=== PATIENT | female | born 1935 | race Caucasian/White ===

== ENCOUNTER → 2018-01-13 10:54 | Outpatient (CLI) | payer MEDICARE, OTHER, SELFPAY ==
--- NOTE | 2018-01-13 11:04 | XR_ITS ---
XR hip LT 2-3V w/pelvis HISTORY: ITS.REASON: LEFT HIP PAIN ORDERING PHYSICIAN: Isauro Garrett MD PATIENT AGE: 82 years COMPARISON: None FINDINGS: No fracture or dislocation is evident. There is mild asymmetrical joint space narrowing of both hips left slightly greater than right. No lytic or blastic change. Unremarkable soft tissues IMPRESSION: Mild osteoarthritic change of both hips
== END ==
PROVIDERS: PCP Family Medicine; Visit Provider Family Medicine
DX: M25.552 Pain in left hip (principal)
CPT/HCPCS: 73502

== ENCOUNTER → 2018-01-30 13:09 | Outpatient (CLI) | payer MEDICARE, OTHER, SELFPAY ==
--- NOTE | 2018-01-30 13:15 | CT_ITS ---
CT hip LT wo con INDICATION: ITS.REASON: LT HIP PAIN ORDERING PHYSICIAN: Isauro Garrett MD PATIENT AGE: 82 years COMPARISON: None TECHNIQUE: Axial images are obtained without contrast. Sagittal and coronal reformatted images are reviewed as well. All CT scans at the facility use one or more dose reduction, viz: automated exposure control, ma/kV adjustment per patient size (including targeted exams where dose is matched to indication, i.e. head), or iterative reconstruction technique. FINDINGS: The left hip has an unremarkable appearance. No femur or acetabular fracture or dislocation is evident. There is only minimal narrowing of the hip joint space superiorly. No obvious soft tissue mass. There is ill-defined decreased density involving the mid aspect of the sacrum on the left. The superior sacrum is not imaged. Similar but less apparent lucency noted in the right mid sacrum. There is diffuse osteopenia of the sacrum. These findings are consistent with nondisplaced insufficiency fractures of the sacrum. On the sagittal reformatted images there is some minimal buckling of the mid aspect of the sacrum. This is age indeterminate. IMPRESSION: 1. Bilateral insufficiency fractures of the sacrum. 2. Buckling of the mid aspect of the sacrum suggesting nondisplaced fracture. 3. Negative CT of the left hip IMPRESSION:
== END ==
PROVIDERS: Family Provider Family Medicine; PCP Family Medicine; Visit Provider Family Medicine
DX: M25.552 Pain in left hip (principal)
CPT/HCPCS: 73700

== ENCOUNTER → 2018-03-27 12:26 | Outpatient (CLI) | payer MEDICARE, OTHER, SELFPAY ==
--- NOTE | 2018-03-27 12:30 | XR_ITS ---
XR hip RT 2-3V w/pelvis HISTORY: ITS.REASON: right hip pain ORDERING PHYSICIAN: Chuy Arguello MD PATIENT AGE: 83 years COMPARISON: None FINDINGS: No acute fracture or dislocation evident of the right hip. Increase in sclerosis is noted over the sacrum along the lower aspect of both SI joints and may be due to healing insufficiency fractures that were seen on a recent CT of 01/30/2018.. Calcification noted along the medial aspect of the left obturator foramen and may be due to a healing inferior pubic ramus fracture IMPRESSION: 1. No acute finding of the right hip. 2. Suspect healing fractures of the sacrum in the left inferior pubic ramus
--- NOTE | 2018-03-27 12:30 | XR_ITS ---
XR hip LT 2-3V w/pelvis HISTORY: Left hip pain ITS.REASON: left hip trochanteric bursitis ORDERING PHYSICIAN: Chuy Arguello MD PATIENT AGE: 83 years COMPARISON: 01/13/2018 FINDINGS: There are mild osteoarthritic changes of the left hip. No acute fracture or dislocation is evident. Faint calcification has developed projecting over the medial aspect of the left obturator foramen and could be due to a healing inferior pubic ramus fracture with callus formation. CT may confirm. The greater trochanter has an unremarkable appearance. IMPRESSION: 1 mild osteoarthritic change left hip. 2. Faint calcification along the medial aspect of the left obturator foramen possibly related to healing rami fractures
--- NOTE | 2018-03-27 12:30 | XR_ITS ---
XR sacrum coccyx min 2V CLINICAL INDICATION: ITS.REASON: bilateral sacral insufficiency fx ORDERING PHYSICIAN: Chuy Arguello MD PATIENT AGE: 83 years Comparison: 01/13/2018 FINDINGS: There is slight increased sclerosis involving the mid aspect of the sacrum on both sides and may be related to healing insufficiency fractures. No displaced fracture is apparent. There are degenerative changes of the lower lumbar spine. IMPRESSION: Slight increased sclerosis of the right and left aspect of the sacrum which may be due to healing insufficiency fractures
== END ==
PROVIDERS: PCP Family Medicine; Visit Provider Orthopaedic Surgery
DX: M70.62 Trochanteric bursitis, left hip (principal); M25.551 Pain in right hip; M84.48XA Pathological fracture, other site, initial encounter for fracture
CPT/HCPCS: 72220; 73502

== ENCOUNTER → 2018-04-06 09:55 | Outpatient (CLI) | payer MEDICARE, OTHER, SELFPAY ==
--- NOTE | 2018-04-06 | CA_ITS ---
PROCEDURE: 2-D M-mode and color Doppler study INDICATIONS FOR THE TEST: Chest pain COPD Heart Murmur Tobacco SmokingEX Palpitations Fatigue+ Syncope Edema+ Hypertension+Diabetes Mellitus Rheumatic Fever SOB MAY Obesity Hyperlipidemia+ Family History HD+ Additional History CHF, hx MO 2 years ago PATIENT INFORMATION HEIGHT: 66 WEIGHT: 137 GENDER: Female B/P: 168/97 2-D/M-MODE INTERPRETATION: 2-D MEASUREMENTS OBSERVED VALUES IN CMS Right Ventricular Dimension (RVDd) 2.3 Interventricular Septum (Thickness)(IVsd) 0.7 Left Ventricular Internal Dimensions(LVIDd) 4.2 Left Ventricular Posterior Wall (Thickness)(LVPWd) 0.7 Aortic Root 2.9 Aortic Cusp Separation 2.1 Left Atrial Dimensions (LAD) 3.5 2D 1. Left atrium is mildly enlarged, left ventricle is normal size, mild concentric left ventricular hypertrophy, visually estimated ejection fraction 55% with no regional wall motion abnormality. 2. The right atrium and right ventricle are normal size and contractility. 3. The aortic valve is minimally thickened and fibrosed. 4. The mitral and tricuspid valvular grossly normal. 5. The pulmonic valve is poorly visualized. 6. No significant pericardial effusion noted. DOPPLER INTERROGATION: Doppler interrogation of the aortic, mitral and tricuspid valvular presence of mild mitral and tricuspid regurgitation, tricuspid regurgitation jet velocity is inadequate for calculation of the right ventricular systolic pressure, grade 1 diastolic dysfunction seen with tissue Doppler evidence of raised left atrial pressure CONCLUSION: 1. Mildly enlarged left atrium, normal left ventricular size, mild concentric left ventricular hypertrophy, visually estimated ejection fraction 55% with no regional wall motion abnormality, grade 1 diastolic dysfunction seen with tissue Doppler evidence of raised left atrial pressure. 2. Mild mitral and tricuspid regurgitation 3. No significant pericardial effusion noted.
--- NOTE | 2018-04-06 10:58 | XR_ITS ---
XR DEXA axial skeleton HISTORY: ITS.REASON: OSTEOPAROSIS ORDERING PHYSICIAN: Ayleen Munoz PATIENT AGE: 83 years COMPARISON: None FINDINGS: The BMD measured at the Right Total femoral neck is 0.471 g/cm squared with a T score of -4.3. This is considered Osteoporotic according to the World Health Organization criteria. Fracture risk is High. Treatment is advised. IMPRESSION: Osteoporosis with high fracture risk. Treatment is advised. Recommend follow-up exam March 2019
== END ==
PROVIDERS: Family Provider Family Medicine; PCP Family Medicine; Visit Provider Nurse Practitioner Family
DX: M81.0 Age-related osteoporosis without current pathological fracture (principal); I50.9 Heart failure, unspecified; I48.0 Paroxysmal atrial fibrillation
CPT/HCPCS: 77080; 93306

== ENCOUNTER → 2018-10-31 09:39 | Outpatient (CLI) | payer MEDICARE, OTHER, SELFPAY ==
--- NOTE | 2018-10-31 09:47 | XR_ITS ---
XR hip LT 2-3V w/pelvis HISTORY: Follow-up hip replacement ITS.REASON: sp LT bipoblar hemiarthroplasty DOS 10/19/18 ORDERING PHYSICIAN: Chuy Arguello MD PATIENT AGE: 83 years COMPARISON: 10/18/2018 FINDINGS: Status post bipolar prosthesis placed on the left with good alignment. There is no fracture of the pubis on the left medially. IMPRESSION: Good alignment status post left hip bipolar hemiarthroplasty placement
--- NOTE | 2018-10-31 09:47 | XR_ITS ---
XR humerus LT CLINICAL INDICATION: Follow-up ORIF ITS.REASON: sp ORIF LT humerus, DOS 10/19/18 ORDERING PHYSICIAN: Chuy Arguello MD PATIENT AGE: 83 years Comparison: 10/18/2018 FINDINGS: Status post ORIF proximal left humeral fracture. Bone plate remains in good position along with bone cement at the fracture site. There is good alignment. IMPRESSION: No change status post ORIF left humeral neck fracture with good alignment
== END ==
PROVIDERS: PCP Family Medicine; Visit Provider Orthopaedic Surgery
DX: Z48.89 Encounter for other specified surgical aftercare (principal)
CPT/HCPCS: 73060; 73502

== ENCOUNTER → 2018-12-05 13:08 | Outpatient (CLI) | payer MEDICARE, OTHER, SELFPAY ==
--- NOTE | 2018-12-05 13:17 | XR_ITS ---
XR shoulder LT min 2V HISTORY: ITS.REASON: sp ORIF LT proximal humerus dos 10/19/18 ORDERING PHYSICIAN: Chuy Arguello MD PATIENT AGE: 83 years Comparison: 10/16/2018 FINDINGS: Status post ORIF humeral neck fracture. Bone plate with multiple screws is present from a lateral approach. Bone cement also present at the fracture site. There is good alignment. There are multiple old left-sided rib fractures IMPRESSION: Good alignment status post ORIF left humeral neck fracture.
== END ==
PROVIDERS: PCP Family Medicine; Visit Provider Orthopaedic Surgery
DX: Z48.89 Encounter for other specified surgical aftercare (principal)
CPT/HCPCS: 73030

== ENCOUNTER → 2019-01-16 13:06 | Outpatient (CLI) | payer MEDICARE, OTHER, SELFPAY ==
--- NOTE | 2019-01-16 13:13 | XR_ITS ---
XR shoulder LT min 2V HISTORY: Follow-up ORIF/fracture ITS.REASON: sp ORIF LT proximal humerus dos 10/19/18 ORDERING PHYSICIAN: Chuy Arguello MD PATIENT AGE: 83 years Comparison: 12/05/2018 FINDINGS: Status post ORIF left humerus neck fracture with lateral bone plate along the humeral head neck and proximal shaft. Bone cement noted at the fracture site. There is good alignment. No evidence of dislocation. There are multiple old left-sided rib fractures. IMPRESSION: Good alignment status post ORIF left humeral neck fracture
--- NOTE | 2019-01-16 13:13 | XR_ITS ---
XR hip LT 2-3V w/pelvis HISTORY: Follow-up hip replacement ITS.REASON: sp LT bipolar hemiarthroplasty ORDERING PHYSICIAN: Chuy Arguello MD PATIENT AGE: 83 years COMPARISON: 10/31/2018 FINDINGS: Bipolar prosthesis remains in place within the left hip with good alignment. No evidence of orthopedic complications. There is sclerosis of the left superior and inferior pubic ramus junction consistent with an old fracture as before. IMPRESSION: No change status post left hip bipolar prosthesis placement with good alignment
== END ==
PROVIDERS: PCP Family Medicine; Visit Provider Orthopaedic Surgery
DX: Z48.89 Encounter for other specified surgical aftercare (principal); M25.512 Pain in left shoulder; M25.552 Pain in left hip
CPT/HCPCS: 73030; 73502

== ENCOUNTER → 2020-01-14 09:08 | Outpatient (CLI) | payer MEDICARE, OTHER, SELFPAY ==
--- NOTE | 2020-01-14 09:26 | XR_ITS ---
PROCEDURE: XR LUMBAR SPINE MIN 4V CLINICAL INDICATION: The LOW BACK PAIN COMPARISON: ABDPELW CT abdomen pelvis w con from 05/07/2018 FINDINGS: There is normal alignment. There is diffuse osteopenia. There is acax-ig-ecrwtahs wedging the L2 vertebral body with loss of height centrally and anteriorly of approximately 30 percent. This was not present on a previous CT scan of 05/07/2018. There is minimal wedging of the L1 vertebral body 10-15 percent in very slight loss of height anteriorly L3. There is degenerative disc disease at L4-5 and L5-S1 and L1-L2 and T12-L1. No obvious retropulsion. The lumbar spine is partially obscured from the moderate amount of gas and stool within the bowel. There is a left hip prosthesis present. IMPRESSION: Mild wedging of L1-L2 and L3 greatest at the L2 level which has developed since previous CT scan. Consider MRI to determine if the fractures are acute . Dictated by: Iker Haile MD 01/16/2020 07:18 Electronically signed by Iker Haile MD in [facility] 01/16/2020 07:18
== END ==
PROVIDERS: PCP Family Medicine; Visit Provider Nurse Practitioner Family
DX: M54.5 Low back pain (principal)
CPT/HCPCS: 72110

== ENCOUNTER → 2020-02-05 10:52 | Outpatient (CLI) | payer MEDICARE, OTHER, SELFPAY ==
--- NOTE | 2020-02-05 10:56 | MR_ITS ---
PROCEDURE: MR LUMBAR SPINE WO CON CLINICAL INDICATION: COMPRESSION FX IN BACK. BACK PAIN WORSE ON RT SIDE WITH PAIN RADIATING DOWN RT LEG. NO INJURY. PAIN WORSE WHEN STANDING. PRIOR X-RAY 01-14-20 COMPARISON: CT ABDPELW CT abdomen pelvis w con from 05/07/2018 CR XR LUMBAR SPINE MIN 4V from 01/14/2020 TECHNIQUE: Standard multiplanar multiecho sequences are performed without contrast. 3-D MIP and myelographic images are also rendered and reviewed FINDINGS: The spinal cord ends at the L2 level. T11-T12 is unremarkable. T12-L1 unremarkable. L1-L2: Compression fractures present involving L2 with loss of height centrally and anteriorly of approximately 50 percent. There is mild retropulsion of the posterior superior aspect of L2 by approximately 5 mm. There is superior endplate is irregular with some increased T2 signal within the disc space. Edematous changes involve the remaining L2 vertebral body consistent with an acute compression fracture with bone marrow edema. There is bulging disc at L1-L2. There is facet ligamentum hypertrophy with moderate bilateral lateral recess and foraminal narrowing. There is kyphosis at the L1-L2 level. L2-L3: Facet ligamentum hypertrophy with moderate to severe bilateral lateral recess and foraminal narrowing L3-L4: Mild bulging disc with facet ligamentum hypertrophy with with resultant moderate to severe bilateral lateral recess and foraminal narrowing. There is transverse narrowing of the canal of 9 mm. L4-5: 3 mm anterolisthesis of L4 with bulging disc along with facet and ligamentum hypertrophy with moderate right and moderate to severe left foraminal narrowing. L5-S1: Facet ligamentum hypertrophy with right lateral recess and foraminal narrowing. 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 IMPRESSION: 1. L1-L2: Compression fractures present involving L2 with loss of height centrally and anteriorly of approximately 50 percent. There is mild retropulsion of the posterior superior aspect of L2 by approximately 5 mm. There is superior endplate is irregular with some increased T2 signal within the disc space. Edematous changes involve the remaining L2 vertebral body consistent with an acute compression fracture with bone marrow edema. There is bulging disc at L1-L2. There is facet ligamentum hypertrophy with moderate bilateral lateral recess and foraminal narrowing. There is kyphosis at the L1-L2 level. 2. L2-L3: Facet ligamentum hypertrophy with moderate to severe bilateral lateral recess and foraminal narrowing 3. L3-L4: Mild bulging disc with facet ligamentum hypertrophy with with resultant moderate to severe bilateral lateral recess and foraminal narrowing. There is transverse narrowing of the canal of 9 mm. 4. L4-5: 3 mm anterolisthesis of L4 with bulging disc along with facet and ligamentum hypertrophy with moderate right and moderate to severe left foraminal narrowing. 5. L5-S1: Facet ligamentum hypertrophy with right lateral recess and foraminal narrowing. 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 Dictated by: Iker Haile MD 02/06/2020 10:38 Iker Haile MD in [facility] 02/06/2020 10:38
== END ==
PROVIDERS: PCP Family Medicine; Visit Provider Nurse Practitioner Family
DX: M48.56XA Collapsed vertebra, not elsewhere classified, lumbar region, initial encounter for fracture (principal)
CPT/HCPCS: 72148; 76376

== ENCOUNTER → 2020-04-30 10:07 | Outpatient (CLI) | payer MEDICARE, OTHER, SELFPAY ==
--- NOTE | 2020-04-30 | MR_ITS ---
PROCEDURE: MR LUMBAR SPINE WO CON CLINICAL INDICATION: FX OF SPINE PRE OP FOR SURGERY Hx of spine fxs and this is pre op for kyphoplasty. Prior mr l-spine 02/05/20 COMPARISON: MR MR LUMBAR SPINE WO CON from 02/05/2020 TECHNIQUE: Standard multiplanar multiecho sequences are performed without contrast. 3-D MIP and myelographic images are also rendered and reviewed FINDINGS: Spinal cord ends at the L1-L2 level. L1-L2: There is severe wedge compression changes of L2 with loss of height centrally greater than 50 percent and loss of height anteriorly of approximately 50 percent. There is mild buckling of the posterior cortex of L1 protruding posteriorly by 5 mm. There is facet and ligamentum hypertrophy with narrowing of the canal at this level. The wedge compression changes of L2 have slightly increased compared to the previous exam. There is facet and ligamentum hypertrophy with severe bilateral lateral recess and foraminal narrowing. L2-L3: There has been interval development of wedge compression changes also at L3 with buckling of the cortex posteriorly and superiorly by 4 mm. Facet and ligamentum hypertrophy is present with severe bilateral lateral recess and foraminal narrowing. L3-L4: Degenerative disc disease with facet and ligamentum hypertrophy with severe bilateral foraminal narrowing and moderate bilateral lateral recess narrowing. L4-5: 4 mm anterolisthesis of L4 with bulging disc along with facet and ligamentum hypertrophy with severe bilateral foraminal narrowing. Bilateral lateral recess narrowing also noted. L5-S1: Mild concentric bulging disc with facet and ligamentum hypertrophy. IMPRESSION: Abnormal MRI of the lumbar spine. Wedge compression changes have increased at L1 and have developed at L2 with canal stenosis and retropulsion of the posterior superior aspect of these vertebral bodies. There is facet and ligamentum hypertrophy with bulging disc with multilevel severe lateral recess and foraminal narrowing. Please see above for detailed description at each level Dictated by: Iker Haile MD 05/02/2020 12:13 Iker Haile MD in [facility] 05/02/2020 12:13
== END ==
PROVIDERS: PCP Family Medicine; Visit Provider Orthopaedic Surgery
DX: M54.5 Low back pain (principal)
CPT/HCPCS: 72148; 76376

== ENCOUNTER 2022-05-08 16:07 | Inpatient (IN) | payer MEDICARE, OTHER, SELFPAY ==
--- NOTE | 2022-05-08 16:17 | CT_ITS ---
PROCEDURE INFORMATION: Exam: CT Cervical Spine Without Contrast Exam date and time: 05/08/2022 5:10 PM Age: 87 years old Clinical indication: Injury or trauma; Fall; Additional info: Fall on blood thinner TECHNIQUE: Imaging protocol: Computed tomography of the cervical spine without contrast. Radiation optimization: All CT scans at this facility use at least one of these dose optimization techniques: automated exposure control; mA and/or kV adjustment per patient size (includes targeted exams where dose is matched to clinical indication); or iterative reconstruction. COMPARISON: CT HEAD/BRAIN WO CON 05/08/2022 5:07 PM FINDINGS: Bones/joints: No acute fracture. Normal alignment. C2-C3: No significant disc protrusion. No severe spinal canal stenosis. No significant neural foraminal narrowing. C3-C4: No significant disc protrusion. No severe spinal canal stenosis. No significant neural foraminal narrowing. C4-C5: Disc space narrowing. No significant disc protrusion. No severe spinal canal stenosis. No significant neural foraminal narrowing. C5-C6: Vacuum disc. No significant disc protrusion. No severe spinal canal stenosis. No significant neural foraminal narrowing. C6-C7: Vacuum disc. No significant disc protrusion. No severe spinal canal stenosis. No significant neural foraminal narrowing. C7-T1: No significant disc protrusion. No severe spinal canal stenosis. No significant neural foraminal narrowing. Lungs: Lung apices are normal. Soft tissues: Unremarkable. IMPRESSION: No acute traumatic findings.
--- NOTE | 2022-05-08 16:17 | CT_ITS ---
PROCEDURE INFORMATION: Exam: CT Head Without Contrast Exam date and time: 05/08/2022 5:07 PM Age: 87 years old Clinical indication: Injury or trauma; Fall; Additional info: Fall- on blood thinner TECHNIQUE: Imaging protocol: Computed tomography of the head without contrast. Radiation optimization: All CT scans at this facility use at least one of these dose optimization techniques: automated exposure control; mA and/or kV adjustment per patient size (includes targeted exams where dose is matched to clinical indication); or iterative reconstruction. COMPARISON: HEADWO CT head/brain wo con 10/16/2018 6:51 PM FINDINGS: Brain: Periventricular and subcortical small vessel ischemic changes. Severe atrophy associated. No acute hemorrhage, mass effect, midline shift, or extra-axial fluid collection. Cerebral ventricles: No ventriculomegaly. Paranasal sinuses: Visualized sinuses are unremarkable. No fluid levels. Mastoid air cells: Visualized mastoid air cells are well aerated. Bones/joints: Unremarkable. No acute fracture. Soft tissues: Unremarkable. IMPRESSION: No acute traumatic intracranial abnormality.
--- NOTE | 2022-05-08 16:17 | CT_ITS ---
PROCEDURE INFORMATION: Exam: CTA Abdomen and Pelvis With Contrast Exam date and time: 05/08/2022 5:28 PM Age: 87 years old Clinical indication: Injury or trauma; Fall; Additional info: Fall on warfarin TECHNIQUE: Imaging protocol: Computed tomographic angiography of the abdomen and pelvis with contrast. 3D rendering (Not supervised by radiologist): MIP and/or 3D reconstructed images were created by the technologist. Radiation optimization: All CT scans at this facility use at least one of these dose optimization techniques: automated exposure control; mA and/or kV adjustment per patient size (includes targeted exams where dose is matched to clinical indication); or iterative reconstruction. Contrast material: ISOVUE; Contrast volume: 100 ml; Contrast route: INTRAVENOUS (IV); COMPARISON: CT BONY PELVIS 05/08/2022 5:19 PM FINDINGS: Aorta: There are scattered atherosclerotic changes of the abdominal aorta. There is no aortic aneurysm. Celiac trunk and mesenteric arteries: Celiac trunk, SMA and RAHCEL are patent. Renal arteries: Right left renal arteries are patent. Right iliac arteries: Right iliac arteries are patent. Left iliac arteries: Left iliac arteries are patent. Liver: No mass. Gallbladder and bile ducts: Gallbladder has been removed. There is mild associated dilatation the common bile duct Pancreas: Unremarkable. No mass. No ductal dilation. Spleen: Unremarkable. No splenomegaly. Adrenal glands: Unremarkable. No mass. Kidneys and ureters: Unremarkable. No solid mass. No hydronephrosis. Stomach and bowel: There is a large amount of stool throughout the colon that may reflect some degree of constipation. Appendix: No evidence of appendicitis. Intraperitoneal space: Unremarkable. No free air. No significant fluid collection. Lymph nodes: Unremarkable. No enlarged lymph nodes. Urinary bladder: Unremarkable. No mass. Reproductive: Unremarkable as visualized. Bones/joints: There is an acute subcapital right hip fracture. There is mottled appearance of both right left sacral wings similar to previous exam likely secondary to chronic unresolved stress reactions. Deformity left pubic bone unchanged secondary to old fracture. Soft tissues: Unremarkable. IMPRESSION: 1. No evidence of abdominal. 2. Acute subcapital right hip fracture. 3. Chronic unresolved stress fractures both sacral wings.
--- NOTE | 2022-05-08 16:17 | CT_ITS ---
PROCEDURE INFORMATION: Exam: CT Lumbar Spine Without Contrast Exam date and time: 05/08/2022 5:16 PM Age: 87 years old Clinical indication: Injury or trauma; Fall; Additional info: Fall- PT on blood thinner trauma TECHNIQUE: Imaging protocol: Computed tomography of the lumbar spine without contrast. Radiation optimization: All CT scans at this facility use at least one of these dose optimization techniques: automated exposure control; mA and/or kV adjustment per patient size (includes targeted exams where dose is matched to clinical indication); or iterative reconstruction. COMPARISON: MR LUMBAR SPINE WO CON 04/30/2020 10:19 AM FINDINGS: Bones/joints: There are severe wedge-shaped compression fracture of L2 and biconcave compression fracture of L3 unchanged. There are no new fractures detected. There is mild retro retropulsion of the superior endplate of L2 and L3 resulting in some degree of spinal stenosis unchanged. There are degenerative facet joint changes lower lumbar spine contributing to some degree of foraminal narrowing. There is no paraspinal or prevertebral soft tissue swelling. Soft tissues: Unremarkable. IMPRESSION: Stable severe compression fractures L2 and L3 vertebral bodies. No acute abnormalities.
--- NOTE | 2022-05-08 16:17 | XR_ITS ---
PROCEDURE INFORMATION: Exam: XR Right Shoulder Exam date and time: 05/08/2022 4:54 PM Age: 87 years old Clinical indication: Injury or trauma; Fall; Blunt trauma (contusions or hematomas); Shoulder; Right; Additional info: Fall- hit right shoulder and right hip TECHNIQUE: Imaging protocol: Radiologic exam of the Right shoulder. Views: 2 or more views. COMPARISON: CR (SHOULDER INTERNAL, SHOULDER, SHOULDER INTERNAL) 01/16/2019 1:17 PM FINDINGS: Bones/joints: Acute displaced transverse fracture of the right humeral neck with overriding and foreshortening of the humeral neck. There is relative lateral displacement of the humeral head. There is no dislocation. Soft tissues: Normal. IMPRESSION: Acute displaced transverse fracture right humeral neck.
--- NOTE | 2022-05-08 16:17 | CT_ITS ---
PROCEDURE INFORMATION: Exam: CT Thoracic Spine Without Contrast Exam date and time: 05/08/2022 5:13 PM Age: 87 years old Clinical indication: Injury or trauma; Fall; Additional info: Fall-- PT on blood thinner TECHNIQUE: Imaging protocol: Computed tomography of the thoracic spine without contrast. Radiation optimization: All CT scans at this facility use at least one of these dose optimization techniques: automated exposure control; mA and/or kV adjustment per patient size (includes targeted exams where dose is matched to clinical indication); or iterative reconstruction. COMPARISON: CT CERVICAL SPINE WO CON 05/08/2022 5:10 PM FINDINGS: Bones/joints: No acute fracture. Normal alignment. No significant disc protrusion. No severe spinal canal stenosis. Soft tissues: Unremarkable. IMPRESSION: No acute abnormalities.
--- NOTE | 2022-05-08 16:17 | CT_ITS ---
PROCEDURE INFORMATION: Exam: CTA Chest With Contrast Exam date and time: 05/08/2022 5:28 PM Age: 87 years old Clinical indication: Injury or trauma; Fall; Additional info: Fall on blood thinner TECHNIQUE: Imaging protocol: Computed tomographic angiography of the chest with contrast. 3D rendering (Not supervised by radiologist): MIP and/or 3D reconstructed images were created by the technologist. Radiation optimization: All CT scans at this facility use at least one of these dose optimization techniques: automated exposure control; mA and/or kV adjustment per patient size (includes targeted exams where dose is matched to clinical indication); or iterative reconstruction. Contrast material: ISOVUE; Contrast volume: 100 ml; Contrast route: INTRAVENOUS (IV); COMPARISON: CHESTW CT chest w con 05/07/2018 9:25 AM FINDINGS: Pulmonary arteries: Normal. No pulmonary emboli. Aorta: Unremarkable. No aortic aneurysm. No aortic dissection. Lungs: There are scattered minor atelectatic changes at the lung bases otherwise lung gayle are aerated and clear. Pleural spaces: Unremarkable. No pneumothorax. No pleural effusion. Heart: Heart is borderline enlarged. Mild calcification of coronary arteries. No significant pericardial effusion. Lymph nodes: Unremarkable. No enlarged lymph nodes. Diaphragm: Small hiatal hernia. Bones/joints: Acute comminuted fracture right humeral head and neck. Multiple old healed fractures left ribcage. Soft tissues: Unremarkable. IMPRESSION: 1. No evidence of intrathoracic injury. 2. Acute comminuted fracture right humeral head and neck.
--- NOTE | 2022-05-08 16:22 | CT_ITS ---
PROCEDURE INFORMATION: Exam: CT Pelvis Without Contrast; Skeletal Exam date and time: 05/08/2022 5:19 PM Age: 87 years old Clinical indication: Injury or trauma; Fall; Additional info: Fall on blood thinners TECHNIQUE: Imaging protocol: Computed tomography of the pelvis without contrast. Exam focused on the skeleton. Radiation optimization: All CT scans at this facility use at least one of these dose optimization techniques: automated exposure control; mA and/or kV adjustment per patient size (includes targeted exams where dose is matched to clinical indication); or iterative reconstruction. COMPARISON: ABDPELW CT abdomen pelvis w con 05/07/2018 9:25 AM FINDINGS: Bones/joints: There is an acute subcapital right hip fracture with overriding and foreshortening of the femoral neck and there is angulation at the fracture site. There is no dislocation of the right femoral head. There is a bipolar left hip prosthesis in place. There is deformity of the left pubic bone secondary to old healed fracture. There is mottled sclerotic bone changes involving the right and left sacral ala somewhat less pronounced than previous exam likely representing chronic unresolved stress fractures. Soft tissues: Unremarkable. IMPRESSION: 1. Acute subcapital right hip fracture. 2. Chronic unresolved stress reactions involving the right and left sacral wings. 3. Bipolar left hip prosthesis in place. 4. Deformity left pubic bone secondary to old healed fracture.
--- NOTE | 2022-05-08 16:27 | XR_ITS ---
PROCEDURE INFORMATION: Exam: XR Right Elbow Exam date and time: 05/08/2022 4:54 PM Age: 87 years old Clinical indication: Injury or trauma; Fall; Blunt trauma (contusions or hematomas); Shoulder; Right; Additional info: Fall- hit right shoulder and right hip TECHNIQUE: Imaging protocol: Radiologic exam of the Right elbow. Views: 3 or more views. COMPARISON: CR (SHOULDER INTERNAL, SHOULDER, SHOULDER INTERNAL) 01/16/2019 1:17 PM FINDINGS: Bones/joints: Normal alignment. No fracture. Joint surfaces preserved. Soft tissues: Normal. IMPRESSION: Negative right elbow
--- NOTE | 2022-05-08 16:27 | XR_ITS ---
PROCEDURE INFORMATION: Exam: XR Right Femur Exam date and time: 05/08/2022 4:54 PM Age: 87 years old Clinical indication: Injury or trauma; Fall; Blunt trauma; Hip; Right; Additional info: Fall- hit right hip and right shoulder TECHNIQUE: Imaging protocol: Radiologic exam of the Right femur. Views: 2 views. COMPARISON: CR (PELVIS AP, HIP, PELVIS AP) 01/16/2019 1:17 PM FINDINGS: Bones/joints: Acute displaced subcapital right hip fracture resulting in foreshortening of the femoral neck and varus angulation at the fracture site. Soft tissues: Unremarkable. IMPRESSION: Acute displaced subcapital right hip fracture.
--- NOTE | 2022-05-08 16:27 | XR_ITS ---
PROCEDURE INFORMATION: Exam: XR Right Knee Exam date and time: 05/08/2022 4:54 PM Age: 87 years old Clinical indication: Injury or trauma; Fall; Blunt trauma; Hip; Right; Additional info: Fall- hit right shoulder and right hip TECHNIQUE: Imaging protocol: Radiologic exam of the Right knee. Views: 1 or 2 views. COMPARISON: No relevant prior studies available. FINDINGS: Bones/joints: There are mild degenerative changes involving the medial knee compartment with mild joint space narrowing and subchondral sclerosis. Remaining joint surfaces are preserved. There is no fracture or malalignment.. Soft tissues: Normal. There is no joint effusion. IMPRESSION: Mild degenerative changes medial knee compartment. No acute bony abnormalities.
--- NOTE | 2022-05-08 16:27 | XR_ITS ---
PROCEDURE INFORMATION: Exam: XR Right Humerus Exam date and time: 05/08/2022 4:54 PM Age: 87 years old Clinical indication: Injury or trauma; Fall; Blunt trauma (contusions or hematomas); Shoulder; Right; Additional info: Fall- hit right shoulder and right hip. See right elbow images that are included. TECHNIQUE: Imaging protocol: Radiologic exam of the Right humerus. Views: 2 or more views. COMPARISON: CR (HUMERUS AP, HUMERUS, HUMERUS AP) 10/31/2018 9:51 AM FINDINGS: Bones/joints: Acute displaced transverse fracture of the right humeral neck with overriding and relative lateral displacement of the distal fracture component. There is no dislocation of the humeral head. Remaining osseous structures are intact. Soft tissues: Normal. IMPRESSION: Acute displaced fracture right humeral neck.
--- NOTE | 2022-05-08 16:29 | HMH.EDGENADL ---
Discharge Plan Disposition Patient Disposition: Admitted As Inpatient Chief Complaint: Fall Prescriptions Prescriptions: No Action aspirin 81 mg tablet,chewable 81 mg PO DAILY amiloride-hydrochlorothiazide 5-50 mg tablet 1 tab PO DAILY Rx Instructions: 5/50MG metoprolol succinate 50 MG tablet 50 mg PO DAILY warfarin 3 MG tablet 3.5 mg PO DAILY ibandronate 150 MG tablet 150 mg PO WEEKLY hydrocodone-acetaminophen 1 TAB tablet 1 tab PO Q4HP PRN (Reason: Moderate To Severe Pain) Qty: 120 0RF Referrals Follow up/Referrals: Provider,Referral, MD [Referring] - See instructions Clinical Impressions Clinical Impression: Fall, Closed right hip fracture, Closed fracture of proximal end of right humerus Discharge ED Provider: Tigre Rivero General Adult HPI General Chief complaint: Fall Stated complaint: fall Time Seen by Provider: 05/08/22 16:29 History of Present Illness HPI narrative: Patient is an 87-year-old female with past medical history of atrial fibrillation on warfarin who presents emergency department for evaluation of traumatic injury sustained a mechanical fall. Patient fell just prior to arrival on her right side without loss of consciousness. She is complaining of right shoulder pain, right hip pain. Pain is moderate to severe in intensity. No other acute complaints at this time. Related Data Home Medications Medication Instructions Recorded Confirmed amiloride 5 mg-hydrochlorothiazide 1 tab PO DAILY Hypertension 02/13/18 01/16/19 50 mg tablet aspirin 81 mg chewable tablet 81 mg PO DAILY HEART HEALTH 02/13/18 01/16/19 metoprolol succinate 50 mg 50 mg PO DAILY Hypertension 05/07/18 01/16/19 tablet,extended release 24 hr warfarin 3 mg tablet 3.5 mg PO DAILY daily 10/16/18 01/16/19 ibandronate 150 mg tablet 150 mg PO WEEKLY Arthritis 10/17/18 01/16/19 Previous Rx's Medication Instructions Recorded hydrocodone 5 mg-acetaminophen 325 1 tab PO Q4HP PRN Moderate To 10/20/18 mg tablet Severe Pain #120 tabs Allergies Allergy/AdvReac Type Severity Reaction Status Date / Time No Known Allergies Allergy Verified 01/16/19 14:30 [facility] Social History Smoking Status: Never smoker alcohol intake: never current occupational status: retired Travel in the last 8 weeks: None household members: none housing: house current occupational exposures/hazards: No caffeine: No ROS Obtained: Yes Systems reviewed as appropriate & no additional complaints except as documented Physical Exam General General appearance: alert and in no apparent distress Head Head exam: atraumatic and normocephalic Eye Eye exam: Present PERRL and EOMI ENT ENT exam: Present mucous membranes moist Neck Neck exam: Present normal inspection Chest Chest inspection: Present normal inspection and symmetric chest wall rise Respiratory Respiratory exam: Present normal lung sounds bilaterally; Absent respiratory distress Cardiovascular Cardiovascular exam: Present regular rate and normal rhythm Abdominal Exam Abdominal exam: Present soft; Absent tenderness Extremities Exam Extremities exam: Present normal inspection and tenderness (Right proximal humerus tenderness, right hip tenderness) Neurological Exam Neurological exam: Present alert and oriented X3 Psychiatric Psychiatric exam: Present normal affect Skin Skin exam: Present warm and dry Medical Decision Making Jose Inquiry Pt receiving controlled substance: No Vital Signs: 05/08/22 16:32 Temperature 97.5 F L Temperature Source Oral Pulse Rate [Left Radial] 79 Respiratory Rate 20 Blood Pressure [Right Arm] 110/74 Blood Pressure Mean [Right Arm] 86 02 Sat by Pulse Oximetry 95 Oxygen Delivery Method Room Air Lab Data Lab Results 05/08/22 16:44: WBC 5.6, RBC 4.15 L, Hgb 12.8, Hct 39.3, MCV 94.8, MCH 30.8, MCHC 32.5, RDW 13.7, Plt Count 219, MPV 7.3 L, Neut % (Auto) 81.5 H, Lym
[2022-05-08 16:32] VITALS: BP 110/74; PULSE 79; RESP 20; TEMP 36.4; O2SAT 95
[2022-05-08 16:50] LABS: Basophils # 0.1 K/mm3 (0-0.2); Eosinophils # 0.1 K/mm3 (0.0-0.4); Eosinophils % 1.1 % (0.1-12.0); Hematocrit 39.3 % (37.0-47.0); Hemoglobin 12.8 g/dL (12.2-16.2); Lymphocytes # 0.6 K/mm3 (0.7-4.5); Lymphocytes % 10.9 % (10-50); Mean Corpuscular HGB Conc 32.5 g/dL (31.8-35.4); Mean Corpuscular Hemoglobin 30.8 pg (27.0-31.2); Mean Corpuscular Volume 94.8 fl (81-99); Mean Platelet Volume 7.3 fl (7.4-10.4); Monocytes # 0.3 K/mm3 (0.1-1.0); Monocytes % 4.5 % (1.7-9.3); Neutrophils # 4.6 K/mm3 (1.8-7.8); Neutrophils % 81.5 % (37.0-80.0); Platelet Count 219 K/mm3 (142-424); Red Blood Count 4.15 M/mm3 (4.20-5.40); Red Cell Distribution Width 13.7 % (11.5-17.5); White Blood Count 5.6 K/mm3 (4.8-10.8)
[2022-05-08 16:55] LABS: Chloride 88 mmol/L (98-107); Potassium 3.9 mmoL/L (3.5-5.1); Sodium 128 mmol/L (136-145)
[2022-05-08 16:57] LABS: Alanine Aminotransferase 19 U/L (12-78); Alkaline Phosphatase 92 U/L (38-126); Aspartate Amino Transferase 32 U/L (14-36); Bilirubin,Total 0.4 mg/dl (0.2-1.3); Blood Urea Nitrogen 17 mg/dl (7-17); Creatinine Clearance Estimated 33 mL/min (50-200); Estimated Glomerular Filt Rate 79 ml/min (>60); GFR (African American) 96 ML/MIN (>60)
[2022-05-08 16:58] LABS: Albumin/Globulin Ratio 1.3 (1.1-1.8); Anion Gap 10.9 mEq/L (5-15); Calcium 9.1 mg/dl (8.4-10.2); Carbon Dioxide 33 mmol/L (22.0-30.0); Globulin 3.2 g/dL (1.3-3.2); Glucose 141 mg/dl (74-100); Total Protein,Serum 7.2 g/dl (6.3-8.2)
--- NOTE | 2022-05-08 17:22 | CT_ITS ---
PROCEDURE INFORMATION: Exam: CT Right Upper Extremity Without Contrast, Shoulder Exam date and time: 05/08/2022 5:25 PM Age: 87 years old Clinical indication: Injury or trauma; Fall; Additional info: Fall, fracture on blood thinner TECHNIQUE: Imaging protocol: Computed tomography of the Right upper extremity without contrast. Exam focused on the shoulder. 3D rendering (Not supervised by radiologist): MIP and/or 3D reconstructed images were created by the technologist. Radiation optimization: All CT scans at this facility use at least one of these dose optimization techniques: automated exposure control; mA and/or kV adjustment per patient size (includes targeted exams where dose is matched to clinical indication); or iterative reconstruction. COMPARISON: CR XR SHOULDER RT MIN 2V 05/08/2022 4:54 PM FINDINGS: Bones/joints: There is an acute comminuted fracture involving the right humeral head and neck with comminuted vertically oriented fracture through the lateral aspect of the humeral head a transverse fracture through the humeral neck. There is offset and displacement at the head neck junction. There is no dislocation of the humeral head in relation to the acetabular fossa. Remainder of the visualized osseous structures are intact. Soft tissues: Surrounding soft tissues are unremarkable. IMPRESSION: Acute malaligned comminuted fracture of the right humeral head and neck. No dislocation.
--- NOTE | 2022-05-08 19:45 | EXP.HP ---
History of Present Illness *Admission Date: 05/08/22 *Reason for visit:: Fall, hip fracture *History of present illness: Ms. Rainey is a 87-year-old female with a past medical history that is positive for Chronic Atrial Fibrillation on chronic anticoagulation, CAD, Hypertension, Anemia of Chronic Disease. She presents to [facility] through the ER due to a fall that occurred at her home from ground level that occurred a couple hours prior to presentation. The patient was seen in the ER on admission, her biju Orozco was at bedside. The patient reports that she walks with a walker in her home, but walks with a cane to go to her mailbox. She reports that she was walking to her mailbox and lost her balance and fell and hit her right hip. She denies losing consciousness. Neighbors saw her and came to her side and called 911. In the ER, she had multiple imaging that showed a right hip acute subcapital fracture. Her Sodium was in the 128, review shows she has chronically low sodium level. It is noted she takes Coumadin for chronic atrial fibrillation, an INR will be obtained. The patient will be admitted with initial impression: Right Hip Subcapital fracture. Orthopaedic Surgery will be consulted to see. It was discussed with the patient that if her INR is elevated she may need to receive a reversal agent such as vitamin K to undergo surgery and that this can put her at risk for events such as MS or Stroke. She verbalized agreement and understanding and wishes to proceed with reversal agent if needed for safe INR range for surgery. Her Pam ivy at bedside also verbalized understanding. [facility] Medical History (Updated 05/08/22 @ 23:43 by Martine Walker RN) Allergies Atrial fibrillation Cholecystectomy planned History of fall Hypertension Hyponatremia Surgical History (Updated 05/08/22 @ 23:43 by Martine Walker RN) H/O shoulder surgery H/O wrist surgery History of hip replacement Family History Colon cancer Sister Prostate cancer Brother Social History Smoking Status: Never smoker alcohol intake: never current occupational status: retired Travel in the last 8 weeks: None household members: none housing: house current occupational exposures/hazards: No caffeine: No Review of Systems Review of Systems Review of systems:: pertinent systems reviewed and negative unless documented below Constitutional Constitutional: Reports system reviewed and no additional complaints, except as documented Eyes Eyes: Reports system reviewed and no additional complaints, except as documented ENT Ears, Nose, Mouth, and Throat: Reports system reviewed and no additional complaints, except as documented *Cardiovascular Cardiovascular: Reports system reviewed and no additional complaints, except as documented *Respiratory Respiratory: Reports system reviewed and no additional complaints, except as documented *Gastrointestinal Gastrointestinal: Reports system reviewed and no additional complaints, except as documented *Genitourinary Genitourinary: Reports system reviewed and no additional complaints, except as documented *Musculoskeletal Musculoskeletal: Reports arthralgias Comments: Right Hip externally rotated, right leg shorter in length compared to the left Integumentary/Breasts Skin/Breast: Reports system reviewed and no additional complaints, except as documented *Neurologic Neurologic: Reports system reviewed and no additional complaints, except as documented Psychiatric Psychiatric: Reports system reviewed and no additional complaints, except as documented Endocrine Endocrine: Reports system reviewed and no additional complaints, except as documented Hematologic/Lymphatic Hematologic/Lymphatic: Reports system reviewed and no additional complaints, except as documented Allergic/Immunologic All
[2022-05-08 20:41] LABS: Microscopic, Urine URINE MICROSCOPIC (MICROSCOPIC)
[2022-05-08 20:44] LABS: Appearance,Urine CLEAR (Clear); Bilirubin,Urine Negative (Negative); Blood, Urine TRACE-I (Negative); Color,Urine YELLOW (Yellow); Glucose,Urine (UA) Negative (Negative); Ketones,Urine Negative (Negative); Leukocyte Esterase,Urine TRACE (Negative); Nitrate,Urine Negative (Negative); Protein,Urine Negative (Negative); Urobilinogen,Urine 0.2 EU/dl (0.2)
[2022-05-08 20:51] LABS: INR 2.12 (0.9-1.1); Prothrombin Time 21.9 seconds (10.1-12.5)
[2022-05-08 20:55] LABS: WBC,Urine Occasional #/hpf (0-3)
[2022-05-08 20:56] LABS: Amorphous Sediment,Urine Trace /lpf
[2022-05-08 21:10] VITALS: BP 115/78; PULSE 81; RESP 20; TEMP 36.4; O2SAT 95
[2022-05-08 21:15] LABS: Coronavirus 19, PCR Not Detected (NotDetected); Influenza A, PCR Not Detected (NotDetected); Influenza B, PCR Not Detected (NotDetected)
[2022-05-08 21:41] VITALS: BP 183/71; PULSE 71; RESP 18; TEMP 36.5; O2SAT 94
--- NOTE | 2022-05-08 21:41 | PC.NURSE ---
PT ARRIVED TO FLOOR VIA STRETCHER AT THIS TIME.
--- NOTE | 2022-05-08 23:27 | PC.NURSE ---
Pt has been living alone and was doing all her ADLs independently. Pt currently dependent d/t fx.
[2022-05-09] VITALS (8 sets, daily range): BP systolic 108–169; BP diastolic 54–81; PULSE 72–90; RESP 16–18; TEMP 36.6–37.4; O2SAT 91–98; BMI 19.9
--- NOTE | 2022-05-09 04:34 | PC.NURSE ---
Pt alert and oriented x 4. Pt has c/o of intermittent pain (R shoulder and R hip), mostly with movement. At rest pt rates her pain a 3/10. Medicating per MAR for pain. Pt is voiding per franks cath. Pt has been NPO since midnight for ortho consult. IV infusing per order. No other c/o or needs voiced at this time. Call light in reach. Bed alarm on for safety.
--- NOTE | 2022-05-09 07:08 | ECG_ITS ---
APPROVED REPORT Exam: Resting ECG HR:73 bpm ECG Measurements Heart Rate 73 AXES CA 172 P 56 QRSd 98 QRS -3 QT 412 T 48 QTc 437 Conclusion SINUS RHYTHM INCOMPLETE RIGHT BUNDLE BRANCH BLOCK [90+ ms QRS DURATION, TERMINAL R IN V1/V2, 40+ ms S IN I/aVL/V4/V5/V6] MINIMAL ST DEPRESSION [0.025+ mV ST DEPRESSION] BORDERLINE ECG UNCONFIRMED REPORT Electronically signed by : Isauro Brice MD 05/09/2022 20:49:20
--- NOTE | 2022-05-09 07:12 | EXP.ACUTE.PN ---
Subjective *Date: 05/09/22 *Time: 09:56 Interval history: Patient's pain appears stable. She is comfortably lying in bed at this time. Pain related to right arm and hip. Denies nausea, vomiting, diarrhea. No shortness of breath or chest pain. Stable on room air. Labs reviewed this morning, INR 1.7. Receiving a unit of FFP this morning. Currently n.p.o. awaiting eval by Ortho. Medical Exam Vital signs and Labs for Last 24 Hours: Vital Signs Temp Pulse Pulse Resp BP BP Pulse Ox 05/09/22 03:55 98.2 F 72 16 108/58 L 93 L 05/08/22 21:41 97.7 F 71 18 183/71 H 94 L 05/08/22 21:10 97.5 F L 81 20 115/78 05/08/22 16:32 97.5 F L 79 20 110/74 95 Intake and Output 05/08/22 05/08/22 05/09/22 15:59 23:59 07:59 Intake Total 120 / 120 426 / 426 Output Total 0 / 0 600 / 600 Balance 120 / 120 -174 / -174 Intake: Intake, Oral Amount 120 / 120 Intake, Total IV Amount 426 / 426 0.9 % Sodium Chloride 1,000 ml 426 / 426 @ 75 mls/hr IV .[id number] COUNT INCLUDES THE [facility] Rx# :[id number] Output: Output, Urine Amount 0 / 0 600 / 600 Other: Number of Unmeasured Voids 0 0 Weight 53.269 kg 52.872 kg Patient Weight 05/09/22 23:59 Weight 52.872 kg Laboratory Results - last 24 hr 05/08/22 16:44: WBC 5.6, RBC 4.15 L, Hgb 12.8, Hct 39.3, MCV 94.8, MCH 30.8, MCHC 32.5, RDW 13.7, Plt Count 219, MPV 7.3 L, Neut % (Auto) 81.5 H, Lymph % (Auto) 10.9, [place] % (Auto) 4.5, Eos % (Auto) 1.1, Baso % (Auto) 2.0, Neut # (Auto) 4.6, Lymph # (Auto) 0.6 L, [place] # (Auto) 0.3, Eos # (Auto) 0.1, Baso # (Auto) 0.1 05/08/22 16:44: Sodium 128 L, Potassium 3.9, Chloride 88 L, Carbon Dioxide 33 H, Anion Gap 10.9, BUN 17, Creatinine 0.70, Estimated Creat Clear 33, Estimated GFR 79, Est GFR ( Amer) 96, Glucose 141 H, Calcium 9.1, Total Bilirubin 0.4, AST 32, ALT 19, Alkaline Phosphatase 92, Total Protein 7.2, Albumin 4.0, Globulin 3.2, Albumin/Globulin Ratio 1.3 05/08/22 19:04: Urine Color Yellow, Urine Appearance Clear, Urine pH 7.0, Ur Specific [place] 1.010, Urine Protein Negative, Urine Glucose (UA) Negative, Urine Ketones Negative, Urine Blood Trace-i, Urine Nitrate Negative, Urine Bilirubin Negative, Urine Urobilinogen 0.2, Ur Leukocyte Esterase Trace, Urine RBC 3-5, Urine WBC Occasional, Amorphous Sediment Trace 05/08/22 20:29: PT 21.9 H, INR 2.12 H 05/08/22 21:08: SARS-CoV-2 (PCR) Not detected, Influenza A Untype (PCR) Not detected, Influenza Type B (PCR) Not detected I & O for Labs for Last 24 Hours: Intake & Output 05/06/22 05/07/22 05/08/22 05/09/22 23:59 23:59 23:59 23:59 Intake Total 120 / 120 426 / 426 Output Total 0 / 0 600 / 600 Balance 120 / 120 -174 / -174 Weight 53.269 kg 52.872 kg Constitutional: Present no acute distress, thin and chronically ill appearing Head: Present atraumatic and normocephalic ENT: Present normal exam, normal oropharynx and mucous membranes moist Comment:: poor dentition Neck: Present normal inspection Respiratory: Present normal respiratory effort; Absent accessory muscle use, rhonchi, wheezes or crackles Cardiac: Present Irregularly Regular GI: Present soft and normal bowel sounds; Absent distention or tenderness Comment:: Tenderness over right hip and right upper humerus/shoulder. Minimal bruising over right shoulder. Minimal shortening of right leg compared to left. Skin: Present intact; Absent erythema Neuro: Present Grossly Intact, alert, awake, oriented x 3 and moves all extremities Assessment and Plan *Assessment and plan (1) Closed right hip fracture: Status: Acute Category: Medical Code(s): S72.001A - Fracture of unspecified part of neck of right femur, initial encounter for closed fracture (2) Closed fracture of proximal end of right humerus: Status: Acute Category: Medical Code(s): S42.201A - Unspecified fracture of upper end of right humerus, initial encounter for closed fracture (3) Atrial fi
[2022-05-09 07:23] LABS: Alanine Aminotransferase 19 U/L (12-78); Albumin Level 3.4 g/dl (3.5-5.0); Albumin/Globulin Ratio 1.2 (1.1-1.8); Alkaline Phosphatase 77 U/L (38-126); Anion Gap 11.4 mEq/L (5-15); Aspartate Amino Transferase 32 U/L (14-36); Bilirubin,Total 0.7 mg/dl (0.2-1.3); Blood Urea Nitrogen 19 mg/dl (7-17); Calcium 8.4 mg/dl (8.4-10.2); Carbon Dioxide 29 mmol/L (22.0-30.0); Chloride 91 mmol/L (98-107); Creatinine Clearance Estimated 32 mL/min (50-200); Estimated Glomerular Filt Rate 94 ml/min (>60); GFR (African American) 114 ML/MIN (>60); Globulin 2.8 g/dL (1.3-3.2); Glucose 126 mg/dl (74-100); INR 1.71 (0.9-1.1); Potassium 3.4 mmoL/L (3.5-5.1); Prothrombin Time 17.9 seconds (10.1-12.5); Sodium 128 mmol/L (136-145); Total Protein,Serum 6.2 g/dl (6.3-8.2)
[2022-05-09 07:38] LABS: Basophils % 0.2 % (0.1-2.0); Eosinophils % 0.4 % (0.1-12.0); Lymphocytes # 0.8 K/mm3 (0.7-4.5); Lymphocytes % 8.4 % (10-50); Mean Corpuscular HGB Conc 32.9 g/dL (31.8-35.4); Mean Corpuscular Hemoglobin 30.6 pg (27.0-31.2); Mean Corpuscular Volume 93.3 fl (81-99); Mean Platelet Volume 7.6 fl (7.4-10.4); Monocytes # 0.4 K/mm3 (0.1-1.0); Monocytes % 4.2 % (1.7-9.3); Neutrophils # 8.8 K/mm3 (1.8-7.8); Neutrophils % 86.8 % (37.0-80.0); Platelet Count 194 K/mm3 (142-424); Red Blood Count 3.32 M/mm3 (4.20-5.40); White Blood Count 10.1 K/mm3 (4.8-10.8)
[2022-05-09 07:39] LABS: MANUAL DIFFERENTIAL MANUAL DIFFERENTIAL (MANUAL DIFF)
[2022-05-09 08:02] LABS: Hemoglobin 10.2 g/dL (12.2-16.2)
--- NOTE | 2022-05-09 09:54 | EXP.ORTH.CON ---
History of Present Illness *Admission Date: 05/08/22 *History of present illness: Ms. Rainey is a 87-year-old female with a past medical history that is positive for Chronic Atrial Fibrillation on chronic anticoagulation, CAD, Hypertension, Anemia of Chronic Disease. She presents to [facility] through the ER due to a fall that occurred at her home from ground level that occurred a couple hours prior to presentation. The patient was seen in the ER on admission, her neice Pam was at bedside. The patient reports that she walks with a walker in her home, but walks with a cane to go to her mailbox. She reports that she was walking to her mailbox and lost her balance and fell and hit her right hip. She denies losing consciousness. Neighbors saw her and came to her side and called 911. Work-up revealed Right femoral neck fracture and right proximal humerus fracture. Patient suffered similar injuries a few years ago on the left side had hemiarthroplasty of left hip and ORIF of the proximal humerus. It is noted that she had return to function in regards to walking with a cane independently at home. She reports that the pain in her shoulder is worse today than the pain in her hip. She has been monitored with INR which is decreasing at this point. Admitted to the hospital for definitive treatment of orthopedic injuries. [facility] Medical History Allergies Atrial fibrillation Cholecystectomy planned History of fall Hypertension Hyponatremia Surgical History H/O shoulder surgery H/O wrist surgery History of hip replacement Family History Sister Colon cancer Brother Prostate cancer Social History Smoking Status: Never smoker alcohol intake: never current occupational status: retired Travel in the last 8 weeks: None household members: none housing: house current occupational exposures/hazards: No caffeine: No Review of Systems Review of Systems Review of systems:: pertinent systems reviewed and negative unless documented below *Cardiovascular Cardiovascular: Denies dyspnea on exertion *Respiratory Respiratory: Denies dyspnea on exertion *Neurologic Neurologic: Reports system reviewed and no additional complaints, except as documented Meds Home Medications and Allergies Home Medications Medication Instructions Recorded Confirmed Type amiloride 5 mg-hydrochlorothiazide 1 tab PO DAILY Hypertension 02/13/18 05/08/22 History 50 mg tablet aspirin 81 mg chewable tablet 81 mg PO DAILY HEART HEALTH 02/13/18 05/08/22 History metoprolol succinate 50 mg 50 mg PO DAILY Hypertension 05/07/18 05/08/22 History tablet,extended release 24 hr warfarin 3 mg tablet See Rx Instructions .Route 10/16/18 05/08/22 History .COMPLEX daily ibandronate 150 mg tablet 150 mg PO WEEKLY Arthritis 10/17/18 05/08/22 History hydrocodone 5 mg-acetaminophen 325 1 tab PO Q4HP PRN Moderate To 10/20/18 05/08/22 Rx mg tablet Severe Pain #120 tabs New Prescriptions to Start Prescriptions: Allergies Allergy/AdvReac Type Severity Reaction Status Date / Time No Known Allergies Allergy Verified 01/16/19 14:30 Ortho Exam (Inpt) Vital signs and Labs for Last 24 Hours: Temp Pulse Resp BP Pulse Ox 98.3 F 74 16 127/54 L 94 L 05/09/22 07:32 05/09/22 07:32 05/09/22 07:32 05/09/22 07:32 05/09/22 07:32 Laboratory Results - last 24 hr 05/08/22 16:44: WBC 5.6, RBC 4.15 L, Hgb 12.8, Hct 39.3, MCV 94.8, MCH 30.8, MCHC 32.5, RDW 13.7, Plt Count 219, MPV 7.3 L, Neut % (Auto) 81.5 H, Lymph % (Auto) 10.9, [place] % (Auto) 4.5, Eos % (Auto) 1.1, Baso % (Auto) 2.0, Neut # (Auto) 4.6, Lymph # (Auto) 0.6 L, [place] # (Auto) 0.3, Eos # (Auto) 0.1, Baso # (Auto) 0.1 05/08/22 16:44: Sodium 128 L, [place]
[2022-05-09 11:17] LABS: Lymphocytes % 9 % (10-50); Neutrophils % 91 % (42-76); Platelet Estimate Normal; RBC Morphology Normal; Total Cells Counted 100
--- NOTE | 2022-05-09 11:57 | HMH.PHAINT1 ---
Pharmacy Intervention Comments: Medication reconciliation completed via external fill history and patient interview. Of note, the patient alternates between warfarin 3 mg and 2 mg daily (today 3 mg dose is due). -Monserrat Moran, PharmD Candidate 2022
[2022-05-09 14:20] LABS: Hematocrit 29.2 % (37.0-47.0); Hemoglobin 9.5 g/dL (12.2-16.2)
[2022-05-09 16:07] LABS: INR 1.33 (0.9-1.1); Prothrombin Time 14.1 seconds (10.1-12.5)
[2022-05-10] VITALS (20 sets, daily range): BP systolic 101–148; BP diastolic 47–75; PULSE 69–89; RESP 15–22; TEMP 36.1–43; O2SAT 91–97; BMI 20.3
[2022-05-10 06:52] LABS: Basophils % 0.3 % (0.1-2.0); Eosinophils # 0.1 K/mm3 (0.0-0.4); Eosinophils % 1.4 % (0.1-12.0); Hematocrit 26.4 % (37.0-47.0); Hemoglobin 8.7 g/dL (12.2-16.2); Lymphocytes # 0.9 K/mm3 (0.7-4.5); Lymphocytes % 10.7 % (10-50); Mean Corpuscular Hemoglobin 30.6 pg (27.0-31.2); Mean Corpuscular Volume 92.9 fl (81-99); Mean Platelet Volume 7.6 fl (7.4-10.4); Monocytes # 0.5 K/mm3 (0.1-1.0); Monocytes % 5.9 % (1.7-9.3); Neutrophils # 6.8 K/mm3 (1.8-7.8); Neutrophils % 81.7 % (37.0-80.0); Platelet Count 163 K/mm3 (142-424); Red Blood Count 2.84 M/mm3 (4.20-5.40); White Blood Count 8.3 K/mm3 (4.8-10.8)
[2022-05-10 07:00] LABS: INR 1.21 (0.9-1.1); Prothrombin Time 12.9 seconds (10.1-12.5)
--- NOTE | 2022-05-10 07:00 | PC.NURSE ---
No acute changes since previous assessment. Medicating per MAR for pain, with favorable results. Pt voiding per franks cath. IV infusing per order. Pt has been NPO since midnight for surgery this morning. Call light in reach. Bed alarm on for safety.
[2022-05-10 07:02] LABS: Alanine Aminotransferase 37 U/L (12-78); Albumin Level 3.1 g/dl (3.5-5.0); Albumin/Globulin Ratio 1.1 (1.1-1.8); Alkaline Phosphatase 89 U/L (38-126); Anion Gap 12.3 mEq/L (5-15); Aspartate Amino Transferase 43 U/L (14-36); Bilirubin,Total 0.8 mg/dl (0.2-1.3); Blood Urea Nitrogen 21 mg/dl (7-17); Calcium 8.1 mg/dl (8.4-10.2); Carbon Dioxide 28 mmol/L (22.0-30.0); Chloride 93 mmol/L (98-107); Creatinine Clearance Estimated 33 mL/min (50-200); Estimated Glomerular Filt Rate 94 ml/min (>60); GFR (African American) 114 ML/MIN (>60); Globulin 2.8 g/dL (1.3-3.2); Glucose 101 mg/dl (74-100); Magnesium 1.7 mg/dl (1.6-2.3); Potassium 3.3 mmoL/L (3.5-5.1); Sodium 130 mmol/L (136-145); Total Protein,Serum 5.9 g/dl (6.3-8.2)
--- NOTE | 2022-05-10 08:04 | P.PN_ITS ---
Subjective *Date: 05/10/22 *Time: 08:04 Medical Exam Vital signs and Labs for Last 24 Hours: Vital Signs Temp Pulse Pulse Resp BP BP BP 05/10/22 04:00 98.3 F 86 16 148/58 H 05/09/22 19:46 97.9 F 87 18 166/73 H 05/09/22 11:00 99.1 F 84 18 166/78 H 05/09/22 10:45 99 F 83 18 162/76 H 05/09/22 10:40 98.9 F 82 18 169/78 H 05/09/22 14:55 98.4 F 90 17 167/81 H 05/09/22 10:35 99.3 F 77 18 133/71 Pulse Ox 05/10/22 04:00 96 05/09/22 19:46 91 L 05/09/22 11:00 97 05/09/22 10:45 95 05/09/22 10:40 98 05/09/22 14:55 93 L 05/09/22 10:35 95 Intake and Output 05/09/22 05/10/22 05/10/22 23:59 07:59 15:59 Intake Total 60 / 786.74 875 / 875 Output Total 0 / 700 425 / 425 Balance 60 / 86.74 450 / 450 Intake: Intake, Oral Amount 60 / 360 Intake, Total IV Amount 875 / 875 0.9 % Sodium Chloride 1,000 ml 875 / 875 @ 75 mls/hr IV .[id number] [facility] Rx# :[id number] Output: Output, Urine Amount 0 / 600 425 / 425 Other: Number of Unmeasured Voids 0 0 Weight 54.034 kg Patient Weight 05/10/22 23:59 Weight 54.034 kg Laboratory Results - last 24 hr 05/09/22 06:58: Total Counted 100, Neutrophils % (Manual) 91 H, Lymphocytes % (Manual) 9 L, Platelet Estimate Normal, RBC Morphology Normal 05/09/22 08:13: Blood Type O Positive 05/09/22 14:13: Hgb 9.5 L, Hct 29.2 L 05/09/22 15:39: PT 14.1 H, INR 1.33 H 05/10/22 06:39: WBC 8.3, RBC 2.84 L, Hgb 8.7 L, Hct 26.4 L, MCV 92.9, MCH 30.6, MCHC 33.0, RDW 14.0, Plt Count 163, MPV 7.6, Neut % (Auto) 81.7 H, Lymph % (Auto) 10.7, [place] % (Auto) 5.9, Eos % (Auto) 1.4, Baso % (Auto) 0.3, Neut # (Auto) 6.8, Lymph # (Auto) 0.9, [place] # (Auto) 0.5, Eos # (Auto) 0.1, Baso # (Auto) 0.0 05/10/22 06:39: PT 12.9 H, INR 1.21 H 05/10/22 06:39: Sodium 130 L, Potassium 3.3 L, Chloride 93 L, Carbon Dioxide 28, Anion Gap 12.3, BUN 21 H, Creatinine 0.60, Estimated Creat Clear 33, Estimated GFR 94, Est GFR ( Amer) 114, Glucose 101 H, Calcium 8.1 L, Magnesium 1.7, Total Bilirubin 0.8, AST 43 H D, ALT 37 D, Alkaline Phosphatase 89, Total Protein 5.9 L, Albumin 3.1 L, Globulin 2.8, Albumin/Globulin Ratio 1.1 I & O for Labs for Last 24 Hours: Intake & Output 05/07/22 05/08/22 05/09/22 05/10/22 23:59 23:59 23:59 23:59 Intake Total 120 / 120 786.74 / 786.74 875 / 875 Output Total 0 / 0 700 / 700 425 / 425 Balance 120 / 120 86.74 / 86.74 450 / 450 Weight 53.269 kg 52.872 kg 54.034 kg
--- NOTE | 2022-05-10 08:15 | PC.NURSE ---
pt off floor with surgery
--- NOTE | 2022-05-10 08:22 | EXP.ANES.CKL ---
[facility] Medical History Allergies Atrial fibrillation CAD (coronary artery disease) Cholecystectomy planned History of fall Hypertension Hyponatremia Surgical History H/O shoulder surgery H/O wrist surgery History of hip replacement Family History Sister Colon cancer Brother Prostate cancer Social History Smoking Status: Never smoker alcohol intake: never substance use type: denies use current occupational status: retired Travel in the last 8 weeks: None household members: none housing: house current occupational exposures/hazards: No caffeine: No [facility] Anesthesia Checklist Patient Identification Patient Identification: Arm Band and Verbal (Name & ) Structural Data Admitted From: Home Planned Operative Procedure/s: Low NPO Status Verified Time NPO: 00:00 Chart Verification Results Verified: CBC, BMP and PT, PTT, INR Additional verifications Anesthesia Reactions: No Airway Assessment C-Spine Mobility Assessed: Yes TMJ Mobility Assessed: Yes Dentition: Poor Dentition Neurological Assessment Level of Consciousness: Awake Hx Seizures: No Numbness or tingling in extremities: No Anesthesia Plan Anesthesia Risk discussed: Yes Anesthesia Plan: Verified ASA Class: III Anesthesia Type: Spinal (With General)
--- NOTE | 2022-05-10 14:16 | SUR.OPER ---
late entry bipolar hip finished at 1220. timeout for humerus at 1326. incison for ORIF of proximal humerus at 1331.
--- NOTE | 2022-05-10 15:14 | SUR.OPER ---
1514 family given an update via Eugene Read RN
--- NOTE | 2022-05-10 15:32 | XR_ITS ---
FINAL REPORT CLINICAL HISTORY: ORIF RT HUMERUS IN OR TIME-0.43 FINDINGS: A single fluoroscopic spot film was obtained demonstrating ORIF of the right humerus. 0.43 seconds of fluoroscopy time is reported. IMPRESSION: ORIF of the right humerus. 0.43 seconds of fluoroscopy time. Reviewed, Interpreted and Dictated by Sunny Santoro III, MD Transcribed by Radha Haas Authenticated and [facility]
--- NOTE | 2022-05-10 16:14 | EXP.ANES.I ---
[facility] Anesthesia Record Part I Anesthesia Record I Intake, IV Amount: 2,000 Estimated blood loss (mL): 400 Urine output (mL): 325 Blood Pressure: 112/52 SaO2: 96 Pulse Rate: 81 Respiratory Rate: 16 Temperature: 97.1 F Patient is:: Awake Stable to PACU at:: 16:10
--- NOTE | 2022-05-10 16:31 | XR_ITS ---
FINAL REPORT CLINICAL HISTORY: post op FINDINGS: RIGHT HUMERUS Two views of the right humerus were obtained. There has been interval ORIF of the impacted proximal humeral head fracture. There is inferior subluxation of the humerus of uncertain significance but can be seen with joint effusion. Sideplate and screws are seen. There is soft tissue air. IMPRESSION: ORIF of impacted proximal humeral head fracture. Inferior subluxation of the humerus. Reviewed, Interpreted and Dictated by Sunny Santoro III, MD Transcribed by Radha Haas Authenticated and [facility]
--- NOTE | 2022-05-10 16:41 | SUR.PHASEI ---
1636- Detailed report called to Chelsea Mayberry RN all questions answered
--- NOTE | 2022-05-10 16:52 | XR_ITS ---
PROCEDURE INFORMATION: Exam: XR Right Hip Exam date and time: 05/10/2022 5:15 PM Age: 87 years old Clinical indication: Device placement; Iud placement/localization and other: Hip replacement; Additional info: Post op TECHNIQUE: Imaging protocol: Radiologic exam of the Right hip. Views: 2 or 3 views hip with pelvis when performed. COMPARISON: CT BONY PELVIS 05/08/2022 5:19 PM FINDINGS: Tubes, catheters and devices: Surgical verónica noted Bones/joints: Bilateral hip arthroplasties. No hardware-related complication noted. Soft tissues: Moderate overlying soft tissue swelling and subcutaneous gas in keeping with recent surgery along the right hip. IMPRESSION: Postoperative changes related to recent right hip arthroplasty.
--- NOTE | 2022-05-10 17:11 | EXP.OP.NOTE ---
Date of procedure: 05/10/22 Pre-op Diagnosis:: 1. Right displaced femoral neck fracture #2 right proximal humerus fracture closed comminuted. Post-op Diagnosis:: Same Procedure performed:: 1. Hemiarthroplasty right hip #2 open reduction internal fixation right proximal humerus Surgeon:: Reynaldo Tineo DO Glass Blowing Lathe Operator(s):: Hilton RODRIGUEZ FINAL ASSEMBLY AND PACKING SUPERVISOR:: Daphney Sales Anesthesia: GETA and spinal Estimated blood loss (mL): 300 Clinical Note:: This 87-year-old female who suffered a ground-level fall resulting in a right displaced femoral neck fracture and right comminuted fracture of the proximal humerus. She had had a similar injury in the past on her left side which resulted in hemiarthroplasty of left hip and open reduction internal fixation of the proximal humerus on the left. Presented to the emergency room after fall. I had a long discussion with her regarding treatment options. The situation remains similar to her the one in the past which is a displaced femoral neck fracture and proximal humerus fracture. Given the nature of the femoral neck fracture hemiarthroplasty of the hip was indicated had a long discussion with her regarding treatment options for the shoulder. She was quite happy with the previous treatment of hemiarthroplasty of the hip and open reduction internal fixation of the proximal humerus for which she was able to recover from and return to a community ambulator with a cane. After long discussion she would like to proceed with the same treatment plan hemiarthroplasty of the hip and open reduction internal fixation of the proximal humerus. Operative findings:: Severely comminuted proximal humerus fracture with osteoporosis and displaced right femoral neck fracture Operative note:: Patient identified preoperatively right hip and right shoulder were marked yes my initials then transported the operative suite. Patient was given spinal anesthesia. Then placed in a lateral position with the right hip up right hip was prepped and draped normal sterile fashion. Right upper extremity was carefully positioned because of acute fracture of her proximal humerus. All bony prominences were well-padded. Once prepped and draped final operative timeout performed to identify proper patient procedure and extremity everyone involved in case agrees no counter indication beginning she did receive preoperative antibiotics Marking pen was used to make plan incision over the lateral hip. Skin knife was used incise the skin taken down to the IT band. The IT band was split in line and the Charnley retractor was placed. This revealed the abductors of the hip using a modified Hardinge approach abductors were split retracted anteriorly within the Charnley throughout the procedure. Dissection was taken down to identify the capsule of the hip. The capsule was cut in line and teed at the neck. This exposed the fracture site or fracture hematoma was encountered and drained. Femoral neck cleanup cut was performed fingerbreadth above the lesser trochanter. Very osteoporotic femoral head was removed in its entirety passed the back table and sized. Acetabulum was irrigated and cleaned. Leg was brought anteriorly in the bag and the cookie cutter followed by the canal finder followed by the small broach for lateralization was used. Subsequently broached from size 8 up to size 15. Size 15 gave good fit and fill. The bone at the calcar was weak upon impaction of the final 15 implant there was a crack of the calcar. This was recognized and the Synthes cables were obtained. Cables were placed stabilizing the hemiarthroplasty component which was then impacted into place without difficulty. Standard neck and bipolar head was selected. Impacted into place. Hip was reduced taken through range of motion found to be stable. Copious irrigation wound performed capsule closed with 0 Vicryl stitch abductors repaired with #5 Ethibond suture nonabsorbable. IT band closed with a
--- NOTE | 2022-05-10 21:41 | EXP.PN ---
Subjective *Date: 05/12/22 *Time: 14:32 Interval history: The patient was seen following surgery, she reports feeling very nauseated, zofran given. She denies significant pain, reports very thirsty, requests to drink. Exam Data for Last 24 hours Vital signs and Labs for Last 24 Hours: Temp Pulse Resp BP Pulse Ox 97.7 F 71 16 114/60 94 L 05/10/22 18:45 05/10/22 18:45 05/10/22 18:45 05/10/22 18:45 05/10/22 18:45 Laboratory Results - last 24 hr 05/10/22 06:39: WBC 8.3, RBC 2.84 L, Hgb 8.7 L, Hct 26.4 L, MCV 92.9, MCH 30.6, MCHC 33.0, RDW 14.0, Plt Count 163, MPV 7.6, Neut % (Auto) 81.7 H, Lymph % (Auto) 10.7, [place] % (Auto) 5.9, Eos % (Auto) 1.4, Baso % (Auto) 0.3, Neut # (Auto) 6.8, Lymph # (Auto) 0.9, [place] # (Auto) 0.5, Eos # (Auto) 0.1, Baso # (Auto) 0.0 05/10/22 06:39: PT 12.9 H, INR 1.21 H 05/10/22 06:39: Sodium 130 L, Potassium 3.3 L, Chloride 93 L, Carbon Dioxide 28, Anion Gap 12.3, BUN 21 H, Creatinine 0.60, Estimated Creat Clear 33, Estimated GFR 94, Est GFR ( Amer) 114, Glucose 101 H, Calcium 8.1 L, Magnesium 1.7, Total Bilirubin 0.8, AST 43 H D, ALT 37 D, Alkaline Phosphatase 89, Total Protein 5.9 L, Albumin 3.1 L, Globulin 2.8, Albumin/Globulin Ratio 1.1 I & O for Last 24 hours: Intake & Output 05/07/22 05/08/22 05/09/22 05/10/22 23:59 23:59 23:59 23:59 Intake Total 120 / 120 786.74 / 786.74 2875 / 2875 Output Total 0 / 0 700 / 700 425 / 425 Balance 120 / 120 86.74 / 86.74 2450 / 2450 Weight 53.269 kg 52.872 kg 54 kg *Routine HEENT Exam Head: Present normocephalic Eye: Present EOMI and PERRL ENT: Present mucous membranes moist *Routine Neck Exam Neck: Present supple *Routine Respiratory Exam Respiratory: Present CTA bilaterally *Routine Cardiovascular Exam Cardiovascular: Present RRR and irregular rhythm *Routine Abdominal Exam Abdominal: Present soft and normoactive bowel sounds *Routine Extremities Exam Comments: Right upper extremity and right hip with surgical dressings in place, dressings clean, dry and intact. Assessment and Plan *Assessment and plan (1) Closed right hip fracture: Status: Acute Category: Medical Code(s): S72.001A - Fracture of unspecified part of neck of right femur, initial encounter for closed fracture (2) Closed fracture of proximal end of right humerus: Status: Acute Category: Medical Code(s): S42.201A - Unspecified fracture of upper end of right humerus, initial encounter for closed fracture (3) Atrial fibrillation: Status: Acute Category: Medical Code(s): I48.91 - Unspecified atrial fibrillation (4) Hyponatremia: Status: Acute Category: Medical Code(s): E87.1 - Hypo-osmolality and hyponatremia (5) History of fall: Status: Acute Category: Medical Code(s): Z91.81 - History of falling (6) CAD (coronary artery disease): Status: Acute Category: Medical Code(s): I25.10 - Atherosclerotic heart disease of [place] coronary artery without angina pectoris (7) Anemia of chronic disease: Status: Acute Category: Medical Code(s): D63.8 - Anemia in other chronic diseases classified elsewhere (8) Anticoagulated on Coumadin: Status: Acute Category: Medical Code(s): Z51.81 - Encounter for therapeutic drug level monitoring; Z79.01 - terminal carman (current) use of anticoagulants Plan 87-year-old female with past medical history of chronic atrial fibrillation on chronic anticoagulation, history of falls, prior left hip fracture with need for repair in 2019, chronic hyponatremia, CAD and anemia of chronic disease presents following a fall from ground level, hit right side, imaging showed a right subcapital fracture and right proximal humeral fracture, ortho consulted Right Hip/Right Humerus Fracture S/p repair, appreciate Orthopaedic services Pain regime Off anticoagulation currently will resume when ok per Ortho
[2022-05-11] VITALS (15 sets, daily range): BP systolic 117–137; BP diastolic 51–66; PULSE 72–91; RESP 15–18; TEMP 36.3–37.1; O2SAT 90–96; BMI 21.2
[2022-05-11 00:03] LABS: POC Glucose,Bedside 112 (70-110)
--- NOTE | 2022-05-11 05:15 | PC.NURSE ---
PATIENTS WEIGHED WITH ABDUCTION PILLOW
--- NOTE | 2022-05-11 05:17 | PC.NURSE ---
Pt has c/o of nausea 2x t/o shift. No emesis noted. Pt has c/o pain in right hip 1x . PRN medication administered per AUG. Pt has slept well t/o night. Tate in place draining clear yellow urine. Pt continues to tolerate RA well with sats >90%. Immobilizer in place and SCDS on left leg. Bed alarm on for pt safety. Call light within reach.
--- NOTE | 2022-05-11 09:04 | EXP.ORTH.PN ---
Subjective *Date: 05/12/22 *Time: 12:03 Interval history: Ms. Rainey is an 87-year-old female patient who underwent an uneventful right hip hemiarthroplasty and right proximal humerus open reduction internal fixation performed by Dr. Tineo yesterday 05/10/2022. This morning the patient is postop day 1 and her daughter is present at the bedside. This morning she reports pain in the right shoulder and right hip as to be expected. She states that her pain is well controlled with as needed pain medication and rest. She states that she was able to eat breakfast this morning and is eating and drinking well without any episodes of nausea or vomiting. She has not yet ambulated. Physical therapy is present at the bedside, the patient was able to sit up at the bedside briefly. No history of any distal tingling/numbness, fevers, chills, or rigors. She denies any other symptoms or concerns at this time. Ortho Exam (Inpt) Vital signs and Labs for Last 24 Hours: Temp Pulse Resp BP Pulse Ox 97.8 F 91 H 16 127/63 90 L 05/11/22 08:00 05/11/22 08:00 05/11/22 08:00 05/11/22 08:00 05/11/22 08:00 Laboratory Results - last 24 hr 05/10/22 06:44: POC Glucose 112 H I & O for Labs for Last 24 Hours: Intake & Output 05/08/22 05/09/22 05/10/22 05/11/22 23:59 23:59 23:59 23:59 Intake Total 120 / 120 786.74 / 786.74 2875 / 3544 1176 / 1176 Output Total 0 / 0 700 / 700 425 / 425 425 / 425 Balance 120 / 120 86.74 / 86.74 2450 / 3119 751 / 751 Weight 117 lb 7 oz 116 lb 9 oz 119 lb 0.794 oz 124 lb 1 oz Head: Present normocephalic and atraumatic Eyes: Present as per HPI ENT: Present normal exam Neck: Present normal inspection, full ROM and trachea midline; Absent lymphadenopathy Respiratory: Present normal respiratory effort, able to speak in complete sentences and symmetric chest movement; Absent accessory muscle use Cardiac: Present Reg Rate and Rhythm GI: Present soft; Absent tenderness Comment:: Upon examination of the right shoulder: Dressings present over the right shoulder are clean, dry, intact. No evidence of drainage or bleeding noted. There is a sling in place. Attempted movements of the right shoulder are painful. Range of motion of the elbow, wrist, and fingers is full and nonpainful. Radial pulse 2+; capillary refill is brisk. Sensation light touch is grossly intact throughout; the axillary nerve is intact and deltoid appears to be evelia well. Upon examination of the right hip: Dressings present over the right hip are clean, dry, intact. No evidence of drainage or bleeding noted. Attempted movements of the right hip are painful. Thigh and calf are soft nontender; Homans' sign is negative. No clinical evidence of DVT or compartment syndrome noted. Posterior tibial pulses 1+; cap refill is brisk. Sensation light touch is grossly intact throughout. Patient is actively mobilizing the foot, ankle, and toes. Diagnostic imaging: X-ray performed at [facility] on 05/10/2022 reviewed along with radiologist report. Postoperative x-ray of the right hip demonstrates a right hip hemiarthroplasty with orthopedic components in satisfactory alignment and fixation. No evidence of orthopedic complications noted. Radiologist report is as follows: FINDINGS: Tubes, catheters and devices: Surgical verónica noted Bones/joints: Bilateral hip arthroplasties. No hardware-related complication noted. Soft tissues: Moderate overlying soft tissue swelling and subcutaneous gas in keeping with recent surgery along the right hip. IMPRESSION: Postoperative changes related to recent right hip arthroplasty. Skin: Present intact, warm and normal turgor; Absent cyanosis, erythema, lesions or jaundice Neuro: Present Cranial Nerve 2-12 Intact, Motor Function Intact, Sensory Function Intact, alert, awake, oriented x 3, tone normal and moves all extremities; Ab
--- NOTE | 2022-05-11 09:34 | EXP.ANES.II ---
[facility] Anesthesia Record Part II Anesthesia Record Part II Discharge Time: 16:30 Destination: Medical Surgical Department PACU nurse assessment reviewed?: Yes Patient Condition:: Good Anesthesia Complications:: None Swallowing reflex intact?: Yes Cyanosis?: No Blood Pressure: 128/63 Pulse Rate: 72 Temperature: 97.3 F Mental Status: Alert & Oriented Pain level:: 0 Nausea and/or vomitting:: None Intake, IV Amount: 0
--- NOTE | 2022-05-11 11:28 | HMH.OTEV ---
OT Inpatient Evaluation Rehab OT IP Evaluation Start: 05/11/22 07:33 Freq: ONCE Status: Complete Protocol: Document 05/11/22 11:15 MELISSAALLEY (Rec: 05/11/22 11:28 VANESA [id number]) Rehab OT IP Assessment Subjective History Date of procedure: 05/10/22 Pre-op Diagnosis:: 1. Right displaced femoral neck fracture #2 right proximal humerus fracture closed comminuted. Clinical Note:: This 87-year-old female who suffered a ground-level fall resulting in a right displaced femoral neck fracture and right comminuted fracture of the proximal humerus. She had had a similar injury in the past on her left side which resulted in hemiarthroplasty of left hip and open reduction internal fixation of the proximal humerus on the left. Patient lives at home alone in 1 story home with 2-3 AAKASH. Patient completed all ADLs, housework and yard work independently. Patient continues to drive. Subjective I don't think I can get up. Instructed Patient on proper hand and foot placement to complete supine->sit @ EOB requiring TD x3. Patient demonstrated poor- sitting balance. Patient required Max A to keep head in neutral at EOB. Patient is not safe and unable to stand at this time. Objective Patient Orientation Person,Place,Name,Year Bed Mobility bed mobility - supine/sit Assist Level Total/Dependent (100%) Transfer Training Sit/Stand Transfer Assist Level Total/Dependent (100%) Rehab OT IP prob,goals,plan Problems Date of Evaluation: 05/11/22 OT IP Problems Bed Mobility,Transfers,Gait, Balance,Self care,Safety Rehab Potential Rehab Potential Good Equipment Needs Assistive Devices None / NA Plan OT intervention Plan Bed Mobility,Transfers,Gait,
--- NOTE | 2022-05-11 11:34 | HMH.PTEV ---
Physical Therapy Evaluation Rehab PT IP Evaluation Start: 05/10/22 17:25 Freq: ONCE Status: Active Protocol: Document 05/11/22 11:26 PHORNE (Rec: 05/11/22 11:34 PHORNE [id number]) Subjective/History History History 87 yowf adm to [facility] after ground level fall at home with resulting R hip fx and R prox humerus fx. She is now S/P R hip hemiarthroplasty and R prox humerus ORIF. She reports she lives alone and walks with a cane at baseline. Subjective Subjective Pt c/o significant pain in R UE and LE prior to treatment this am. Somehat lethargic in appearance. Rehab PT IP Eval Objective Appearance Patient Behavior Appropriate Patient Orientation Person,Place Difficulty following instructions none Speech Pattern Clear,Soft-Spoken Ambulation Patient Able to Ambulate No Balance Ability to Arise Unable Sitting Balance Leans or slides in chair Standing Balance Unsteady Dynamic Sitting Balance Ability Poor Dynamic Standing Balance Ability Poor Transfers Bed Transfer Ability Maximum x 1 (75% assist) Chair Transfer Ability Maximum x 2 (75% assist) Sit to Stand Bed Transfer Ability Maximum x 2 (75% assist) Sit to Stand Chair Transfer Ability Maximum x 2 (75% assist) ROM RUE PT ROM Status ABN Abnormal ROM Comment sling in place Rehab PT IP prob,goals,plan Problems Date of Evaluation: 05/11/22 PT IP Problems Bed Mobility,Transfers,Gait, Balance,Self care Rehab Potential Rehab Potential Good Plan PT Intervention Plan Bed Mobility,Transfers,Gait, Balance,Self care,Therapeutic Exercise PT Plan Frequency BID Duration LOS Discharge Goals Bed Transfer Ability Moderate x 2 (50% assist) Sit to Stand Chair Transfer Ability Moderate x 2 (50% assist) Ambulation Distance (feet) 3 Discharge Plan PT Discharge Plan Pt is currently most appropriate for rehab placement once medically stable. G -code Required No Eval Complexity Eval Charge Codes 53505 - High Complexity PHYSICIAN CERTIFICATION: I certify the specified therapy services for Emy Imelda Feeback are required, auth
[2022-05-11 13:03] LABS: Basophils % 0.1 % (0.1-2.0); Eosinophils # 0.1 K/mm3 (0.0-0.4); Eosinophils % 0.5 % (0.1-12.0); Hematocrit 22.6 % (37.0-47.0); Hemoglobin 7.3 g/dL (12.2-16.2); Lymphocytes # 0.8 K/mm3 (0.7-4.5); Lymphocytes % 5.2 % (10-50); Mean Corpuscular HGB Conc 32.4 g/dL (31.8-35.4); Mean Corpuscular Volume 95.7 fl (81-99); Mean Platelet Volume 8.3 fl (7.4-10.4); Monocytes # 0.7 K/mm3 (0.1-1.0); Monocytes % 4.9 % (1.7-9.3); Neutrophils # 13.4 K/mm3 (1.8-7.8); Neutrophils % 89.4 % (37.0-80.0); Platelet Count 187 K/mm3 (142-424); Red Blood Count 2.36 M/mm3 (4.20-5.40); Red Cell Distribution Width 14.2 % (11.5-17.5); Reticulocyte % (Auto) 3.2 % (0.9-3.2)
[2022-05-11 13:05] LABS: Chloride 96 mmol/L (98-107); Sodium 134 mmol/L (136-145)
[2022-05-11 13:06] LABS: MANUAL DIFFERENTIAL MANUAL DIFFERENTIAL (MANUAL DIFF)
[2022-05-11 13:08] LABS: Alanine Aminotransferase 24 U/L (12-78); Albumin Level 2.6 g/dl (3.5-5.0); Albumin/Globulin Ratio 1.1 (1.1-1.8); Alkaline Phosphatase 59 U/L (38-126); Aspartate Amino Transferase 43 U/L (14-36); Bilirubin,Total 0.8 mg/dl (0.2-1.3); Blood Urea Nitrogen 32 mg/dl (7-17); Carbon Dioxide 27 mmol/L (22.0-30.0); Creatinine Clearance Estimated 35 mL/min (50-200); Estimated Glomerular Filt Rate 79 ml/min (>60); GFR (African American) 96 ML/MIN (>60); Globulin 2.4 g/dL (1.3-3.2)
[2022-05-11 13:09] LABS: Glucose 164 mg/dl (74-100)
[2022-05-11 13:25] LABS: Lymphocytes % 11 % (10-50); Monocytes % 2 % (2-9); Neutrophils % 87 % (42-76); Platelet Estimate Normal; RBC Morphology Normal; Total Cells Counted 100
--- NOTE | 2022-05-11 16:45 | CARE MANAGER ---
Addendum entered by Kae Bonilla RN 05/12/22 15:48: Spoke with Pam again today. Patient is planned for discharge on , 05/13 to [facility]. Patient is planned to transport via EMS. Covid swab has been ordered for the am, please fax results with dc summary. [facility] has been informed that CM office will be closed and to contact Med/Surg with any issues or needs. Original Note: Spoke with Pam today, patient's niece. She has requested that patient be sent to [facility] or [place] for rehab once medically ready for discharge. Patient has a bed at [facility] tomorrow, but if not medically ready, she can discharge on .
--- NOTE | 2022-05-11 18:44 | EXP.ACUTE.PN ---
Subjective *Date: 05/11/22 *Time: 09:00 Interval history: Lethargic on interview today. Tired from postoperative state and anesthesia. Discussion with visitors and they feel that she is more pale and not quite to baseline regarding mentation. Further history unable to be obtained. Medical Exam Vital signs and Labs for Last 24 Hours: Vital Signs Temp Pulse Pulse Resp BP BP Pulse Ox 05/11/22 16:00 98.7 F 81 15 137/66 94 L 05/11/22 12:00 98.6 F 83 16 117/55 L 96 05/11/22 08:00 90 L 05/11/22 08:00 97.8 F 91 H 16 127/63 90 L 05/11/22 04:00 98.4 F 91 H 16 120/51 L 94 L 05/10/22 23:30 97.9 F 80 16 113/55 L 94 L 05/10/22 22:30 97.5 F L 84 18 114/52 L 91 L 05/10/22 21:30 97.8 F 78 16 125/56 L 94 L 05/10/22 20:30 97.6 F 73 18 127/56 L 93 L 05/10/22 19:30 97.5 F L 75 22 101/47 L 97 05/10/22 19:00 97.8 F 73 20 118/57 L 96 05/10/22 18:45 97.7 F 71 16 114/60 94 L 05/11/22 09:35 97.3 F L 72 128/63 Intake and Output 05/11/22 05/11/22 05/11/22 07:59 15:59 23:59 Intake Total 936 / 1919 360 / 1919 623 / 1919 Output Total 425 / 425 Balance 511 / 1494 360 / 1494 623 / 1494 Intake: Intake, Oral Amount 360 / 600 240 / 600 Intake, Total IV Amount 936 / 1319 0 / 1319 383 / 1319 0.9 % Sodium Chloride 1,000 ml 936 / 1319 383 / 1319 @ 75 mls/hr IV .[id number] [facility] Rx# :[id number] Output: Output, Urine Amount 425 / 425 Other: Number of Unmeasured Voids 0 Weight 56.274 kg Patient Weight 05/11/22 23:59 Weight 56.274 kg Laboratory Results - last 24 hr 05/10/22 06:44: POC Glucose 112 H 05/11/22 12:41: WBC 15.0 H D, RBC 2.36 L, Hgb 7.3 L, Hct 22.6 L, MCV 95.7, MCH 31.0, MCHC 32.4, RDW 14.2, Plt Count 187, MPV 8.3, Neut % (Auto) 89.4 H, Lymph % (Auto) 5.2 L, [place] % (Auto) 4.9, Eos % (Auto) 0.5, Baso % (Auto) 0.1, Neut # (Auto) 13.4 H, Lymph # (Auto) 0.8, [place] # (Auto) 0.7, Eos # (Auto) 0.1, Baso # (Auto) 0.0, Total Counted 100, Neutrophils % (Manual) 87 H, Lymphocytes % (Manual) 11, Monocytes % (Manual) 2, Platelet Estimate Normal, RBC Morphology Normal, Retic Count (auto) 3.2 05/11/22 12:41: Sodium 134 L, Potassium 4.0 D, Chloride 96 L, Carbon Dioxide 27, Anion Gap 15.0, BUN 32 H D, Creatinine 0.70, Estimated Creat Clear 35, Estimated GFR 79, Est GFR ( Amer) 96, Glucose 164 H, Calcium 8.0 L, Total Bilirubin 0.8, AST 43 H, ALT 24 D, Alkaline Phosphatase 59, Total Protein 5.0 L, Albumin 2.6 L D, Globulin 2.4, Albumin/Globulin Ratio 1.1, TSH 1.30 I & O for Labs for Last 24 Hours: Intake & Output 05/08/22 05/09/22 05/10/22 05/11/22 23:59 23:59 23:59 23:59 Intake Total 120 / 120 786.74 / 786.74 2875 / 3544 191 / 191 Output Total 0 / 0 700 / 700 425 / 425 425 / 425 Balance 120 / 120 86.74 / 86.74 2450 / 3119 1494 / 1494 Weight 53.269 kg 52.872 kg 54 kg 56.274 kg Head: Present normal inspection Neck: Present normal inspection Respiratory: Present CTA bilaterally; Absent accessory muscle use Cardiac: Present Reg Rate and Rhythm and S1/S2 GI: Present soft Rectal (female): Present deferred (female): Present deferred Extremities: Present normal inspection Skin: Present intact and pallor Additional Findings:: Lethargic Assessment and Plan *Assessment and plan (1) Fall: Status: Acute Category: Medical Code(s): W19.XXXA - Unspecified fall, initial encounter (2) Hip fracture: Status: Acute Qualifiers: Encounter type: subsequent encounter Fracture healing: with routine healing Fracture type: closed Laterality: right Qualified Code(s): S72.001D - Fracture of unspecified part of neck of right femur, subsequent encounter for closed fracture with routine healing Category: Medical Code(s): S72.009A - Fracture of unspecified part of neck of unspecified femur, initial encounter for closed fracture (3) Humeral surgical neck fracture: Sta
[2022-05-12] VITALS (16 sets, daily range): BP systolic 130–192; BP diastolic 64–98; PULSE 84–90; RESP 16–18; TEMP 36.5–36.9; O2SAT 92–98; BMI 22.0
[2022-05-12 04:53] LABS: Basophils % 0.1 % (0.1-2.0); Eosinophils # 0.1 K/mm3 (0.0-0.4); Eosinophils % 0.5 % (0.1-12.0); Lymphocytes # 0.9 K/mm3 (0.7-4.5); Lymphocytes % 4.9 % (10-50); Mean Corpuscular HGB Conc 33.8 g/dL (31.8-35.4); Mean Corpuscular Hemoglobin 30.8 pg (27.0-31.2); Mean Corpuscular Volume 91.3 fl (81-99); Mean Platelet Volume 8.2 fl (7.4-10.4); Monocytes # 0.6 K/mm3 (0.1-1.0); Monocytes % 3.7 % (1.7-9.3); Neutrophils # 15.8 K/mm3 (1.8-7.8); Neutrophils % 90.8 % (37.0-80.0); Platelet Count 170 K/mm3 (142-424); Red Blood Count 3.51 M/mm3 (4.20-5.40); Red Cell Distribution Width 15.1 % (11.5-17.5); White Blood Count 17.4 K/mm3 (4.8-10.8)
[2022-05-12 04:56] LABS: Chloride 99 mmol/L (98-107); Potassium 3.9 mmoL/L (3.5-5.1); Sodium 128 mmol/L (136-145)
[2022-05-12 04:59] LABS: Alanine Aminotransferase 23 U/L (12-78); Albumin Level 2.7 g/dl (3.5-5.0); Alkaline Phosphatase 72 U/L (38-126); Anion Gap 4.9 mEq/L (5-15); Aspartate Amino Transferase 35 U/L (14-36); Bilirubin,Total 1.9 mg/dl (0.2-1.3); Blood Urea Nitrogen 31 mg/dl (7-17); Calcium 8.1 mg/dl (8.4-10.2); Carbon Dioxide 28 mmol/L (22.0-30.0); Creatinine Clearance Estimated 35 mL/min (50-200); Estimated Glomerular Filt Rate 68 ml/min (>60); GFR (African American) 82 ML/MIN (>60); Globulin 2.7 g/dL (1.3-3.2); Glucose 137 mg/dl (74-100); Magnesium 1.7 mg/dl (1.6-2.3); Phosphorous 2.1 mg/dl (2.5-4.5); Total Protein,Serum 5.4 g/dl (6.3-8.2)
[2022-05-12 05:00] LABS: MANUAL DIFFERENTIAL MANUAL DIFFERENTIAL (MANUAL DIFF)
[2022-05-12 05:09] LABS: Hemoglobin 10.9 g/dL (12.2-16.2)
--- NOTE | 2022-05-12 05:26 | PC.NURSE ---
pt has rested t/o most of shift, has complained of pain one time and was treated per AUG, dressing in place to right hip and right arm, C/D/I, 2 units of blood transfused this shift, no s/s of transfusion reaction, remains on room air with no complaints of SOA, O2 sats 92-95%, franks remains in place
[2022-05-12 05:57] LABS: Lymphocytes % 7 % (10-50); Monocytes % 1 % (2-9); Neutrophils % 92 % (42-76); Total Cells Counted 100
[2022-05-12 05:59] LABS: Acanthocytes 1+
[2022-05-12 06:55] LABS: Platelet Estimate Normal
--- NOTE | 2022-05-12 12:04 | EXP.ORTH.PN ---
Subjective *Date: 05/12/22 *Time: 12:04 Interval history: Patient sitting up in the chair today. Reports pain in the shoulder and the hip are significant but slightly improved. Difficulty with walking secondary to right-sided hip fracture and right proximal humerus fracture. Pain is controlled with medications. Ortho Exam (Inpt) Vital signs and Labs for Last 24 Hours: Temp Pulse Resp BP Pulse Ox 97.9 F 89 16 154/73 H 93 L 05/12/22 08:00 05/12/22 08:00 05/12/22 08:00 05/12/22 08:00 05/12/22 08:00 Laboratory Results - last 24 hr 05/09/22 08:13: Blood Type O Positive, Antibody Screen TNP, Crossmatch (AHG) See Detail 05/11/22 12:41: WBC 15.0 H D, RBC 2.36 L, Hgb 7.3 L, Hct 22.6 L, MCV 95.7, MCH 31.0, MCHC 32.4, RDW 14.2, Plt Count 187, MPV 8.3, Neut % (Auto) 89.4 H, Lymph % (Auto) 5.2 L, [place] % (Auto) 4.9, Eos % (Auto) 0.5, Baso % (Auto) 0.1, Neut # (Auto) 13.4 H, Lymph # (Auto) 0.8, [place] # (Auto) 0.7, Eos # (Auto) 0.1, Baso # (Auto) 0.0, Total Counted 100, Neutrophils % (Manual) 87 H, Lymphocytes % (Manual) 11, Monocytes % (Manual) 2, Platelet Estimate Normal, RBC Morphology Normal, Retic Count (auto) 3.2 05/11/22 12:41: Sodium 134 L, Potassium 4.0 D, Chloride 96 L, Carbon Dioxide 27, Anion Gap 15.0, BUN 32 H D, Creatinine 0.70, Estimated Creat Clear 35, Estimated GFR 79, Est GFR ( Amer) 96, Glucose 164 H, Calcium 8.0 L, Total Bilirubin 0.8, AST 43 H, ALT 24 D, Alkaline Phosphatase 59, Total Protein 5.0 L, Albumin 2.6 L D, Globulin 2.4, Albumin/Globulin Ratio 1.1, TSH 1.30 05/11/22 19:27: Blood Type O Positive, Antibody Screen Negative, Crossmatch (AHG) See Detail 05/12/22 04:40: WBC 17.4 H, RBC 3.51 L D, Hgb 10.9 L D, Hct 32.0 L, MCV 91.3, MCH 30.8, MCHC 33.8, RDW 15.1, Plt Count 170, MPV 8.2, Neut % (Auto) 90.8 H, Lymph % (Auto) 4.9 L, [place] % (Auto) 3.7, Eos % (Auto) 0.5, Baso % (Auto) 0.1, Neut # (Auto) 15.8 H, Lymph # (Auto) 0.9, [place] # (Auto) 0.6, Eos # (Auto) 0.1, Baso # (Auto) 0.0, Total Counted 100, Neutrophils % (Manual) 92 H, Lymphocytes % (Manual) 7 L, Monocytes % (Manual) 1 L, Platelet Estimate Normal, RBC Morphology Not Reportable, Acanthocytes (Spur) 1+ 05/12/22 04:40: Sodium 128 L, Potassium 3.9, Chloride 99, Carbon Dioxide 28, Anion Gap 4.9 L, BUN 31 H, Creatinine 0.80, Estimated Creat Clear 35, Estimated GFR 68, Est GFR ( Amer) 82, Glucose 137 H, Calcium 8.1 L, Phosphorus 2.1 L, Magnesium 1.7, Total Bilirubin 1.9 H, AST 35, ALT 23, Alkaline Phosphatase 72, Total Protein 5.4 L, Albumin 2.7 L, Globulin 2.7, Albumin/Globulin Ratio 1.0 L I & O for Labs for Last 24 Hours: Intake & Output 05/09/22 05/10/22 05/11/22 05/12/22 23:59 23:59 23:59 23:59 Intake Total 786.74 / 786.74 2875 / 3544 1919 / 1919 1410 / 1410 Output Total 700 / 700 425 / 425 425 / 425 200 / 200 Balance 86.74 / 86.74 2450 / 3119 1494 / 1494 1210 / 1210 Weight 116 lb 9 oz 119 lb 0.794 oz 124 lb 1 oz 129 lb 3 oz Comment:: Right shoulder: Surgical dressing in tact. Bruising and swelling around the elbow present. Mild pain with passive range of motion. Slings intact. Additional findings:: Right hip: Surgical dressings in place. Able to plantarflex and dorsiflex foot without difficulty. Bends knee without difficulty. Mild groin and lateral pain with rotation. Assessment and Plan *Assessment and plan (1) Fall: Status: Acute Category: Medical Code(s): W19.XXXA - Unspecified fall, initial encounter (2) Hip fracture: Status: Acute Qualifiers: Encounter type: subsequent encounter Fracture healing: with routine healing Fracture type: closed Laterality: right Qualified Code(s): S72.001D - Fracture of unspecified part of neck of right femur, subsequent encounter for closed fracture with routine healing Category: Medical Code(s): S72.009A - Fracture of unspecified part of neck of unspecified femur, initial encounter for closed fracture (3) Humeral surgical neck fracture: Status
--- NOTE | 2022-05-12 12:41 | DIET.NUTRFU ---
RD continued to have poor po intake, patient reports she does not feel like eating. She has her arm in sling, staff is assisting with meals. RD added supplements to meals for additional calorie/protein to help meet needs. She plans to go to rehab after this, they will help with meals
[2022-05-12 14:35] LABS: Microscopic, Urine URINE MICROSCOPIC (MICROSCOPIC)
[2022-05-12 14:40] LABS: Appearance,Urine CLEAR (Clear); Blood, Urine 2+ (Negative); Color,Urine AMBER (Yellow); Glucose,Urine (UA) Negative (Negative); Ketones,Urine Negative (Negative); Leukocyte Esterase,Urine TRACE (Negative); Nitrate,Urine POSITIVE (Negative); Protein,Urine 2+ (Negative); Specific Gravity, Urine 1.025 (1.005-1.030)
[2022-05-12 14:44] LABS: Hematocrit 30.8 % (37.0-47.0); Hemoglobin 10.1 g/dL (12.2-16.2)
[2022-05-12 14:47] LABS: Bilirubin,Urine 1+ (Negative)
[2022-05-12 14:51] LABS: Occult Blood,Stool Positive (Negative)
[2022-05-12 15:04] LABS: Bacteria,Urine Trace /lpf
[2022-05-12 15:08] LABS: INR 1.15 (0.9-1.1); Prothrombin Time 12.3 seconds (10.1-12.5)
--- NOTE | 2022-05-12 15:08 | PC.NURSE ---
Notified Dr. Nadine Castellanos of positive occult stool at this time. Pt has been up to chair this shift and had several bm's this shift. Pt alert and oriented. VSS. Cath care given and franks removed. Sling continues to be in use to R arm. Dsg in place to r arm and r hip.
--- NOTE | 2022-05-12 16:43 | EXP.ACUTE.PN ---
Subjective *Date: 05/12/22 *Time: 17:16 Interval history: Overnight no acute issues. Discussed plan and answer question fully. No concerns or complaints at this time Medical Exam Vital signs and Labs for Last 24 Hours: Vital Signs Temp Pulse Pulse Resp BP BP Pulse Ox 05/12/22 16:00 98.0 F 85 16 192/74 H 95 05/12/22 08:00 97.9 F 89 16 154/73 H 93 L 05/12/22 04:35 98.0 F 87 17 138/71 95 05/12/22 03:35 97.7 F 88 16 143/75 H 95 05/12/22 02:55 98.0 F 89 16 145/74 H 93 L 05/12/22 01:55 97.9 F 88 16 130/71 94 L 05/12/22 01:40 98.0 F 87 16 131/64 92 L 05/11/22 20:00 94 L 05/12/22 01:25 97.8 F 86 16 143/77 H 95 05/12/22 01:10 97.8 F 87 16 168/77 H 94 L 05/12/22 01:05 97.7 F 88 17 169/72 H 94 L 05/12/22 01:00 98.2 F 90 17 160/84 H 94 L 05/12/22 00:55 97.9 F 89 18 156/72 H 94 L 05/12/22 00:40 98.4 F 84 18 131/74 97 05/12/22 00:15 98.4 F 90 16 133/68 96 05/11/22 23:45 98.5 F 90 16 136/57 L 95 05/11/22 22:45 98.3 F 89 16 137/58 L 93 L 05/11/22 22:30 98.2 F 88 16 137/60 95 05/11/22 22:15 97.8 F 88 16 136/58 L 93 L 05/11/22 22:00 97.7 F 88 16 132/56 L 94 L 05/11/22 21:55 97.6 F 87 16 125/59 L 93 L 05/11/22 21:50 97.7 F 87 16 120/62 94 L 05/11/22 21:45 97.7 F 87 17 129/51 L 94 L 05/11/22 21:25 97.7 F 88 16 132/53 L 94 L 05/11/22 20:00 98.4 F 85 18 136/64 94 L Intake and Output 05/12/22 05/12/22 05/12/22 07:59 15:59 23:59 Intake Total 1050 / 2465 1415 / 2465 Output Total 200 / 500 300 / 500 Balance / 1965 1114 / 1964 Intake: Intake, Oral Amount 840 / 840 Intake, Total IV Amount 550 / 1125 575 / 1125 0.9 % Sodium Chloride 1,000 ml 550 / 875 325 / 875 @ 75 mls/hr IV .[id number] [facility] Rx# :[id number] Potassium Phosphate 9 mmol In 0 250 / 250 .9 % Sodium Chloride 250 ml @ 63.25 mls/hr IV ONCE ONE Rx#: [id number] Intake (Blood Product) Amt 500 / 500 Red Blood Cells Unit 250 / 250 [id number] Red Blood Cells Unit 250 / 250 [id number] Output: Output, Urine Amount 200 / 500 300 / 500 Other: Number of Unmeasured Voids 0 Weight 58.598 kg Patient Weight 05/12/22 23:59 Weight 58.598 kg Laboratory Results - last 24 hr 05/09/22 08:13: Blood Type O Positive, Antibody Screen TNP, Crossmatch (AHG) See Detail 05/11/22 19:27: Blood Type O Positive, Antibody Screen Negative, Crossmatch (AHG) See Detail 05/12/22 04:40: WBC 17.4 H, RBC 3.51 L D, Hgb 10.9 L D, Hct 32.0 L, MCV 91.3, MCH 30.8, MCHC 33.8, RDW 15.1, Plt Count 170, MPV 8.2, Neut % (Auto) 90.8 H, Lymph % (Auto) 4.9 L, [place] % (Auto) 3.7, Eos % (Auto) 0.5, Baso % (Auto) 0.1, Neut # (Auto) 15.8 H, Lymph # (Auto) 0.9, [place] # (Auto) 0.6, Eos # (Auto) 0.1, Baso # (Auto) 0.0, Total Counted 100, Neutrophils % (Manual) 92 H, Lymphocytes % (Manual) 7 L, Monocytes % (Manual) 1 L, Platelet Estimate Normal, RBC Morphology Not Reportable, Acanthocytes (Spur) 1+ 05/12/22 04:40: Sodium 128 L, Potassium 3.9, Chloride 99, Carbon Dioxide 28, Anion Gap 4.9 L, BUN 31 H, Creatinine 0.80, Estimated Creat Clear 35, Estimated GFR 68, Est GFR ( Amer) 82, Glucose 137 H, Calcium 8.1 L, Phosphorus 2.1 L, Magnesium 1.7, Total Bilirubin 1.9 H, AST 35, ALT 23, Alkaline Phosphatase 72, Total Protein 5.4 L, Albumin 2.7 L, Globulin 2.7, Albumin/Globulin Ratio 1.0 L 05/12/22 09:45: Urine Color [place], Urine Appearance Clear, Urine pH 6.0, Ur Specific [place] 1.025, Urine Protein 2+, Urine Glucose (UA) Negative, Urine Ketones Negative, Urine Blood 2+, Urine Nitrate Positive, Urine Bilirubin 1+ A, Urine Urobilinogen 1.0, Ur Leukocyte Esterase Trace, Urine RBC 5-10, Urine WBC 3-5, Ur Squamous Epith Cells 3-5, Urine Bacteria Trace 05/12/22 11:42: Stool Occult Blood Positive A 05/12/22 14:25: Hgb 10.1 L, Hct 30.8 L 05/12/22 14:25: P
--- NOTE | 2022-05-12 21:56 | PC.NURSE ---
Pt left leg noticeably pale and cold to touch compared to right. Unable to palpate a pulse but was able to hear pulse with doppler. Cap refill <2. Right leg is warm to touch and swollen. Strong pulse palpated. Cap refill <2. Pt states sensations feel normal and feel the same in both legs. Pt states she is not having any pain in legs. Pt is able to move both feet and wiggle toes. Lesia/hospitalist made aware of change in assessment.
--- NOTE | 2022-05-13 01:23 | PC.NURSE ---
Pt left leg now feels warm and is pinker compared to start of shift. Pulse continues to not be palpable but is found with doppler. Pt has c/o pain 2x thus far and has been treated per MAR. Pt has had 1 unmeasured void since removing catheter and has had 2 BMs thus far. Pt report given to Rachel Hernandez to assume care.
[2022-05-13 04:00] VITALS: BP 153/68; PULSE 76; RESP 20; TEMP 36.5; O2SAT 98
--- NOTE | 2022-05-13 04:28 | PC.NURSE ---
pt has rested well. pt easily awakened by verbal stimuli and is alert and oriented, pain controlled at this time, lungs remain clear, and heart regular, left pedal pulse noted with doppler, left leg more pink at this time and capillary refill less than 3 sec, right pedal pulse easily palpated and capillary refill less than 3 sec, right leg redness continues, drsg intact to right hip and right upper, call light within reach at this time.
[2022-05-13 05:00] VITALS: BMI 22.8
[2022-05-13 08:00] VITALS: BP 151/75; PULSE 79; RESP 18; TEMP 36.6; O2SAT 97
[2022-05-13 11:11] LABS: Eosinophils # 0.1 K/mm3 (0.0-0.4); Eosinophils % 0.7 % (0.1-12.0); Hematocrit 29.5 % (37.0-47.0); Hemoglobin 9.7 g/dL (12.2-16.2); Lymphocytes % 6.4 % (10-50); Mean Corpuscular Hemoglobin 30.4 pg (27.0-31.2); Mean Corpuscular Volume 92.2 fl (81-99); Mean Platelet Volume 7.8 fl (7.4-10.4); Monocytes # 0.5 K/mm3 (0.1-1.0); Monocytes % 3.5 % (1.7-9.3); Neutrophils # 13.3 K/mm3 (1.8-7.8); Neutrophils % 89.4 % (37.0-80.0); Platelet Count 199 K/mm3 (142-424); Red Cell Distribution Width 15.1 % (11.5-17.5); White Blood Count 14.9 K/mm3 (4.8-10.8)
[2022-05-13 11:14] LABS: MANUAL DIFFERENTIAL MANUAL DIFFERENTIAL (MANUAL DIFF)
[2022-05-13 11:22] LABS: Chloride 99 mmol/L (98-107); Sodium 129 mmol/L (136-145)
[2022-05-13 11:24] LABS: Blood Urea Nitrogen 24 mg/dl (7-17); Creatinine Clearance Estimated 37 mL/min (50-200); Estimated Glomerular Filt Rate 116 ml/min (>60); GFR (African American) 141 ML/MIN (>60)
[2022-05-13 11:25] LABS: Alanine Aminotransferase 21 U/L (12-78); Albumin Level 2.5 g/dl (3.5-5.0); Albumin/Globulin Ratio 0.9 (1.1-1.8); Alkaline Phosphatase 79 U/L (38-126); Aspartate Amino Transferase 31 U/L (14-36); Bilirubin,Total 0.9 mg/dl (0.2-1.3); Calcium 7.8 mg/dl (8.4-10.2); Carbon Dioxide 28 mmol/L (22.0-30.0); Globulin 2.7 g/dL (1.3-3.2); Glucose 151 mg/dl (74-100); Total Protein,Serum 5.2 g/dl (6.3-8.2)
[2022-05-13 11:28] LABS: Magnesium 1.7 mg/dl (1.6-2.3)
[2022-05-13 11:29] LABS: Lymphocytes % 13 % (10-50); Neutrophils % 86 % (42-76); Phosphorous 1.7 mg/dl (2.5-4.5); Platelet Estimate Normal; RBC Morphology Normal; Total Cells Counted 100
--- NOTE | 2022-05-13 11:31 | PC.NURSE ---
1125- Spoke to Christen Gutierrez at [place]. Admission to facility on standby at this time. Facility is having issues w/ their pharmacy and getting this patients medications. Will relay message to Care Management and to MD Castellanos
--- NOTE | 2022-05-13 11:49 | PC.NURSE ---
1126- Spoke to Kerrie in lab regarding critical Phosphorus of 1.7. Verified name, and room number. 1148- Spoke to MD Conrado Castellanos regarding critical lab value, NNO
--- NOTE | 2022-05-13 12:49 | EXP.ACUTE.PN ---
Subjective *Date: 05/13/22 *Time: 12:49 Interval history: No issues overnight. Feels much better this morning. In bed eating. Ready to go home tomorrow once the facility will take her. Medical Exam Vital signs and Labs for Last 24 Hours: Vital Signs Temp Pulse Resp BP Pulse Ox 05/13/22 08:00 97 05/13/22 08:00 97.9 F 79 18 151/75 H 97 05/13/22 04:00 97.7 F 76 20 153/68 H 98 05/12/22 20:00 97.9 F 87 16 157/74 H 98 05/12/22 16:59 156/98 H 05/12/22 16:00 98.0 F 85 16 192/74 H 95 Intake and Output 05/12/22 05/13/22 05/13/22 23:59 07:59 15:59 Intake Total 240 / 2765 854 / 1334 480 / 1334 Output Total 0 / 500 Balance 240 / 2265 854 / 1334 480 / 1334 Intake: Intake, Oral Amount 240 / 1140 60 / 540 480 / 540 Intake, Total IV Amount 794 / 794 0.9 % Sodium Chloride 1,000 ml 794 / 794 @ 75 mls/hr IV .[id number] [facility] Rx# :[id number] Output: Output, Urine Amount 0 / 500 Other: Number of Unmeasured Voids 1 1 Number of Bowel Movements 1 Weight 60.583 kg Patient Weight 05/13/22 23:59 Weight 60.583 kg Laboratory Results - last 24 hr 05/12/22 09:45: Urine Color [place], Urine Appearance Clear, Urine pH 6.0, Ur Specific [place] 1.025, Urine Protein 2+, Urine Glucose (UA) Negative, Urine Ketones Negative, Urine Blood 2+, Urine Nitrate Positive, Urine Bilirubin 1+ A, Urine Urobilinogen 1.0, Ur Leukocyte Esterase Trace, Urine RBC 5-10, Urine WBC 3-5, Ur Squamous Epith Cells 3-5, Urine Bacteria Trace 05/12/22 11:42: Stool Occult Blood Positive A 05/12/22 14:25: Hgb 10.1 L, Hct 30.8 L 05/12/22 14:25: PT 12.3, INR 1.15 H 05/13/22 11:02: WBC 14.9 H, RBC 3.20 L, Hgb 9.7 L, Hct 29.5 L, MCV 92.2, MCH 30.4, MCHC 33.0, RDW 15.1, Plt Count 199, MPV 7.8, Neut % (Auto) 89.4 H, Lymph % (Auto) 6.4 L, [place] % (Auto) 3.5, Eos % (Auto) 0.7, Baso % (Auto) 0.0 L, Neut # (Auto) 13.3 H, Lymph # (Auto) 1.0, [place] # (Auto) 0.5, Eos # (Auto) 0.1, Baso # (Auto) 0.0, Total Counted 100, Neutrophils % (Manual) 86 H, Band Neutrophils % 1.0, Lymphocytes % (Manual) 13, Platelet Estimate Normal, RBC Morphology Normal 05/13/22 11:02: Sodium 129 L, Potassium 4.0, Chloride 99, Carbon Dioxide 28, Anion Gap 6.0, BUN 24 H, Creatinine 0.50 L D, Estimated Creat Clear 37, Estimated GFR 116, Est GFR ( Amer) 141 D, Glucose 151 H, Calcium 7.8 L, Phosphorus 1.7 L, Total Bilirubin 0.9, AST 31, ALT 21, Alkaline Phosphatase 79, Total Protein 5.2 L, Albumin 2.5 L, Globulin 2.7, Albumin/Globulin Ratio 0.9 L 05/13/22 11:02: Magnesium 1.7 I & O for Labs for Last 24 Hours: Intake & Output 05/10/22 05/11/22 05/12/22 05/13/22 23:59 23:59 23:59 23:59 Intake Total 2875 / 3544 1919 / 1919 2705 / 2765 1334 / 1334 Output Total 425 / 425 425 / 425 500 / 500 Balance 2450 / 3119 1494 / 1494 2205 / 2265 1334 / 1334 Weight 54 kg 56.274 kg 58.598 kg 60.583 kg Constitutional: Present no acute distress Respiratory: Present normal respiratory effort Cardiac: Present Reg Rate and Rhythm GI: Present normal bowel sounds; Absent tenderness Extremities: Present normal inspection and full ROM Comment:: Orthopedic fixators in place on arm and leg Skin: Present intact; Absent erythema Neuro: Present Grossly Intact and moves all extremities Assessment and Plan *Assessment and plan (1) Closed right hip fracture: Status: Acute Category: Medical Code(s): S72.001A - Fracture of unspecified part of neck of right femur, initial encounter for closed fracture (2) Closed fracture of proximal end of right humerus: Status: Acute Qualifiers: Encounter type: subsequent encounter Fracture healing: with routine healing Fracture morphology: unspecified fracture morphology Qualified Code(s): S42.201D - Unspecified fracture of upper end of right humerus, subsequent encounter for fracture with routine healing Category: Medical Code(s): S42.201A - Unspecified fracture of upper end
[2022-05-13 16:00] VITALS: BP 178/83; PULSE 80; RESP 16; TEMP 36.8; O2SAT 99
--- NOTE | 2022-05-13 17:05 | PC.NURSE ---
Pt has slept majority of the shift. Pt has c/o rt hip pain x1 this shift, pt medicated per AUG. Pt has been a q2h turn. Purewick remains in place and is collecting clear, dark bharti colored urine. Pt has had x2 incontinent BM's this shift. No other acute changes or complaints.
[2022-05-13 21:15] VITALS: BP 184/87; PULSE 87; RESP 22; TEMP 36.8; O2SAT 97
[2022-05-14 04:00] VITALS: BP 182/84; PULSE 79; RESP 16; TEMP 36.9; O2SAT 99
[2022-05-14 04:47] VITALS: BMI 24.1
--- NOTE | 2022-05-14 05:29 | PC.NURSE ---
pt has c/o hip and shoulder pain this shift and has been medicated per mar. she is a&0X4. she remains on bedrest, and has been turned repositioned in bed t/o the night. purewick in place. urine noted to be clear/bharti. 1 incontinent BM this shift. remains on room air and tolerating well.
[2022-05-14 07:41] LABS: Basophils % 0.1 % (0.1-2.0); Eosinophils # 0.2 K/mm3 (0.0-0.4); Eosinophils % 1.3 % (0.1-12.0); Hematocrit 29.8 % (37.0-47.0); Hemoglobin 9.4 g/dL (12.2-16.2); Lymphocytes # 1.2 K/mm3 (0.7-4.5); Lymphocytes % 9.8 % (10-50); Mean Corpuscular HGB Conc 31.7 g/dL (31.8-35.4); Mean Corpuscular Hemoglobin 29.7 pg (27.0-31.2); Mean Corpuscular Volume 93.7 fl (81-99); Mean Platelet Volume 8.3 fl (7.4-10.4); Monocytes # 0.6 K/mm3 (0.1-1.0); Monocytes % 4.9 % (1.7-9.3); Neutrophils # 10.2 K/mm3 (1.8-7.8); Neutrophils % 83.8 % (37.0-80.0); Platelet Count 217 K/mm3 (142-424); Red Blood Count 3.18 M/mm3 (4.20-5.40); Red Cell Distribution Width 14.8 % (11.5-17.5); White Blood Count 12.2 K/mm3 (4.8-10.8)
[2022-05-14 08:00] VITALS: BP 186/77; PULSE 83; RESP 20; TEMP 36.6; O2SAT 97
[2022-05-14 08:01] LABS: Alanine Aminotransferase 18 U/L (12-78); Albumin Level 2.4 g/dl (3.5-5.0); Albumin/Globulin Ratio 0.9 (1.1-1.8); Alkaline Phosphatase 89 U/L (38-126); Anion Gap 13.5 mEq/L (5-15); Aspartate Amino Transferase 28 U/L (14-36); Bilirubin,Total 0.8 mg/dl (0.2-1.3); Blood Urea Nitrogen 17 mg/dl (7-17); Calcium 7.8 mg/dl (8.4-10.2); Carbon Dioxide 29 mmol/L (22.0-30.0); Chloride 92 mmol/L (98-107); Creatinine Clearance Estimated 39 mL/min (50-200); Estimated Glomerular Filt Rate 151 ml/min (>60); GFR (African American) 182 ML/MIN (>60); Globulin 2.8 g/dL (1.3-3.2); Glucose 104 mg/dl (74-100); Potassium 3.5 mmoL/L (3.5-5.1); Sodium 131 mmol/L (136-145); Total Protein,Serum 5.2 g/dl (6.3-8.2)
[2022-05-14 08:03] LABS: Phosphorous 1.8 mg/dl (2.5-4.5)
--- NOTE | 2022-05-14 13:02 | EXP.DC.SUM ---
General Admission date:: 05/08/22 Discharge date: 05/14/22 HPI HPI HPI: Ms. Rainey is a 87-year-old female with a past medical history that is positive for Chronic Atrial Fibrillation on chronic anticoagulation, CAD, Hypertension, Anemia of Chronic Disease. She presents to [facility] through the ER due to a fall that occurred at her home from ground level that occurred a couple hours prior to presentation. The patient was seen in the ER on admission, her neice Pam was at bedside. The patient reports that she walks with a walker in her home, but walks with a cane to go to her mailbox. She reports that she was walking to her mailbox and lost her balance and fell and hit her right hip. She denies losing consciousness. Neighbors saw her and came to her side and called 911. Work-up revealed Right femoral neck fracture and right proximal humerus fracture. Patient suffered similar injuries a few years ago on the left side had hemiarthroplasty of left hip and ORIF of the proximal humerus. It is noted that she had return to function in regards to walking with a cane independently at home. She reports that the pain in her shoulder is worse today than the pain in her hip. She has been monitored with INR which is decreasing at this point. Admitted to the hospital for definitive treatment of orthopedic injuries. Exam Data for Last 24 hours Vital signs and Labs for Last 24 Hours: Temp Pulse Resp BP Pulse Ox 97.8 F 83 20 186/77 H 97 05/14/22 08:00 05/14/22 08:00 05/14/22 08:00 05/14/22 08:00 05/14/22 08:00 Laboratory Results - last 24 hr 05/09/22 08:13: Crossmatch (AHG) See Detail 05/14/22 07:09: WBC 12.2 H, RBC 3.18 L, Hgb 9.4 L, Hct 29.8 L, MCV 93.7, MCH 29.7, MCHC 31.7 L, RDW 14.8, Plt Count 217, MPV 8.3, Neut % (Auto) 83.8 H, Lymph % (Auto) 9.8 L, [place] % (Auto) 4.9, Eos % (Auto) 1.3, Baso % (Auto) 0.1, Neut # (Auto) 10.2 H, Lymph # (Auto) 1.2, [place] # (Auto) 0.6, Eos # (Auto) 0.2, Baso # (Auto) 0.0 05/14/22 07:09: Sodium 131 L, Potassium 3.5, Chloride 92 L, Carbon Dioxide 29, Anion Gap 13.5, BUN 17 D, Creatinine 0.40 L, Estimated Creat Clear 39, Estimated GFR 151, Est GFR ( Amer) 182 D, Glucose 104 H D, Calcium 7.8 L, Phosphorus 1.8 L, Total Bilirubin 0.8, AST 28, ALT 18, Alkaline Phosphatase 89, Total Protein 5.2 L, Albumin 2.4 L, Globulin 2.8, Albumin/Globulin Ratio 0.9 L I & O for Last 24 hours: Intake & Output 05/11/22 05/12/22 05/13/22 05/14/22 23:59 23:59 23:59 23:59 Intake Total 1919 / 1919 2705 / 2765 2672 / 2672 1098 / 1098 Output Total 425 / 425 500 / 500 0 / 0 300 / 300 Balance 1494 / 1494 2205 / 2265 2672 / 2672 798 / 798 Weight 56.274 kg 58.598 kg 60.583 kg 64.093 kg Results Data Completed and Pending Labs on day of discharge: Labs from last 24 hours 05/14/22 05/14/22 05/09/22 07:09 07:09 08:13 WBC 12.2 H RBC 3.18 L Hgb 9.4 L Hct 29.8 L MCV 93.7 MCH 29.7 MCHC 31.7 L RDW 14.8 Plt Count 217 MPV 8.3 Neut % (Auto) 83.8 H Lymph % (Auto) 9.8 L [place] % (Auto) 4.9 Eos % (Auto) 1.3 Baso % (Auto) 0.1 Neut # (Auto) 10.2 H Lymph # (Auto) 1.2 [place] # (Auto) 0.6 Eos # (Auto) 0.2 Baso # (Auto) 0.0 Sodium 131 L Potassium 3.5 Chloride 92 L Carbon Dioxide 29 Anion Gap 13.5 BUN 17 D Creatinine 0.40 L Estimated Creat Clear 39 Estimated GFR 151 Est GFR ( Amer) 182 D Glucose 104 H D Calcium 7.8 L Phosphorus 1.8 L Total Bilirubin 0.8 AST 28 ALT 18 Alkaline Phosphatase 89 Total Protein 5.2 L Albumin 2.4 L Globulin 2.8 Albumin/Globulin Ratio 0.9 L Crossmatch (AHG) See Detail DS: Diagnosis Discharge Diagnosis (1) Closed right hip fracture: Status: Acute (2) Closed fracture of proximal end of right humerus: Status: Acute (3) Atrial fibrillation: Status: Acute (4) Hyponatremia: Status: Acute (5) Hi
--- NOTE | 2022-05-14 13:04 | EXP.DC.SUM ---
General Admission date:: 05/08/22 Discharge date: 05/14/22 HPI HPI HPI: Ms. Rainey is a 87-year-old female with a past medical history that is positive for Chronic Atrial Fibrillation on chronic anticoagulation, CAD, Hypertension, Anemia of Chronic Disease. She presents to [facility] through the ER due to a fall that occurred at her home from ground level that occurred a couple hours prior to presentation. The patient was seen in the ER on admission, her neice Pam was at bedside. The patient reports that she walks with a walker in her home, but walks with a cane to go to her mailbox. She reports that she was walking to her mailbox and lost her balance and fell and hit her right hip. She denies losing consciousness. Neighbors saw her and came to her side and called 911. Work-up revealed Right femoral neck fracture and right proximal humerus fracture. Patient suffered similar injuries a few years ago on the left side had hemiarthroplasty of left hip and ORIF of the proximal humerus. It is noted that she had return to function in regards to walking with a cane independently at home. She reports that the pain in her shoulder is worse today than the pain in her hip. She has been monitored with INR which is decreasing at this point. Admitted to the hospital for definitive treatment of orthopedic injuries. Hospital Course Hospital Course Hospital Course: Patient was admitted to medicine for management of comorbidities while orthopedics performed open reduction internal fixation right proximal humerus and hemiarthroplasty of right hip. Following the procedure patient had symptomatic anemia due to her procedure, atrial fibrillation was held due to bleeding and she received 2 units transfusion. Coumadin was restarted and H&H was monitored and remained stable. Orthopedics recommended return to Ortho clinic in 2 weeks for staple removal of the right hip. On day of discharge patient had clinically improved with labs stable and acceptable for safe discharge to facility. Patient was discharged. Upon discharge would recommend close follow-up of blood counts to ensure hemoglobin remained stable. Exam Data for Last 24 hours Vital signs and Labs for Last 24 Hours: Temp Pulse Resp BP Pulse Ox 97.8 F 83 20 186/77 H 97 05/14/22 08:00 05/14/22 08:00 05/14/22 08:00 05/14/22 08:00 05/14/22 08:00 Laboratory Results - last 24 hr 05/09/22 08:13: Crossmatch (AHG) See Detail 05/14/22 07:09: WBC 12.2 H, RBC 3.18 L, Hgb 9.4 L, Hct 29.8 L, MCV 93.7, MCH 29.7, MCHC 31.7 L, RDW 14.8, Plt Count 217, MPV 8.3, Neut % (Auto) 83.8 H, Lymph % (Auto) 9.8 L, [place] % (Auto) 4.9, Eos % (Auto) 1.3, Baso % (Auto) 0.1, Neut # (Auto) 10.2 H, Lymph # (Auto) 1.2, [place] # (Auto) 0.6, Eos # (Auto) 0.2, Baso # (Auto) 0.0 05/14/22 07:09: Sodium 131 L, Potassium 3.5, Chloride 92 L, Carbon Dioxide 29, Anion Gap 13.5, BUN 17 D, Creatinine 0.40 L, Estimated Creat Clear 39, Estimated GFR 151, Est GFR ( Amer) 182 D, Glucose 104 H D, Calcium 7.8 L, Phosphorus 1.8 L, Total Bilirubin 0.8, AST 28, ALT 18, Alkaline Phosphatase 89, Total Protein 5.2 L, Albumin 2.4 L, Globulin 2.8, Albumin/Globulin Ratio 0.9 L I & O for Last 24 hours: Intake & Output 05/11/22 05/12/22 05/13/22 05/14/22 23:59 23:59 23:59 23:59 Intake Total 1919 / 1919 2705 / 2765 2672 / 2672 1098 / 1098 Output Total 425 / 425 500 / 500 0 / 0 300 / 300 Balance 1494 / 1494 2205 / 2265 2672 / 2672 798 / 798 Weight 56.274 kg 58.598 kg 60.583 kg 64.093 kg Constitutional Constitutional: no acute distress and cooperative *Routine Neck Exam Neck: Present supple and full ROM *Routine Respiratory Exam Respiratory: Present CTA bilaterally; Absent accessory muscle use *Routine Cardiovascular Exam Cardiovascular: Present Normal S1 and Normal S2; Absent murmur or rubs *Routine Abdominal Exam Abdominal: Present soft; Absent tenderness *Routine Extremities Exam Extremities: Absent cyanosis
--- NOTE | 2022-05-14 14:44 | P.DS_ITS ---
General Admission date:: 05/08/22 HPI HPI HPI: Ms. Rainey is a 87-year-old female with a past medical history that is positive for Chronic Atrial Fibrillation on chronic anticoagulation, CAD, Hypertension, Anemia of Chronic Disease. She presents to [facility] through the ER due to a fall that occurred at her home from ground level that occurred a couple hours prior to presentation. The patient was seen in the ER on admission, her neice Pam was at bedside. The patient reports that she walks with a walker in her home, but walks with a cane to go to her mailbox. She reports that she was walking to her mailbox and lost her balance and fell and hit her right hip. She denies losing consciousness. Neighbors saw her and came to her side and called 911. Work-up revealed Right femoral neck fracture and right proximal humerus fracture. Patient suffered similar injuries a few years ago on the left side had hemiarthroplasty of left hip and ORIF of the proximal humerus. It is noted that she had return to function in regards to walking with a cane independently at home. She reports that the pain in her shoulder is worse today than the pain in her hip. She has been monitored with INR which is decreasing at this point. Admitted to the hospital for definitive treatment of orthopedic injuries. Exam Data for Last 24 hours Vital signs and Labs for Last 24 Hours: Temp Pulse Resp BP Pulse Ox 97.8 F 83 20 186/77 H 97 05/14/22 08:00 05/14/22 08:00 05/14/22 08:00 05/14/22 08:00 05/14/22 08:00 Laboratory Results - last 24 hr 05/09/22 08:13: Crossmatch (AHG) See Detail 05/14/22 07:09: WBC 12.2 H, RBC 3.18 L, Hgb 9.4 L, Hct 29.8 L, MCV 93.7, MCH 29.7, MCHC 31.7 L, RDW 14.8, Plt Count 217, MPV 8.3, Neut % (Auto) 83.8 H, Lymph % (Auto) 9.8 L, [place] % (Auto) 4.9, Eos % (Auto) 1.3, Baso % (Auto) 0.1, Neut # (Auto) 10.2 H, Lymph # (Auto) 1.2, [place] # (Auto) 0.6, Eos # (Auto) 0.2, Baso # (Auto) 0.0 05/14/22 07:09: Sodium 131 L, Potassium 3.5, Chloride 92 L, Carbon Dioxide 29, Anion Gap 13.5, BUN 17 D, Creatinine 0.40 L, Estimated Creat Clear 39, Estimated GFR 151, Est GFR ( Amer) 182 D, Glucose 104 H D, Calcium 7.8 L , Phosphorus 1.8 L, Total Bilirubin 0.8, AST 28, ALT 18, Alkaline Phosphatase 89, Total Protein 5.2 L, Albumin 2.4 L, Globulin 2.8, Albumin/Globulin Ratio 0.9 L I & O for Last 24 hours: Intake & Output 05/11/22 05/12/22 05/13/22 05/14/22 23:59 23:59 23:59 23:59 Intake Total 1919 / 1919 2705 / 2765 2672 / 2672 1098 / 1098 Output Total 425 / 425 500 / 500 0 / 0 300 / 300 Balance 1494 / 1494 2205 / 2265 2672 / 2672 798 / 798 Weight 56.274 kg 58.598 kg 60.583 kg 64.093 kg Results Data Completed and Pending Labs on day of discharge: Labs from last 24 hours 05/14/22 05/14/22 05/09/22 07:09 07:09 08:13 WBC 12.2 H RBC 3.18 L Hgb 9.4 L Hct 29.8 L MCV 93.7 MCH 29.7 MCHC 31.7 L RDW 14.8 Plt Count 217 MPV 8.3 Neut % (Auto) 83.8 H Lymph % (Auto) 9.8 L [place] % (Auto) 4.9 Eos % (Auto) 1.3 Baso % (Auto) 0.1 Neut # (Auto) 10.2 H Lymph # (Auto) 1.2 [place] # (Auto) 0.6 Eos # (Auto) 0.2 Baso # (Auto) 0.0 Sodium 131 L Potassium 3.5
[2022-05-14 16:00] VITALS: BP 154/82; PULSE 85
--- NOTE | 2022-05-14 20:13 | PC.NURSE ---
Addendum entered by Eran Hinkle RN 05/14/22 20:36: Dr. Nadine Davis also aware of critical phos this am and ordered po phos. Original Note: Pt d/cd to [facility] today. Nurse called and stated script for norco wasnt sent to pharmacy. This RN spoke with Lesia hospitalist this evening and she stated she was going to f/u with Dr. Bridges in re to script because there was an issue w/ Dr. Nadine davis and medicare and writing the script.
== END 2022-05-14 16:22 | DRG 469 ==
LOC: ER 19:06 → 2ND 22:08
PROVIDERS: Internal Medicine Adolescent Medicine; Nurse Practitioner Family; Orthopaedic Surgery; Admitting Provider Student in an Organized Health Care Education/Training Program; Emergency Provider Emergency Medicine; PCP Nurse Practitioner Family; Visit Provider Student in an Organized Health Care Education/Training Program
PROC: (CPT 27236; principal; 2022-05-10 09:00)
DX: S42.291A Other displaced fracture of upper end of right humerus, initial encounter for closed fracture (principal); S72.011A Unspecified intracapsular fracture of right femur, initial encounter for closed fracture; I48.20 Chronic atrial fibrillation, unspecified; E87.1 Hypo-osmolality and hyponatremia; W01.0XXA Fall on same level from slipping, tripping and stumbling without subsequent striking against object, initial encounter; Z79.01 Long term (current) use of anticoagulants; Y92.017 Garden or yard in single-family (private) house as the place of occurrence of the external cause; I25.10 Atherosclerotic heart disease of native coronary artery without angina pectoris; I10 Essential (primary) hypertension; Z79.899 Other long term (current) drug therapy; D64.9 Anemia, unspecified; R29.6 Repeated falls
CPT/HCPCS: 27236; 23615; 36415; 51702; 70450; 71275; 72125; 72128; 72131; 72192; 73030; 73060; 73080; 73200; 73502; 73552; 73560; 74174; 76000; 80053; 81001; 82272; 82962; 83735; 83930; 84100; 84443; 85007; 85014; 85018; 85025; 85044; 85610; 86850; 86900; 86901; 97163; 97165; 97530; 99285; C1713; C1769; C1776; C9803; G0328; J2405; P9016; P9017; Q9967; U0003; U0005

== ENCOUNTER → 2022-06-01 13:09 | Outpatient (CLI) | payer MEDICARE, OTHER, SELFPAY ==
--- NOTE | 2022-06-01 13:16 | XR_ITS ---
FINAL REPORT CLINICAL HISTORY: s/p hip fracture FINDINGS: RIGHT HIP Two views of the right hip including an AP pelvis were obtained. There is right hip arthroplasty. The visualized bony structures are well aligned. There are soft tissue calcifications or bony fragments at the lateral right hip. IMPRESSION: Right hip arthroplasty. Soft tissue calcifications or bony fragments lateral to the right hip. Reviewed, Interpreted and Dictated by Sunny Santoro III, MD Transcribed by Cassandra Kincaid Authenticated and [facility]
--- NOTE | 2022-06-01 13:16 | XR_ITS ---
FINAL REPORT CLINICAL HISTORY: s/p rt humerus fracture FINDINGS: RIGHT SHOULDER 3 views of the right shoulder were obtained. There is a fracture of the humeral head and neck. There are postoperative changes from ORIF with a screw plate and multiple screws present. There is a large calcification lateral to the shoulder which may represent a bony fragment or loose body. There are mild degenerative changes. There is no soft tissue abnormality. IMPRESSION: Fracture of the humeral head and neck with postoperative changes from ORIF as above. Large calcification lateral to the shoulder may represent a bony fragment or loose body. Reviewed, Interpreted and Dictated by Sunny Santoro III, MD Transcribed by Cassandra Kincaid Authenticated and . [facility]
== END ==
PROVIDERS: PCP Family Medicine; Visit Provider Orthopaedic Surgery
DX: S42.201A Unspecified fracture of upper end of right humerus, initial encounter for closed fracture; S32.591A Other specified fracture of right pubis, initial encounter for closed fracture
CPT/HCPCS: 73030; 73502

== ENCOUNTER → 2022-07-29 12:53 | Outpatient (CLI) | payer MEDICARE, OTHER, SELFPAY ==
--- NOTE | 2022-07-29 12:57 | XR_ITS ---
FINAL REPORT CLINICAL HISTORY: humerus fracture FINDINGS: Right shoulder Three views were obtained. There is no acute fracture or dislocation. There are mild hypertrophic changes of the AC joint. No soft tissue abnormality is identified. IMPRESSION: No acute process. Reviewed, Interpreted and Dictated by Kiran Rojo MD Transcribed by Susan Zhang Authenticated and [facility]
--- NOTE | 2022-07-29 12:57 | XR_ITS ---
FINAL REPORT CLINICAL HISTORY: fracture COMPARISON: 06/01/2022 FINDINGS: Right hip Three views were obtained. There is no acute fracture or dislocation. Patient is status post total hip arthroplasty. Cerclage wire is seen surrounding the proximal femur. There is overlying skin verónica present. IMPRESSION: Postsurgical changes as above. Reviewed, Interpreted and Dictated by Kiran Rojo MD Transcribed by Susan Zhang Authenticated and . [facility]
== END ==
PROVIDERS: PCP Nurse Practitioner Family; Visit Provider Orthopaedic Surgery
DX: S72.001A Fracture of unspecified part of neck of right femur, initial encounter for closed fracture; S42.211A Unspecified displaced fracture of surgical neck of right humerus, initial encounter for closed fracture
CPT/HCPCS: 73030; 73502

== ENCOUNTER → 2022-11-04 12:11 | Outpatient (CLI) | payer MEDICARE, OTHER, MEDICAID, SELFPAY ==
--- NOTE | 2022-11-04 12:20 | XR_ITS ---
FINAL REPORT CLINICAL HISTORY: rt shoulder pain COMPARISON: 07/29/2022 FINDINGS: RIGHT SHOULDER Four views demonstrate chronic fracture of the proximal humerus with screw plate and multiple screws. Bony alignment appears stable. There is mild AC joint degenerative change. Moderate glenohumeral degenerative changes noted. The visualized bony structures are well aligned. No soft tissue abnormality is seen. IMPRESSION: Chronic fracture proximal humerus. Degenerative changes without acute bony abnormality. Reviewed, Interpreted and Dictated by Sunny Santoro III, MD Transcribed by Arielle Garay Authenticated and [facility]
== END ==
PROVIDERS: PCP Nurse Practitioner Family; Visit Provider Orthopaedic Surgery
DX: M25.511 Pain in right shoulder (principal)
CPT/HCPCS: 73030

== ENCOUNTER 2023-01-25 10:12 | Day surgery (SDC) | payer MEDICARE, OTHER, MEDICAID, SELFPAY ==
[2023-01-25] VITALS (7 sets, daily range): BP systolic 166–183; BP diastolic 76–84; PULSE 66–68; RESP 16–18; TEMP 36.4; O2SAT 99–100; BMI 19.7
== END 2023-01-25 13:19 | disposition home or self-care (01) ==
PROVIDERS: PCP Emergency Medicine; Visit Provider Ophthalmology
DX: H25.812 Combined forms of age-related cataract, left eye (principal)
CPT/HCPCS: 66984; V2632

== ENCOUNTER 2023-02-08 07:36 | Day surgery (SDC) | payer MEDICARE, OTHER, MEDICAID, SELFPAY ==
[2023-02-08 09:29] VITALS: BP 187/88; PULSE 73; RESP 18; TEMP 36.6; O2SAT 98; BMI 19.7
[2023-02-08 11:02] VITALS: BP 188/88; PULSE 94; RESP 14; TEMP 36.4; O2SAT 97
== END 2023-02-08 11:17 | disposition home or self-care (01) ==
PROVIDERS: PCP Emergency Medicine; Visit Provider Ophthalmology
DX: H25.811 Combined forms of age-related cataract, right eye (principal)
CPT/HCPCS: 66984; V2632

== ENCOUNTER 2023-02-16 09:22 | Emergency (ER) | payer MEDICARE, OTHER, SELFPAY ==
[2023-02-16] VITALS (16 sets, daily range): BP systolic 129–189; BP diastolic 59–104; PULSE 64–76; RESP 13–18; TEMP 36.4–36.5; O2SAT 96–99; BMI 19.7
--- NOTE | 2023-02-16 08:56 | ECG_ITS ---
APPROVED REPORT Exam: Resting ECG HR:64 bpm ECG Measurements Heart Rate 64 AXES MT 182 P 64 QRSd 87 QRS 10 QT 418 T 60 QTc 428 Conclusion SINUS RHYTHM POSSIBLE RIGHT VENTRICULAR CONDUCTION DELAY [RSR (QR) IN V1/V2] BORDERLINE ECG UNCONFIRMED REPORT Electronically signed by : Isauro Brice MD 02/17/2023 18:37:26
--- NOTE | 2023-02-16 09:19 | XR_ITS ---
FINAL REPORT CLINICAL HISTORY: left shoulder pain COMPARISON: None FINDINGS: The heart size is normal. The mediastinum is normal. There are moderate chronic changes in both lungs. There is no focal infiltrate or edema. There are no pleural effusions. There is no pneumothorax. There is no osseous abnormality. There are side plates and screws securing the proximal right and left humerus. IMPRESSION: No acute cardiopulmonary process Reviewed, Interpreted and Dictated by Kiran Rojo MD Transcribed by Arielle Garay Authenticated and [facility]
--- NOTE | 2023-02-16 09:19 | XR_ITS ---
FINAL REPORT CLINICAL HISTORY: left shoulder pain COMPARISON: None FINDINGS: LEFT SHOULDER 3 views of the left shoulder were obtained. There is a sideplate and screws securing the proximal left humerus. There is no acute fracture or dislocation. There are mild hypertrophic changes of the acromioclavicular joint. Visualized joint spaces are normally aligned. Soft tissues are unremarkable. IMPRESSION: No acute bony abnormality. Reviewed, Interpreted and Dictated by Kiran Rojo MD Transcribed by Arielle Garay Authenticated and [facility]
--- NOTE | 2023-02-16 09:19 | XR_ITS ---
FINAL REPORT CLINICAL HISTORY: left shoulder pain COMPARISON: None FINDINGS: Two views of the left humerus were obtained. There is a sideplate and screws securing the proximal left humerus. There is no acute fracture or dislocation. Bones are osteopenic. The joint spaces are well preserved. There is no acute soft tissue abnormality. IMPRESSION: No acute abnormality identified. Reviewed, Interpreted and Dictated by Kiran Rojo MD Transcribed by Arielle Garay Authenticated and [facility]
--- NOTE | 2023-02-16 09:23 | PC.NURSE ---
DR ZHAO AT BEDSIDE
--- NOTE | 2023-02-16 09:29 | HMH.EDGENADL ---
Discharge Plan Disposition Patient Disposition: Home, Self-Care Chief Complaint: PAIN Prescriptions Prescriptions: No Action multivitamin Tablet 1 tab PO DAILY amiloride-hydrochlorothiazide 5-50 mg Tablet 1 tab PO DAILY alendronate 70 mg Tablet 70 mg PO WEEKLY melatonin 3 mg Tablet 3 mg PO HS PRN (Reason: Sleep) warfarin [Coumadin] 3 mg Tablet 3 mg PO DAILY aspirin 81 mg Tablet 81 mg PO DAILY acetaminophen 500 mg Capsule 500 mg PO Q6H PRN (Reason: pain or fever) metoprolol tartrate 25 mg Tablet 25 mg PO BID senna 8.6 mg Capsule 8.6 mg PO BID PRN (Reason: Constipation) Referrals Follow up/Referrals: Provider,Referral, MD [Referring] - See instructions Activity Restrictions/Add. Instructions Additional Instructions/Restrictions: Call your family doctor to establish care for this visit to the emergency department and schedule follow-up within 48 hours to ensure improvement. If you have any worsening of your condition or any other concerning signs or symptoms, return to the emergency department or your primary care doctor for further evaluation. Take Tylenol 1000 mg every 6 hours (4 times daily) and ibuprofen 400 mg every 6 hours (4 times daily) as needed with food and water to prevent GI upset and kidney damage. Clinical Impressions Clinical Impression: Acute pain of left shoulder, Chest pain Discharge ED Provider: Milton Maldonado General Adult HPI General Chief complaint: PAIN Stated complaint: shoulder pain Time Seen by Provider: 02/16/23 09:25 Mode of Arrival: EMS Limitations: No Limitations Description of Symptoms (Recalled from ER Triage Doc. by RN): PT C/O LEFT SHOULDER/ARM PAIN THAT IS WORSE IN THE AM WHEN SHE WAKES UP. PAIN HAS INCREASED OVER 3-4 DAYS. HX History of Present Illness HPI narrative: This is an 87-year-old female with history of UT status post stenting currently on aspirin and warfarin, CAD, CHF presenting with left shoulder pain. Patient states that she broke her left shoulder multiple years ago. Since that time, has had pain in her left shoulder. Has been having progressively worsening pain in her left shoulder over the past 3 to 4 days and states that when her pain gets bad, her blood pressure increases and she has dull, left-sided chest pain. Not currently having chest pain, but had some this morning when she hurt her shoulder. Denies shortness of breath, nausea, vomiting, diaphoresis, injury, syncope, abdominal pain, or any other concerns at this time. Was brought here by EMS from nursing facility given left shoulder pain and history of MIs. Related Data Home Medications Medication Instructions Recorded Confirmed acetaminophen 500 mg capsule 500 mg PO Q6H PRN pain or fever 01/25/23 01/25/23 alendronate 70 mg tablet 70 mg PO WEEKLY bones 01/25/23 01/25/23 amiloride 5 mg-hydrochlorothiazide 1 tab PO DAILY htn 01/25/23 01/25/23 50 mg tablet aspirin 81 mg tablet 81 mg PO DAILY Blood Thinner 01/25/23 01/25/23 melatonin 3 mg tablet 3 mg PO HS PRN Sleep 01/25/23 01/25/23 metoprolol tartrate 25 mg tablet 25 mg PO BID bp 01/25/23 01/25/23 multivitamin 1 tab PO DAILY Supplement 01/25/23 01/25/23 sennosides 8.6 mg capsule (senna) 8.6 mg PO BID PRN Constipation 01/25/23 01/25/23 warfarin 3 mg tablet 3 mg PO DAILY Blood Thinner 01/25/23 01/25/23 Allergies Allergy/AdvReac Type Severity Reaction Status Date / Time No Known Allergies Allergy Verified 01/25/23 11:35 [facility] Disclaimer: The information contained in this section may have been updated after the patient was seen, as this information can be updated by other users. Medical History (Updated 02/16/23 @ 14:39 by Milton Maldonado MD) History of heart attack Hypertension Osteoarthritis Surgical History (Updated 01/25/23 @ 11:40 by Arielle Whiteside RN) History of right hip replacement History of shoulder surgery Family History (Updated 01/25/23 @ 11:40 by Arielle Granados
[2023-02-16 10:12] LABS: Basophils % 0.2 % (0.1-2.0); Eosinophils # 0.2 K/mm3 (0.0-0.4); Eosinophils % 1.6 % (0.1-12.0); Hematocrit 39.6 % (37.0-47.0); Hemoglobin 12.7 g/dL (12.2-16.2); Lymphocytes # 1.5 K/mm3 (0.7-4.5); Mean Corpuscular Hemoglobin 29.6 pg (27.0-31.2); Mean Corpuscular Volume 92.5 fl (81-99); Mean Platelet Volume 8.1 fl (7.4-10.4); Monocytes # 0.5 K/mm3 (0.1-1.0); Monocytes % 5.5 % (1.7-9.3); Neutrophils % 76.7 % (37.0-80.0); Platelet Count 227 K/mm3 (142-424); Red Blood Count 4.28 M/mm3 (4.20-5.40); Red Cell Distribution Width 14.3 % (11.5-17.5); White Blood Count 9.1 K/mm3 (4.8-10.8)
[2023-02-16 10:18] LABS: Alanine Aminotransferase 26 U/L (12-78); Albumin Level 4.6 g/dl (3.5-5.0); Albumin/Globulin Ratio 0.9 (1.1-1.8); Alkaline Phosphatase 85 U/L (38-126); Anion Gap 11.8 mEq/L (5-15); Aspartate Amino Transferase 87 U/L (14-36); Bilirubin,Total 1.6 mg/dl (0.2-1.3); Blood Urea Nitrogen 16 mg/dl (7-17); Calcium 8.9 mg/dl (8.4-10.2); Carbon Dioxide 33 mmol/L (22.0-30.0); Chloride 90 mmol/L (98-107); Creatinine Clearance Estimated 32 mL/min (50-200); Estimated Glomerular Filt Rate 94 ml/min (>60); GFR (African American) 114 ML/MIN (>60); Globulin 5.2 g/dL (1.3-3.2); Glucose 99 mg/dl (74-100); Potassium 5.8 mmoL/L (3.5-5.1); Sodium 129 mmol/L (136-145); Total Protein,Serum 9.8 g/dl (6.3-8.2)
[2023-02-16 10:20] LABS: Activated Partial Thrombo Time 42.4 seconds (22.8-30.6); INR 3.35 (0.9-1.1); Prothrombin Time 33.4 seconds (10.1-12.5)
[2023-02-16 10:33] LABS: Troponin I 0.01 ng/ml (0.00-0.034)
--- NOTE | 2023-02-16 10:54 | PC.NURSE ---
DR ZHAO UPDATING FAMILY AT THIS TIME
--- NOTE | 2023-02-16 10:56 | PC.NURSE ---
lab is coming to [facility]raw potassium
--- NOTE | 2023-02-16 11:11 | PC.NURSE ---
Rounded on pt to see if they had any needs. Pt stated no needs at this time .
[2023-02-16 11:50] LABS: Potassium 3.8 mmoL/L (3.5-5.1)
--- NOTE | 2023-02-16 13:01 | PC.NURSE ---
rounded on pt, updated pt on POC, call button in reach. Offered pt lunch tray, pt declined
--- NOTE | 2023-02-16 13:35 | PC.NURSE ---
DR ZHAO AT BEDSIDE TO UPDATE PT
--- NOTE | 2023-02-16 13:45 | PC.NURSE ---
REGULAR LUNCH TRAY SET-UP FOR PT
[2023-02-16 14:13] LABS: Troponin I < 0.01 ng/ml (0.00-0.034)
--- NOTE | 2023-02-16 14:47 | PC.NURSE ---
report called to traci at [facility] / [facility]
--- NOTE | 2023-02-16 16:05 | PC.NURSE ---
[facility] NOTIFIED OF TRANSFER BACK TO [facility]
== END 2023-02-16 17:10 | disposition home or self-care (01) ==
PROVIDERS: Emergency Provider Emergency Medicine; PCP Nurse Practitioner Family
DX: R07.9 Chest pain, unspecified (principal); M25.512 Pain in left shoulder; I25.10 Atherosclerotic heart disease of native coronary artery without angina pectoris; I50.9 Heart failure, unspecified; I25.2 Old myocardial infarction; Z79.01 Long term (current) use of anticoagulants; Z79.82 Long term (current) use of aspirin; I11.0 Hypertensive heart disease with heart failure
CPT/HCPCS: 36415; 71045; 73030; 73060; 80053; 84132; 84484; 85025; 85610; 85730; 93005; 99285

== ENCOUNTER 2023-10-24 02:38 | Inpatient (IN) | payer MEDICARE, OTHER, MEDICAID, SELFPAY ==
[2023-10-24] VITALS (24 sets, daily range): BP systolic 67–164; BP diastolic 39–86; PULSE 42–142; RESP 11–24; TEMP 36.4–36.7; O2SAT 94–99; BMI 23.3
--- NOTE | 2023-10-24 02:00 | ECG_ITS ---
APPROVED REPORT Exam: Resting ECG HR:131 bpm ECG Measurements Heart Rate 131 AXES QRSd 81 QRS -33 QT 246 T 240 QTc 323 Conclusion ATRIAL FIBRILLATION WITH RAPID VENTRICULAR RESPONSE WITH ABERRANT CONDUCTION OR VENTRICULAR PREMATURE COMPLEXES LEFT AXIS DEVIATION [QRS AXIS < -30] LOW QRS VOLTAGE IN PRECORDIAL LEADS [QRS DEFLECTION < 1.0 mV IN CHEST LEADS] PATTERN CONSISTENT WITH PULMONARY DISEASE ST DEVIATION AND MODERATE T-WAVE ABNORMALITY, CONSIDER LATERAL ISCHEMIA [-0.1+ mV T-WAVE IN I/aVL/V5/V6] No acute STEMI Electronically signed by : ROMULO ROMAN, 10/24/2023 03:40:04
--- NOTE | 2023-10-24 02:38 | XR_ITS ---
PROCEDURE INFORMATION: Exam: XR Chest Exam date and time: 10/24/2023 2:51 AM Age: 88 years old Clinical indication: Pain; Chest pressure; Additional info: Chest pain TECHNIQUE: Imaging protocol: Radiologic exam of the chest. Views: 1 view. COMPARISON: CR XR CHEST PORTABLE 02/16/2023 9:33 AM FINDINGS: Lungs: Chronic interstitial changes. No focal infiltrates. Pleural spaces: Unremarkable. No pleural effusion. No pneumothorax. Heart/Mediastinum: Unremarkable. No cardiomegaly. Bones/joints: Bilateral ORIF of the humeral head and neck.. IMPRESSION: Chronic interstitial changes. No focal infiltrates.
--- NOTE | 2023-10-24 02:41 | HMH.EDGENADL ---
Discharge Plan Disposition Patient Disposition: Admitted Clinical Impressions Clinical Impression: Atrial fibrillation with RVR, Hyponatremia, Hypokalemia, Hypomagnesemia, Supratherapeutic INR Discharge ED Provider: [facility] HPI General Chief complaint: Arrhythmia/Palpitations Stated complaint: heart pounding out of chest Time Seen by Provider: 10/24/23 02:38 History of Present Illness HPI narrative: This patient is an 88-year-old female with a history of paroxysmal atrial fibrillation, CAD, hypertension, hyperlipidemia, anemia of chronic disease, and general debility presenting to the emergency department from [facility] for evaluation with concern for palpitations. The patient states that she had been asleep for about 20 minutes tonight when she woke up with her heart racing. She also states she is having some pain in between her shoulder blades and down her left arm. She notes yesterday she felt fine and she felt fine when she went to bed. She states that prior to yesterday, she had had a diarrheal illness for approximately 3 days. She notes this is improved. No other concerns noted, such as fevers, chills, shortness of breath, nausea, vomiting, or other issues. EMS arrived with the patient who noted that on EKG, she was in atrial fibrillation with RVR en route. They do note that she was hemodynamically stable. Related Data Home Medications Medication Instructions Recorded Confirmed amiloride 5 mg-hydrochlorothiazide 1 tab PO DAILY Hypertension 02/13/18 10/20/23 50 mg tablet aspirin 81 mg chewable tablet 81 mg PO DAILY HEART HEALTH 02/13/18 10/20/23 acetaminophen 500 mg capsule 500 mg PO Q6H PRN pain or fever 01/25/23 10/20/23 alendronate 70 mg tablet 70 mg PO WEEKLY bones 01/25/23 10/20/23 metoprolol tartrate 25 mg tablet 25 mg PO BID bp 01/25/23 10/20/23 multivitamin 1 tab PO DAILY Supplement 01/25/23 10/20/23 sennosides 8.6 mg capsule (senna) 8.6 mg PO BID PRN Constipation 01/25/23 10/20/23 docusate sodium 100 mg capsule 100 mg PO DAILY 07/08/23 10/20/23 ondansetron HCl 4 mg tablet 4 mg PO Q6H PRN 07/08/23 10/20/23 docusate sodium 100 mg tablet mg PO 10/20/23 10/20/23 (Stool Softener) warfarin 1 mg tablet mg PO DAILY 10/20/23 10/20/23 Previous Rx's Medication Instructions Recorded triamcinolone acetonide 0.1 % 1 applic topical DAILY #30 grams 07/06/23 topical cream melatonin 3 mg capsule 3 mg PO HS sleep #30 caps 07/08/23 Allergies Allergy/AdvReac Type Severity Reaction Status Date / Time No Known Allergies Allergy Verified 10/20/23 13:53 [facility] Disclaimer: The information contained in this section may have been updated after the patient was seen, as this information can be updated by other users. Medical History Otitis externa of left ear Hearing loss History of COVID-19 Anxiety Hypertension History of heart attack Edema Pancreatitis Skin cancer History of cataract CAD (coronary artery disease) Allergies Hypertension Hyponatremia History of fall Atrial fibrillation Cholecystectomy planned Osteoarthritis Hypertension History of heart attack Surgical History H/O hemorrhoidectomy History of cataract surgery H/O wrist surgery H/O shoulder surgery History of hip replacement History of shoulder surgery History of right hip replacement Family History Sister Colon cancer Brother Prostate cancer Other Family history of hypertension Heart disease Hypertension Leukemia Skin cancer Social History Smoking Status: Former smoker alcohol intake: never substance use type: denies use current occupational status: unemployed and retired Travel in the last 8 weeks: None household members: none housing: house current occupational exposures/hazards: No caffeine: No ROS Obtained: Yes All systems reviewed & no additional complaints except as documented Physical Exam General General appearance: alert and in no apparent distress Head Head exam: atraumatic and normocephalic Eye Eye exam: Present normal appearance, PERRL and EOMI ENT ENT exam: Present normal exam, normal oropharynx, mucous membranes moist and normal external ear exam Neck Neck exam: Present normal inspection, full ROM and trachea midline; Absent tenderness Chest Chest inspection: Present normal inspection and symmetric chest wall rise; Absent tenderness Respiratory Respiratory exam: Present normal lung sounds bilaterally; Absent respiratory distress, wheezes, stridor or accessory muscle use Cardiovascular Cardiovascular exam: Present tachycardia and irregular rhythm Abdominal Exam Abdominal exam: Present soft; Absent distention, tenderness or guarding Extremities Exam Extremities exam: Present normal inspection, full ROM and normal capillary refill; Absent tenderness or edema Back Exam Back exam: Present normal inspection and full ROM; Absent tenderness Neurological Exam Neurological exam: Present alert, oriented X3, CN II-XII intact and normal gait; Absent motor sensory deficit Psychiatric Psychiatric exam: Present normal affect and normal mood Skin Skin exam: Present warm and dry Medical Decision Making Medical Records Medical records reviewed: Yes I reviewed the patient's medical records. Jose Inquiry Pt receiving controlled substance: No Vital Signs: 10/24/23 02:38 Temperature 97.7 F Temperature Source Oral Pulse Rate [Right] 142 H Respiratory Rate 24 Blood Pressure [Right Arm] 122/86 Blood Pressure Mean [Right Arm] 98 Blood Pressure Source [Right Arm] Automatic Cuff Blood Pressure Position [Right Arm] Sitting 02 Sat by Pulse Oximetry 98 Oxygen Delivery Method Nasal Cannula Oxygen Flow Rate (LPM) 2 Lab Data Lab results reviewed: Yes I reviewed the patient's lab results. Lab Results 10/24/23 02:44: WBC 5.8, RBC 4.10 L, Hgb 12.6, Hct 39.1, MCV 95.5, MCH 30.7, MCHC 32.1, RDW 13.8, Plt Count 232, MPV 7.8, Neut % (Auto) 55.0, Lymph % (Auto) 34.3, Lyon % (Auto) 4.4, Eos % (Auto) 5.1, Baso % (Auto) 1.0, Neut # (Auto) 3.2, Lymph # (Auto) 2.0, [place] # (Auto) 0.3, Eos # (Auto) 0.3, Baso # (Auto) 0.1, PT 45.5 H, INR 4.66 H, APTT 49.0 H, D-Dimer 0.28, Sodium 126 L, Potassium 3.4 L, Chloride 92 L, Carbon Dioxide 32 H, Anion Gap 5.4, BUN 14, Creatinine 0.50 L, Estimated Creat Clear 37, Estimated GFR 116, Est GFR ( Amer) 141, Glucose 126 H, Calcium 8.7, Magnesium 1.3 L, Total Bilirubin 1.0, AST 61 H, ALT 46, Alkaline Phosphatase 171 H, Troponin I 0.01, NT-Pro-B Natriuret Pep 845 H, Total Protein 6.6 D, Albumin 3.6, Globulin 3.0, Albumin/Globulin Ratio 1.2, TSH 2.51, Thyroxine (T4) 10.2 10/24/23 02:44 10/24/23 02:44 Orders (Tests/Meds): ED MEDICATIONS Generic Name Dose Route Start Last Admin Trade Name Freq PRN Reason Stop Dose Admin Acetaminophen 650 mg 10/24/23 04:22 Acetaminophen 325mg Tab PO 11/23/23 04:21 Q4HP PRN Fever or Mild Pain (1-3) Diltiazem HCl 100 mg/ Sodium 100 mls @ 10 mls/hr 10/24/23 03:24 10/24/23 03:51 Chloride IV 11/23/23 03:23 5 mg/hr .Q10H STANLEY 5 mls/hr Administration Protocol 10 MG/HR Potassium Chloride/Water 100 mls @ 100 mls/hr 10/24/23 03:55 10/24/23 04:20 Potassium Chloride 10meq/100ml Ivpb IV 10/24/23 04:54 100 mls/hr ONCE ONE Administration Magnesium Sulfate 2 gm in 50 mls @ 50 mls/hr 10/24/23 03:55 10/24/23 04:09 Magnesium Sulfate 2gm/50ml Premix IV 10/24/23 04:54 50 mls/hr ONCE ONE Administration Sodium Chloride 1,000 mls @ 999 mls/hr 10/24/23 03:56 10/24/23 04:20 Sod Chlor 0.9% 1000ml Bag IV 10/24/23 04:56 999 mls/hr .Q1H1M ONE Administration Metoprolol Tartrate 5 mg 10/24/23 02:40 10/24/23 03:09 Metoprolol Tartrate 5mg/5ml Vial IV 11/23/23 02:39 5 mg Q5MINP PRN Administration atrial fib Morphine Sulfate 2 mg 10/24/23 04:22 Morphine 2mg/Ml Syringe IV 11/23/23 04:21 Q2HP PRN Severe Pain (7-10) Nicotine 21 mg 10/24/23 04:22 Nicotine 21mg/24hr Patch TD 11/23/23 04:21 DAILYP PRN Nicotine Cravings Ondansetron HCl 4 mg 10/24/23 04:22 Ondansetron 4mg/2ml Vial IV 11/23/23 04:21 Q8HP PRN Nausea Pantoprazole Sodium 40 mg 10/24/23 09:00 Pantoprazole 40mg Tablet PO 11/23/23 08:59 DAILY STANLEY Discontinued Medications Generic Name Dose Route Start Last Admin Trade Name Freq PRN Reason Stop Dose Admin Aspirin 324 mg 10/24/23 02:39 10/24/23 02:49 Aspirin 81mg Chewable Tablet PO 10/24/23 02:40 324 mg ONCE ONE Administration Diltiazem HCl 10 mg 10/24/23 03:24 10/24/23 03:40 Diltiazem 25mg/5ml Vial IV 10/24/23 03:25 10 mg ONCE ONE Administration Lactated Ringer's 1,000 mls @ 999 mls/hr 10/24/23 02:39 10/24/23 02:49 Lactated Ringer's 1000 Ml Bag IV 10/24/23 03:39 999 mls/hr .Q1H1M ONE Administration Lactated Ringer's 1,000 mls @ 999 mls/hr 10/24/23 03:52 10/24/23 03:58 Lactated Ringer's 1000 Ml Bag IV 10/24/23 04:52 999 mls/hr .Q1H1M ONE Administration Metoprolol Tartrate 25 mg 10/24/23 02:40 10/24/23 02:50 Metoprolol Tartrate 50mg Tablet PO 10/24/23 02:41 25 mg ONCE ONE Administration ORDERS Category Date Time Status Cardiology Consult [Consult to Cardiology] [CONS] Cons 10/24/23 04:22 Active Routine XR chest portable Stat Exams 10/24/23 02:38 Completed Activated Partial Thrombo Time Stat Lab 10/24/23 02:44 Completed BNP [NT Pro Brain Natriuretic Pep.] Stat Lab 10/24/23 02:44 Completed CMP [Comprehensive Metabolic Panel] Stat Lab 10/24/23 02:44 Completed Complete Blood Count Auto Diff AMLAB Lab 10/24/23 06:00 Ordered Complete Blood Count Auto Diff Stat Lab 10/24/23 02:44 Completed Comprehensive Metabolic Panel AMLAB Lab 10/24/23 06:00 Ordered D-Dimer Stat Lab 10/24/23 02:44 Completed Magnesium Stat Lab 10/24/23 02:44 Completed Prothrombin Time INR Stat Lab 10/24/23 02:44 Completed T4 (Thyroxine) Stat Lab 10/24/23 02:44 Completed Thyroid Stimulating Hormone Stat Lab 10/24/23 02:44 Completed Troponin I Q3H Lab 10/24/23 05:45 Ordered Troponin I Q3H Lab 10/24/23 08:45 Ordered Troponin I Stat Lab 10/24/23 02:44 Completed ECG Data Tracing #1: I reviewed this ECG and interpreted as documented below: Atrial fibrillation with a ventricular rate of [address]/T wave changes. Does not meet STEMI criteria. ECG initial impression date: 10/24/23 ECG initial impression time: 02:38 Medical Decision Narrative: In summary, this patient is a 88-year-old female presenting to the Emergency Department for evaluation of palpitations, shoulder blade pain, and pain going down her left arm. Differential diagnoses considered include but are not limited to ACS, atrial fibrillation with RVR, dysrhythmia, GERD, costochondritis, pleurisy, pneumonia, electrolyte derangements. Ruling out the most morbid conditions drove assessment. It should be noted patient's history includes atrial fibrillation, CAD, hypertension, and hyperlipidemia which are not at goal therapy. This complicates all aspects of care by increasing patient's risk for morbidity. On exam, the patient is in atrial fibrillation with RVR with a ventricular rate in the 130s to 150s. Blood pressure is stable and oxygen saturation is normal. Workup included CBC, CMP, troponin, TSH, T4, BNP, magnesium, D-dimer, chest x-ray, EKG. I had an interactive discussion with Dr. Castellanos with cardiology regarding her EKG and he agrees no STEMI. He advised attempted cardioversion and reassessment. She appears clinically dry on exam in the setting of recent diarrheal illness. She was given a bolus of IV fluids as well as oral aspirin. She was also given 25 mg of oral metoprolol as well as IV metoprolol 5 mg x 3 to attempt cardioversion/rate control. Patient's blood pressure tolerated this well, but she only had a transient improvement in heart rate and went back up into the 140s to 150s. I had a discussion with patient at this time offering electrical cardioversion given that she is therapeutically anticoagulated with warfarin, and is actually supratherapeutic. She declined, stating that she would not ever want to go through that. She expressed understanding agreement that other interventions may not work quite as well. She would like to proceed with IV medications to try and control her heart rate. She was then given a 10 mg diltiazem bolus and was started on a diltiazem drip. We tried to start the diltiazem drip at 10, however patient's blood pressure did not tolerate this with a drop in her MAP to just below 60. Given this, we decreased it to 5. I independently interpreted x-ray prior to the radiologist read and noted focal consolidation or other concerns. Please see their read for final interpretation. Labs were obtained that demonstrated mild hyponatremia and hypokalemia in the setting of recent diarrheal illness. She also has mild hypomagnesemia. Second liter bolus of IV fluids was ordered as well as potassium and magnesium replacement. On reassessment, patient had good improvement after administration of drip. Her heart rate was in the 60s to 70s with maps greater than 65 on blood pressure. Given significant improvement on 5 diltiazem, drip was decreased to 2.5.. At this time, patient was deemed to be appropriate for admission. I had an interactive discussion with the hospitalist who admitted the patient for further evaluation and management. Critical Care Critical Care Time Critical Care Time: Yes Attestation: On 10/24/23, the high probability of a clinically significant, sudden or life threatening deterioration of the following system(s) required my full and direct attention, intervention and personal management. The time I documented below is in addition to time spent performing reported procedures but includes the following listed in this critical care notation. Total Time Total Critical Care Time: 45
--- NOTE | 2023-10-24 02:45 | PC.NURSE ---
Pt given 4mg Zofran by EMS in route
[2023-10-24] MEDS: ASPIRIN 81MG CHEWABLE TABLET 324 MG PO (02:49)
[2023-10-24] MEDS: LACTATED RINGERS 1000ML 1,000 ML 999 ML IV ×2 (02:49→03:58)
[2023-10-24] MEDS: METOPROLOL TARTRATE 5MG/5ML VIAL 5 MG IV ×2 (02:49→03:09)
[2023-10-24] MEDS: METOPROLOL TARTRATE 50MG TABLET 25 MG PO (02:50)
[2023-10-24 02:56] LABS: Basophils # 0.1 K/mm3 (0-0.2); Eosinophils # 0.3 K/mm3 (0.0-0.4); Eosinophils % 5.1 % (0.1-12.0); Hematocrit 39.1 % (37.0-47.0); Hemoglobin 12.6 g/dL (12.2-16.2); Lymphocytes % 34.3 % (10-50); Mean Corpuscular HGB Conc 32.1 g/dL (31.8-35.4); Mean Corpuscular Hemoglobin 30.7 pg (27.0-31.2); Mean Corpuscular Volume 95.5 fl (81-99); Mean Platelet Volume 7.8 fl (7.4-10.4); Monocytes # 0.3 K/mm3 (0.1-1.0); Monocytes % 4.4 % (1.7-9.3); Neutrophils # 3.2 K/mm3 (1.8-7.8); Platelet Count 232 K/mm3 (142-424); Red Cell Distribution Width 13.8 % (11.5-17.5); White Blood Count 5.8 K/mm3 (4.8-10.8)
[2023-10-24 03:03] LABS: Chloride 92 mmol/L (98-107); INR 4.66 (0.9-1.1); Potassium 3.4 mmoL/L (3.5-5.1); Sodium 126 mmol/L (136-145)
[2023-10-24 03:04] LABS: Prothrombin Time 45.5 seconds (10.1-12.5)
[2023-10-24 03:05] LABS: Blood Urea Nitrogen 14 mg/dl (7-17); Creatinine Clearance Estimated 37 mL/min (50-200); Estimated Glomerular Filt Rate 116 ml/min (>60); GFR (African American) 141 ML/MIN (>60)
--- NOTE | 2023-10-24 03:05 | PC.NURSE ---
Lab called for critical value of PT of [address] Marin.
[2023-10-24 03:06] LABS: Alanine Aminotransferase 46 U/L (12-78); Albumin Level 3.6 g/dl (3.5-5.0); Albumin/Globulin Ratio 1.2 (1.1-1.8); Alkaline Phosphatase 171 U/L (38-126); Anion Gap 5.4 mEq/L (5-15); Aspartate Amino Transferase 61 U/L (14-36); Calcium 8.7 mg/dl (8.4-10.2); Carbon Dioxide 32 mmol/L (22.0-30.0); Glucose 126 mg/dl (74-100); Magnesium 1.3 mg/dl (1.6-2.3); Total Protein,Serum 6.6 g/dl (6.3-8.2)
[2023-10-24 03:09] LABS: D-Dimer 0.28 ug/mL (0.0-0.5)
[2023-10-24 03:11] LABS: NT Pro Brain Natriuretic Pep. 845 pg/mL (0-450)
--- NOTE | 2023-10-24 03:12 | PC.NURSE ---
3 doses of metorprolol administered, HR 145 to 120s, Dr Marin aware. Family at bedside, blankets provided, no needs at this time
[2023-10-24 03:19] LABS: Troponin I 0.01 ng/ml (0.00-0.034)
[2023-10-24 03:23] LABS: T4 (Thyroxine) 10.2 ug/dl (5.53-11.0)
[2023-10-24 03:37] LABS: Thyroid Stimulating Hormone 2.51 uIU/mL (0.465-4.68)
[2023-10-24] MEDS: dilTIAZem 25MG/5ML VIAL 10 MG IV (03:40)
[2023-10-24] MEDS: dilTIAZem HCL 100 MG in 0.9 % SODIUM CHLORIDE 100 ML IV (03:51)
[2023-10-24] MEDS: MAGNESIUM SULFATE IN WATER 2 GM/50 ML PIGGYBACK IV (04:09)
[2023-10-24] MEDS: 0.9 % SODIUM CHLORIDE 1000ML 1,000 ML 999 ML IV (04:20)
[2023-10-24] MEDS: KCl 10mEq/100ml 100 ML 100 MEQ IV (04:20)
--- NOTE | 2023-10-24 04:22 | PC.NURSE ---
contacted house for bed assignment. patient to be admitted for dx afib rvr.
--- NOTE | 2023-10-24 04:23 | EXP.HP ---
History of Present Illness *Admission Date: 10/24/23 *History of present illness: This is a 88-year-old female with PMHx of paroxysmal atrial fibrillation on warfarin, CAD, hypertension, hyperlipidemia, anemia of chronic disease, and general debility brought into the emergency department from [facility] for evaluation with concern for palpitations. The patient states that she had been asleep for about 20 minutes tonight when she woke up with her heart racing. She also states she is having some pain in between her shoulder blades and down her left arm. She notes yesterday she felt fine and she felt fine when she went to bed. She states that prior to yesterday, she had had a diarrheal illness for approximately 3 days. She notes this is improved. No other concerns noted, such as fevers, chills, shortness of breath, nausea, vomiting, or other issues. [facility] Disclaimer: The information contained in this section may have been updated after the patient was seen, as this information can be updated by other users. Medical History Otitis externa of left ear Hearing loss History of COVID-19 Anxiety Hypertension History of heart attack Edema Pancreatitis Skin cancer History of cataract CAD (coronary artery disease) Allergies Hypertension Hyponatremia History of fall Atrial fibrillation Cholecystectomy planned Osteoarthritis Hypertension History of heart attack Surgical History H/O hemorrhoidectomy History of cataract surgery H/O wrist surgery H/O shoulder surgery History of hip replacement History of shoulder surgery History of right hip replacement Family History Sister Colon cancer Brother Prostate cancer Other Family history of hypertension Heart disease Hypertension Leukemia Skin cancer Social History (Updated 10/24/23 @ 06:41 by Emelyn Mcneil RN) Smoking Status: Former smoker alcohol intake: never substance use type: denies use current occupational status: unemployed and retired Travel in the last 8 weeks: None household members: none housing: house current occupational exposures/hazards: No caffeine: No Review of Systems Review of Systems Review of systems:: pertinent systems reviewed and negative unless documented below Meds Home Medications and Allergies Home Medications Medication Instructions Recorded Confirmed Type amiloride 5 mg-hydrochlorothiazide 1 tab PO DAILY 02/13/18 10/24/23 History 50 mg tablet aspirin 81 mg chewable tablet 81 mg PO DAILY 02/13/18 10/24/23 History acetaminophen 500 mg capsule 500 mg PO Q6H PRN pain or fever 01/25/23 10/24/23 History alendronate 70 mg tablet 70 mg PO WEEKLY 01/25/23 10/24/23 History metoprolol tartrate 25 mg tablet 25 mg PO BID 01/25/23 10/24/23 History multivitamin 1 tab PO DAILY Supplement 01/25/23 10/24/23 History docusate sodium 100 mg capsule 100 mg PO DAILY 07/08/23 10/24/23 History warfarin 1 mg tablet 1 mg PO DAILY 10/20/23 10/24/23 History amoxicillin 500 mg tablet 500 mg PO BID 10/24/23 10/24/23 History melatonin 3 mg capsule 3 mg PO HS 10/24/23 10/24/23 History New Prescriptions to Start Prescriptions: Allergies Allergy/AdvReac Type Severity Reaction Status Date / Time No Known Allergies Allergy Verified 10/20/23 13:53 Exam Data for Last 24 hours Vital signs and Labs for Last 24 Hours: Temp Pulse Resp BP Pulse Ox O2 Del Method O2 Flow Rate 97.7 F 142 H 24 122/86 98 Nasal Cannula 2 10/24/23 02:38 10/24/23 02:38 10/24/23 02:38 10/24/23 02:38 10/24/23 02:38 10/24/23 02:38 10/24/23 02:38 Laboratory Results - last 24 hr 10/24/23 02:44: WBC 5.8, RBC 4.10 L, Hgb 12.6, Hct 39.1, MCV 95.5, MCH 30.7, MCHC 32.1, RDW 13.8, Plt Count 232, MPV 7.8, Neut % (Auto) 55.0, Lymph % (Auto) 34.3, Carson % (Auto) 4.4, Eos % (Auto) 5.1, Baso % (Auto) 1.0, Neut # (Auto) 3.2, Lymph # (Auto) 2.0, Carson # (Auto) 0.3, Eos # (Auto) 0.3, Baso # (Auto) 0.1, PT 45.5 H, INR 4.66 H, APTT 49.0 H, D-Dimer 0.28, Sodium 126 L, Potassium 3.4 L, Chloride 92 L, Carbon Dioxide 32 H, Anion Gap 5.4, BUN 14, Creatinine 0.50 L, Estimated Creat Clear 37, Estimated GFR 116, Est GFR ( Amer) 141, Glucose 126 H, Calcium 8.7, Magnesium 1.3 L, Total Bilirubin 1.0, AST 61 H, ALT 46, Alkaline Phosphatase 171 H, Troponin I 0.01, NT-Pro-B Natriuret Pep 845 H, Total Protein 6.6 D, Albumin 3.6, Globulin 3.0, Albumin/Globulin Ratio 1.2, TSH 2.51, Thyroxine (T4) 10.2 Temp Pulse Resp BP Pulse Ox 97.5 F L 79 20 110/74 95 05/08/22 16:32 05/08/22 16:32 05/08/22 16:32 05/08/22 16:32 05/08/22 16:32 Laboratory Results - last 24 hr 05/08/22 16:44: WBC 5.6, RBC 4.15 L, Hgb 12.8, Hct 39.3, MCV 94.8, MCH 30.8, MCHC 32.5, RDW 13.7, Plt Count 219, MPV 7.3 L, Neut % (Auto) 81.5 H, Lymph % (Auto) 10.9, Carson % (Auto) 4.5, Eos % (Auto) 1.1, Baso % (Auto) 2.0, Neut # (Auto) 4.6, Lymph # (Auto) 0.6 L, Carson # (Auto) 0.3, Eos # (Auto) 0.1, Baso # (Auto) 0.1 05/08/22 16:44: Sodium 128 L, Potassium 3.9, Chloride 88 L, Carbon Dioxide 33 H, Anion Gap 10.9, BUN 17, Creatinine 0.70, Estimated Creat Clear 33, Estimated GFR 79, Est GFR ( Amer) 96, Glucose 141 H, Calcium 9.1, Total Bilirubin 0.4, AST 32, ALT 19, Alkaline Phosphatase 92, Total Protein 7.2, Albumin 4.0, Globulin 3.2, Albumin/Globulin Ratio 1.3 I & O for Last 24 hours: Intake & Output 10/21/23 10/22/23 10/23/23 10/24/23 23:59 23:59 23:59 23:59 Weight 61.689 kg Intake & Output 05/05/22 05/06/22 05/07/22 05/08/22 23:59 23:59 23:59 23:59 Weight 53.07 kg Constitutional Constitutional: no acute distress *Routine HEENT Exam Head: Present normocephalic Eye: Present EOMI ENT: Present mucous membranes dry *Routine Neck Exam Neck: Present supple *Routine Respiratory Exam Respiratory: Present CTA bilaterally *Routine Cardiovascular Exam Cardiovascular: Present Normal S1 and Normal S2 *Routine Abdominal Exam Abdominal: Present soft and normoactive bowel sounds *Routine Rectal Exam Rectal:: deferred *Routine Genitalia Exam Genitalia:: deferred *Routine Extremities Exam Extremities: Present tenderness Comments: Right Hip externally rotated, shorter in length compared to the left lower extremity H&P: Result Imaging and Cardiology EKG: Status: image reviewed by me, Preliminary report and final report Assessment and Plan *Assessment and plan (1) Atrial fibrillation with RVR: Status: Acute Category: Medical Code(s): I48.91 - Unspecified atrial fibrillation (2) Hyponatremia: Status: Acute Category: Medical Code(s): E87.1 - Hypo-osmolality and hyponatremia (3) Hypokalemia: Status: Acute Category: Medical Code(s): E87.6 - Hypokalemia (4) Hypomagnesemia: Status: Acute Category: Medical Code(s): E83.42 - Hypomagnesemia (5) Supratherapeutic INR: Status: Acute Category: Medical Code(s): R79.1 - Abnormal coagulation profile (6) CAD (coronary artery disease): Status: Acute Category: Medical Code(s): I25.10 - Atherosclerotic heart disease of [place] coronary artery without angina pectoris (7) Hypertension: Status: Acute Category: Medical Code(s): I10 - Essential (primary) hypertension (8) Anemia: Status: Acute Category: Medical Code(s): D64.9 - Anemia, unspecified Plan 88-year-old female with PMHx of paroxysmal atrial fibrillation on warfarin, CAD, hypertension, hyperlipidemia, anemia of chronic disease, and general debility brought [facility] evaluation with concern for palpitations. EMS arrived with the patient who noted that on EKG, she was in atrial fibrillation with RVR rates 140-150's. O arrival received a bolus of IV fluids as well as oral aspirin. She was also given 25 mg metoprolol PO as well as IV metoprolol 5 mg x 3 to attempt cardioversion/rate control. Patient's blood pressure tolerated this well, but she only had a transient improvement in heart rate and went back up into the 140s to 150s. She refused electrical cardioversion . started on drip. suddenly became hypotensive and bradycardic. Cardizem drip stopped and started on epi infusion. Cardiology is onboard. Discussed with ED for admission. Medicine agreed. plan as follow: Afib with RVR evolved to bradycardia and hypotention: admit patient for ICU cardiac monitoring Cardiology consult on epi drip monitor for HR and cardiac rhythm labs daily replace electrolytes per [employer] Supratherapeutic INR pharmacy to dose wafarin Resume home regimen chronic conditions reviewed DNR patient is seen at bedside by myself independently, agree with [employer] note. Discussed with cardiology - plan is to discontinue the Epi drip, monitor on telemetry, await echo results, and f/u on final cardiology recommendations likely DC tomorrow
--- NOTE | 2023-10-24 04:35 | PC.NURSE ---
Mag stopped as well as Dilt d/t BP
[2023-10-24] MEDS: ACETAMINOPHEN 325MG TAB 650 MG PO (05:01)
--- NOTE | 2023-10-24 05:29 | ECG_ITS ---
APPROVED REPORT Exam: Resting ECG HR:41 bpm ECG Measurements Heart Rate 41 AXES QRSd 80 QRS 49 QT 507 T 24 QTc 445 Conclusion SUPRAVENTRICULAR BRADYCARDIA LOW QRS VOLTAGE IN PRECORDIAL LEADS [QRS DEFLECTION < 1.0 mV IN CHEST LEADS] SEPTAL MYOCARDIAL INFARCTION , PROBABLY OLD [40+ ms Q WAVE IN V1/V2] ABNORMAL ECG UNCONFIRMED REPORT Electronically signed by : Isauro Brice MD 10/25/2023 21:37:13
--- NOTE | 2023-10-24 05:35 | PC.NURSE ---
During my call to floor to give report, pt HR on monitor read 0 for a moment HR then went to 31-42 bpm, Dr Marin at bedside, Calcium Gluconate and Epi gtt started per Dr saucedo.
[2023-10-24] MEDS: CALCIUM GLUC IN NACL, ISO-OSM 2 GM/100 ML BAG IV (05:39)
--- NOTE | 2023-10-24 05:47 | PC.NURSE ---
Dr. Castellanos paged
--- NOTE | 2023-10-24 05:48 | PC.NURSE ---
Dr. Castellanos returned call on phone with
--- NOTE | 2023-10-24 05:50 | PC.NURSE ---
Pt responding to epi, epi gtt stopped
--- NOTE | 2023-10-24 05:51 | PC.NURSE ---
2nd floor notified that patient is ready to be transported to floor
[2023-10-24] MEDS: ONDANSETRON 4MG/2ML VIAL 4 MG IV (06:06)
[2023-10-24] MEDS: GLUCAGON 5 MG IV (06:07)
--- NOTE | 2023-10-24 06:07 | PC.NURSE ---
glucagon 1mg vial x 5 will not scan for order, verified with Monica P
--- NOTE | 2023-10-24 06:15 | PC.NURSE ---
Patient arrived to floor via stretcher from ED at 6:09.
[2023-10-24] MEDS: EPINEPHrine 5 MG in 0.9 % SODIUM CHLORIDE 250 ML 6.12000000000000011 MG IV (06:29)
--- NOTE | 2023-10-24 06:49 | CA_ITS ---
APPROVED REPORT EXAM: Comprehensive 2D, Doppler, and color-flow Echocardiogram Wheat Cleaner: Macarena Figueroa RDCS Ht: 5 ft 4 in Wt: 136lbs BSA: 1.66 BP: 122/86 mmHg Indications: H/O PAF,CAD HTN,HLP M-Mode Dimensions RVDd 1.75 cm (0.9-2.6) LA Diam 3.62 cm (1.9-4.0) LVDd 4.14 cm (3.5-5.7) LVDs 3.04 cm (3.5-5.7) IVSd 0.61 cm (0.6-1.1) PWd 0.79 cm (0.6-1.1) EF (Teich) 52.30% FS 26.60% EDV (Teich) 75.90 mL ESV (Teich) 36.20 mL LV Diastology E Decel Time 227 (160-240 msec) E/A Ratio 1.1 Mitral Valve MV E Max Viral. 73.0 (40-130 cm/s) MV A Velocity 69.0 (40-130 cm/s) E/A Ratio 1.06 MV PHT 66.0 ms Tricuspid Valve TR P. Velocity 283.00 cm/s RAP Estimate 10.00 mmHg RVSP 42.10 mmHg Left Ventricle The left ventricle is normal size. The left ventricular systolic function is normal. The left ventricular ejection fraction is within the normal range. There is normal left ventricular wall thickness. There is normal LV segmental wall motion. The left ventricular diastolic function is normal. LVEF is 60%. Right Ventricle The right ventricle is normal size. The right ventricular systolic function is normal. Atria Left atrium is mildly dilated. Right atrium is mildly dilated. There is no Doppler evidence of interatrial shunt. Aortic Valve The aortic valve is mildly thickened. There is no aortic valvular stenosis. No aortic regurgitation is present. Mitral Valve The mitral valve is normal in structure. No evidence of mitral valve stenosis. Trace mitral regurgitation. Tricuspid Valve The tricuspid valve leaflets are thin and pliable. Mild tricuspid regurgitation. RVSP is 30-35 mmHg. Pulmonic Valve The pulmonary valve is normal in structure. Trace pulmonic regurgitation. Great Vessels The aortic root is normal in size. The ascending aorta is normal in size. IVC is normal in size and collapses >50% with inspiration. Pericardium There is no pericardial effusion. Other Information Study Quality: Fair Conclusion Normal biventricular systolic function. Mild biatrial dilation. Mild TR. RVSP 30-35 mmHg. Electronically signed by : Charla Martínez MD 10/27/2023 00:05:01
[2023-10-24 08:47] LABS: Basophils # 0.1 K/mm3 (0-0.2); Eosinophils # 0.1 K/mm3 (0.0-0.4); Lymphocytes # 1.1 K/mm3 (0.7-4.5); Mean Corpuscular Volume 92.7 fl (81-99); Mean Platelet Volume 8.3 fl (7.4-10.4); Red Cell Distribution Width 13.9 % (11.5-17.5); White Blood Count 9.7 K/mm3 (4.8-10.8)
[2023-10-24 08:49] LABS: Basophils % 1.3 % (0.1-2.0); Eosinophils % 1.2 % (0.1-12.0); Hematocrit 33.4 % (37.0-47.0); Hemoglobin 11.2 g/dL (12.2-16.2); Lymphocytes % 11.4 % (10-50); Mean Corpuscular HGB Conc 33.4 g/dL (31.8-35.4); Monocytes # 0.3 K/mm3 (0.1-1.0); Neutrophils # 8.1 K/mm3 (1.8-7.8); Neutrophils % 83.1 % (37.0-80.0); Platelet Count 239 K/mm3 (142-424); Red Blood Count 3.61 M/mm3 (4.20-5.40)
--- NOTE | 2023-10-24 09:09 | HMH.PHAINT1 ---
Pharmacy Intervention Comments: home medication list verified using list from residential
[2023-10-24 09:12] LABS: Alanine Aminotransferase 58 U/L (12-78); Albumin Level 3.2 g/dl (3.5-5.0); Albumin/Globulin Ratio 1.1 (1.1-1.8); Alkaline Phosphatase 132 U/L (38-126); Anion Gap 12.6 mEq/L (5-15); Aspartate Amino Transferase 93 U/L (14-36); Blood Urea Nitrogen 15 mg/dl (7-17); Calcium 8.8 mg/dl (8.4-10.2); Carbon Dioxide 27 mmol/L (22.0-30.0); Chloride 94 mmol/L (98-107); Creatinine Clearance Estimated 37 mL/min (50-200); Estimated Glomerular Filt Rate 116 ml/min (>60); GFR (African American) 141 ML/MIN (>60); Globulin 2.9 g/dL (1.3-3.2); Glucose 176 mg/dl (74-100); Potassium 4.6 mmoL/L (3.5-5.1); Sodium 129 mmol/L (136-145); Total Protein,Serum 6.1 g/dl (6.3-8.2)
[2023-10-24 09:24] LABS: Troponin I 0.05 ng/ml (0.00-0.034)
--- NOTE | 2023-10-24 09:24 | SW/DCPLANNER ---
Addendum entered by Gricelda Carter 10/25/23 10:09: I have updated Marina dowell/ [facility] the plan for this patient is to return today [facility] level of care. Original Note: This patient currently resides at [facility] level of care. Updated patient information has been faxed to Marina dowell/ [facility]. Discharge date is unknown at this time. I will continue to follow up.
--- NOTE | 2023-10-24 10:43 | EXP.CARD.CON ---
History of Present Illness History of Present Illness Consult date: 10/24/23 Requesting physician: Vanessa Garcia Chief complaint: Palpitations History of present illness: This is a 88-year-old white female with past medical history of paroxysmal atrial fibrillation on Coumadin, hypertension and hyperlipidemia who presented to emergency department with complaints of palpitations and chest pain. Patient reports she had diarrhea for the past 3 days which had started to improve yesterday. Last night she awoke with heart racing and chest pain rating to left shoulder and arm. Upon presentation to emergency department patient was noted to be in A-fib RVR at a rate of 130-150. EKG was negative for acute ischemic changes. Trop elevated to 0.05. Additional labs as follow: WBC 5.8, hemoglobin 12.6, INR 4.6, D-dimer negative, sodium 126, potassium 3.4, creatinine 0.5, magnesium 1.3, AST 61, alk phos 171, proBNP 845, TSH normal. Chest x-ray shows chronic interstitial changes. Patient was given metoprolol succinate 25 mg orally and was given IV metoprolol 5 mg x 3 in attempt to rate control patient. She was also started on a diltiazem drip. Shortly afterwards patient became hypotensive and bradycardic so drip was stopped and patient received IV glucagon and calcium gluconate. Patient was started on an epinephrine drip. Patient was admitted to the hospital for A-fib RVR. This morning patient is resting comfortably and denies chest pain or shortness of breath. She is currently in normal sinus rhythm at a rate of 60 and is hypertensive with a systolic of 160 on epi drip. Echocardiogram is pending. [facility] Disclaimer: The information contained in this section may have been updated after the patient was seen, as this information can be updated by other users. Medical History Otitis externa of left ear Hearing loss History of COVID-19 Anxiety Hypertension History of heart attack Edema Pancreatitis Skin cancer History of cataract CAD (coronary artery disease) Allergies Hypertension Hyponatremia History of fall Atrial fibrillation Cholecystectomy planned Osteoarthritis Hypertension History of heart attack Surgical History H/O hemorrhoidectomy History of cataract surgery H/O wrist surgery H/O shoulder surgery History of hip replacement History of shoulder surgery History of right hip replacement Family History Sister Colon cancer Brother Prostate cancer Other Family history of hypertension Heart disease Hypertension Leukemia Skin cancer Social History (Updated 10/24/23 @ 06:41 by Emelyn Mcneil RN) Smoking Status: Former smoker alcohol intake: never substance use type: denies use current occupational status: unemployed and retired Travel in the last 8 weeks: None household members: none housing: house current occupational exposures/hazards: No caffeine: No Review of Systems Review of Systems Review of systems:: pertinent systems reviewed and negative unless documented below *Cardiovascular Cardiovascular: Reports chest pain and Reports palpitations Endocrine Endocrine: Reports palpitations Exam Data for Last 24 hours Vital signs and Labs for Last 24 Hours: Temp Pulse Resp BP Pulse Ox O2 Del Method O2 Flow Rate 97.7 F 65 17 149/66 H 97 Room Air 2 10/24/23 08:30 10/24/23 08:00 10/24/23 06:45 10/24/23 06:45 10/24/23 06:45 10/24/23 08:41 10/24/23 02:38 Laboratory Results - last 24 hr 10/24/23 02:44: WBC 5.8, RBC 4.10 L, Hgb 12.6, Hct 39.1, MCV 95.5, MCH 30.7, MCHC 32.1, RDW 13.8, Plt Count 232, MPV 7.8, Neut % (Auto) 55.0, Lymph % (Auto) 34.3, [place] % (Auto) 4.4, Eos % (Auto) 5.1, Baso % (Auto) 1.0, Neut # (Auto) 3.2, Lymph # (Auto) 2.0, [place] # (Auto) 0.3, Eos # (Auto) 0.3, Baso # (Auto) 0.1, PT 45.5 H, INR 4.66 H, APTT 49.0 H, D-Dimer 0.28, Sodium 126 L, Potassium 3.4 L, Chloride 92 L, Carbon Dioxide 32 H, Anion Gap 5.4, BUN 14, Creatinine 0.50 L, Estimated Creat Clear 37, Estimated GFR 116, Est GFR ( Amer) 141, Glucose 126 H, Calcium 8.7, Magnesium 1.3 L, Total Bilirubin 1.0, AST 61 H, ALT 46, Alkaline Phosphatase 171 H, Troponin I 0.01, NT-Pro-B Natriuret Pep 845 H, Total Protein 6.6 D, Albumin 3.6, Globulin 3.0, Albumin/Globulin Ratio 1.2, TSH 2.51, Thyroxine (T4) 10.2 10/24/23 08:40: WBC 9.7 D, RBC 3.61 L, Hgb 11.2 L D, Hct 33.4 L, MCV 92.7, MCH 31.0, MCHC 33.4, RDW 13.9, Plt Count 239, MPV 8.3, Neut % (Auto) 83.1 H, Lymph % (Auto) 11.4, [place] % (Auto) 3.0, Eos % (Auto) 1.2, Baso % (Auto) 1.3, Neut # (Auto) 8.1 H, Lymph # (Auto) 1.1, [place] # (Auto) 0.3, Eos # (Auto) 0.1, Baso # (Auto) 0.1, Sodium 129 L, Potassium 4.6 D, Chloride 94 L, Carbon Dioxide 27, Anion Gap 12.6, BUN 15, Creatinine 0.50 L, Estimated Creat Clear 37, Estimated GFR 116, Est GFR ( Amer) 141, Glucose 176 H D, Calcium 8.8, Total Bilirubin 1.0, AST 93 H D, ALT 58 D, Alkaline Phosphatase 132 H, Troponin I 0.05 H, Total Protein 6.1 L, Albumin 3.2 L D, Globulin 2.9, Albumin/Globulin Ratio 1.1 I & O for Last 24 hours: Intake & Output 10/21/23 10/22/23 10/23/23 10/24/23 23:59 23:59 23:59 23:59 Intake Total 254.260 / 254.260 Output Total 0 / 0 Balance 254.260 / 254.260 Weight 136 lb Constitutional Constitutional: no acute distress *Routine Respiratory Exam Respiratory: Present CTA bilaterally and symmetric chest movement *Routine Cardiovascular Exam Cardiovascular: Present RRR, Normal S1 and Normal S2 *Routine Abdominal Exam Abdominal: Present soft and normoactive bowel sounds; Absent tenderness *Routine Extremities Exam Extremities: Present full ROM and normal capillary refill; Absent edema *Routine Skin Exam Skin: Present intact, dry and warm Detailed Neck Exam: Thyroids Thyroid: Absent bruit Meds Home Medications and Allergies Home Medications Medication Instructions Recorded Confirmed Type amiloride 5 mg-hydrochlorothiazide 1 tab PO DAILY 02/13/18 10/24/23 History 50 mg tablet aspirin 81 mg chewable tablet 81 mg PO DAILY 02/13/18 10/24/23 History acetaminophen 500 mg capsule 500 mg PO Q6H PRN pain or fever 01/25/23 10/24/23 History alendronate 70 mg tablet 70 mg PO WEEKLY 01/25/23 10/24/23 History metoprolol tartrate 25 mg tablet 25 mg PO BID 01/25/23 10/24/23 History multivitamin 1 tab PO DAILY Supplement 01/25/23 10/24/23 History docusate sodium 100 mg capsule 100 mg PO DAILY 07/08/23 10/24/23 History warfarin 1 mg tablet 1 mg PO DAILY 10/20/23 10/24/23 History amoxicillin 500 mg tablet 500 mg PO BID 10/24/23 10/24/23 History melatonin 3 mg capsule 3 mg PO HS 10/24/23 10/24/23 History New Prescriptions to Start Prescriptions: Allergies Allergy/AdvReac Type Severity Reaction Status Date / Time No Known Allergies Allergy Verified 10/20/23 13:53 Assessment and Plan *Assessment and plan (1) Supratherapeutic INR: Status: Acute Category: Medical Code(s): R79.1 - Abnormal coagulation profile (2) Atrial fibrillation with RVR: Status: Acute Category: Medical Code(s): I48.91 - Unspecified atrial fibrillation (3) Anticoagulated on Coumadin: Status: Acute Category: Medical Code(s): Z51.81 - Encounter for therapeutic drug level monitoring; Z79.01 - welder repair (current) use of anticoagulants (4) Chest pain: Status: Acute Category: Medical Code(s): R07.9 - Chest pain, unspecified Plan A-fib RVR Chadsvasc scroe > 2 Anticoagulated with Coumadin Supratherapeutic INR -Patient is currently in normal sinus rhythm rate of 65 -On coumadin, INR 4.6 -Pharmacy to dose coumadin, therapeutic INR range 2-3 Acute myocardial injury -Troponin 0.05 in the setting of afib rvr -EKG without acute ischemic changes noted -Preliminary EF is normal, official echo read is pending -Recommend outpatient stress test as needed. CV summary 10/24/2023: Patient is cv stable for dc home. Please have patient continue meds as outlined above. Please have patient follow-up in cardiology clinic on Tuesday for reevaluation.
[2023-10-24] MEDS: LISINOPRIL 20MG TABLET 40 MG PO (14:46)
[2023-10-24] MEDS: METOPROLOL TARTRATE 25MG TABLET 12.5 MG PO ×2 (14:46→21:06)
--- NOTE | 2023-10-24 17:26 | PC.NURSE ---
PT IS RESTING IN BED. ALERT AND ORIENTED X4. EATING AND DRINKING WELL. LUNG SOUNDS CLEAR. NSR ON TELEMETRY. ABDOMEN SOFT/NON TENDER WITH ACTIVE BOWEL SOUNDS. SMALL DRY AREA NOTED TO THE RIGHT BUTTOCKS. PT HAS BEEN INCONTINENT OF BOWEL/BLADDER. WILL CONTINUE TO MONITOR.
[2023-10-24] MEDS: PANTOPRAZOLE 40MG VIAL 40 MG IV (21:06)
[2023-10-25] VITALS: BP 101/51; PULSE 61; PULSE 63; RESP 16; TEMP 36.7; O2SAT 98
[2023-10-25 04:00] VITALS: BP 127/62; PULSE 66; PULSE 69; RESP 17; TEMP 36.7; O2SAT 98; BMI 21.3
--- NOTE | 2023-10-25 04:28 | PC.NURSE ---
pt has remained in nsr
[2023-10-25 06:42] LABS: Basophils % 0.6 % (0.1-2.0); Eosinophils # 0.2 K/mm3 (0.0-0.4); Hematocrit 34.3 % (37.0-47.0); Hemoglobin 10.9 g/dL (12.2-16.2); Lymphocytes # 1.6 K/mm3 (0.7-4.5); Lymphocytes % 23.6 % (10-50); Mean Corpuscular HGB Conc 31.9 g/dL (31.8-35.4); Mean Corpuscular Hemoglobin 30.3 pg (27.0-31.2); Mean Corpuscular Volume 95.1 fl (81-99); Mean Platelet Volume 7.7 fl (7.4-10.4); Monocytes # 0.4 K/mm3 (0.1-1.0); Monocytes % 5.7 % (1.7-9.3); Neutrophils # 4.6 K/mm3 (1.8-7.8); Neutrophils % 67.2 % (37.0-80.0); Platelet Count 223 K/mm3 (142-424); Red Blood Count 3.61 M/mm3 (4.20-5.40); Red Cell Distribution Width 13.9 % (11.5-17.5); White Blood Count 6.9 K/mm3 (4.8-10.8)
[2023-10-25 06:55] LABS: Blood Urea Nitrogen 11 mg/dl (7-17); Calcium 8.4 mg/dl (8.4-10.2); Carbon Dioxide 34 mmol/L (22.0-30.0); Chloride 95 mmol/L (98-107); Creatinine Clearance Estimated 34 mL/min (50-200); Estimated Glomerular Filt Rate 94 ml/min (>60); GFR (African American) 114 ML/MIN (>60); Glucose 93 mg/dl (74-100); Sodium 132 mmol/L (136-145)
[2023-10-25 07:44] VITALS: BP 144/69; PULSE 70; RESP 18; TEMP 36.6; O2SAT 97
--- NOTE | 2023-10-25 07:44 | PC.NURSE ---
critical potassium called to
--- NOTE | 2023-10-25 07:53 | P.DS_ITS ---
General Admission date:: 10/24/23 Discharge date: 10/25/23 HPI HPI HPI: This is a 88-year-old female with PMHx of paroxysmal atrial fibrillation on warfarin, CAD, hypertension, hyperlipidemia, anemia of chronic disease, and general debility brought into the emergency department from senior care facility for evaluation with concern for palpitations. The patient states that she had been asleep for about 20 minutes tonight when she woke up with her heart racing. She also states she is having some pain in between her shoulder blades and down her left arm. She notes yesterday she felt fine and she felt fine when she went to bed. She states that prior to yesterday, she had had a diarrheal illness for approximately 3 days. She notes this is improved. No other concerns noted, such as fevers, chills, shortness of breath, nausea, vomiting, or other issues. Hospital Course Hospital Course Hospital Course: 88-year-old female with PMHx of paroxysmal atrial fibrillation on warfarin, CAD, hypertension, hyperlipidemia, anemia of chronic disease, and general debility brought into the emergency department from senior care facility for evaluation with concern for palpitations. EMS arrived with the patient who noted that on EKG, she was in atrial fibrillation with RVR rates 140-150's. O arrival received a bolus of IV fluids as well as oral aspirin. She was also given 25 mg metoprolol PO as well as IV metoprolol 5 mg x 3 to attempt cardioversion/rate control. Patient's blood pressure tolerated this well, but she only had a transient improvement in heart rate and went back up into the 140s to 150s. She refused electrical cardioversion . started on drip. suddenly became hypotensive and bradycardic. Cardizem drip stopped and started on epi infusion. Cardiology is onboard. Discussed with ED for admission. Medicine agreed. plan as follow: Afib with RVR evolved to bradycardia and hypotention: Anticoagulated on Coumadin, [id number] score greater than 2 Supratherapeutic INR Elevated troponin Patient was from the ER for further management of her A-fib with RVR. Cardiology was consulted. INR on admission elevated at 4.6. Coumadin held during admission. Repeat INR on morning of discharge 3.5. Recommend resuming Coumadin on 10/25. Needs repeat INR in 3 days to make further adjustments to her Coumadin dose. Will continue metoprolol tartrate 25 mg twice daily. Blood pressure doing better on current regimen. See med rec for full details. Cardiology recommends follow-up with their office in the coming days. Stable to discharge back to home setting for continued care and management. Troponin elevated during admission in the setting of A-fib with RVR. Suspect type II NSTEMI. Will need further management and evaluation with cardiology as an outpatient. Of note, potassium low. Replaced during admission. Will continue for 5 days with supplementation. Recommend repeat CMP in 1 week Exam Data for Last 24 hours Vital signs and Labs for Last 24 Hours: Temp Pulse Resp BP Pulse Ox O2 Del Method O2 Flow Rate 97.8 F 70 18 144/69 H 97 Room Air 2 10/25/23 07:44 10/25/23 07:44 10/25/23 07:44 10/25/23 07:44 10/25/23 07:44 10/25/23 07:44 10/24/23 02:38 Laboratory Results - last 24 hr 10/24/23 08:40: WBC 9.7 D, RBC 3.61 L, Hgb 11.2 L D, Hct 33.4 L, MCV 92.7, MCH 31.0, MCHC 33.4, RDW 13.9, Plt Count 239, MPV 8.3, Neut % (Auto) 83.1 H, Lymph % (Auto) 11.4, [place] % (Auto) 3.0, Eos % (Auto) 1.2, Baso % (Auto) 1.3, Neut # (Auto) 8.1 H, Lymph # (Auto) 1.1, [place] # (Auto) 0.3, Eos # (Auto) 0.1, Baso # (Auto) 0.1, Sodium 129 L, Potassium 4.6 D, Chloride 94 L, Carbon Dioxide 27, Anion Gap 12.6, BUN 15, Creatinine 0.50 L, Estimated Creat Clear 37, Estimated GFR 116, Est GFR ( Amer) 141, Glucose 176 H D, Calcium 8.8, Total Bilirubin 1.0, AST 93 H D, ALT 58 D, Alkaline Phosphatase 132 H, Troponin I 0.05 H, Total Protein 6.1 L, Albumin 3.2 L D, Globulin 2.9, Albumin/Globulin Ratio 1.1 10/25/23 06:05: WBC 6.9 D, RBC 3.61 L, Hgb 10.9 L, Hct 34.3 L, MCV 95.1, MCH 30.3, MCHC 31.9, RDW 13.9, Plt Count 223, MPV 7.7, Neut % (Auto) 67.2, Lymph % (Auto) 23.6, [place] % (Auto) 5.7, Eos % (Auto) 3.0, Baso % (Auto) 0.6, Neut # (Auto) 4.6, Lymph # (Auto) 1.6, [place] # (Auto) 0.4, Eos # (Auto) 0.2, Baso # (Auto) 0.0, Sodium 132 L, Potassium 3.0 L D, Chloride 95 L, Carbon Dioxide 34 H, Anion Gap 6.0, BUN 11 D, Creatinine 0.60, Estimated Creat Clear 34, Estimated GFR 94, Est GFR ( Amer) 114, Glucose 93 D, Calcium 8.4 I & O for Last 24 hours: Intake & Output 10/22/23 10/23/23 10/24/23 10/25/23 23:59 23:59 23:59 23:59 Intake Total 974.260 / 974.260 Output Total 0 / 0 350 / 350 Balance 974.260 / 974.260 -350 / -350 Weight 61.689 kg 56.744 kg Constitutional Constitutional: no acute distress, average body habitus and chronically ill appearing *Routine HEENT Exam Head: Present normocephalic Eye: Present EOMI and PERRL ENT: Present mucous membranes moist *Routine Neck Exam Neck: Present supple; Absent lymphadenopathy *Routine Respiratory Exam Respiratory: Present CTA bilaterally *Routine Cardiovascular Exam Cardiovascular: Present RRR *Routine Abdominal Exam Abdominal: Present soft and normoactive bowel sounds; Absent tenderness *Routine Extremities Exam Extremities: Absent cyanosis, clubbing or edema *Routine Skin Exam Skin: Present warm; Absent rash *Routine Neurological Exam Neurological: Present alert and moving all extremities; Absent altered mental status Results Data Completed and Pending Labs on day of discharge: Labs from last 24 hours 10/25/23 10/24/23 06:05 08:40 WBC 6.9 D 9.7 D RBC 3.61 L 3.61 L Hgb 10.9 L 11.2 L D Hct 34.3 L 33.4 L MCV 95.1 92.7 MCH 30.3 31.0 MCHC 31.9 33.4 RDW 13.9 13.9 Plt Count 223 239 MPV 7.7 8.3 Neut % (Auto) 67.2 83.1 H Lymph % (Auto) 23.6 11.4 [place] % (Auto) 5.7 3.0 Eos % (Auto) 3.0 1.2 Baso % (Auto) 0.6 1.3 Neut # (Auto) 4.6 8.1 H Lymph # (Auto) 1.6 1.1 [place] # (Auto) 0.4 0.3 Eos # (Auto) 0.2 0.1 Baso # (Auto) 0.0 0.1 Sodium 132 L 129 L Potassium 3.0 L D 4.6 D Chloride 95 L 94 L Carbon Dioxide 34 H 27 Anion Gap 6.0 12.6 BUN 11 D 15 Creatinine 0.60 0.50 L Estimated Creat Clear 34 37 Estimated GFR 94 116 Est GFR ( Amer) 114 141 Glucose 93 D 176 H D Calcium 8.4 8.8 Total Bilirubin 1.0 AST 93 H D ALT 58 D Alkaline Phosphatase 132 H Troponin I 0.05 H Total Protein 6.1 L Albumin 3.2 L D Globulin 2.9 Albumin/Globulin Ratio 1.1 DS: Diagnosis Discharge Diagnosis (1) Atrial fibrillation with RVR: Status: Acute Code(s): I48.91 - Unspecified atrial fibrillation (2) Supratherapeutic INR: Status: Acute Code(s): R79.1 - Abnormal coagulation profile (3) Anticoagulated on Coumadin: Status: Acute Code(s): Z51.81 - Encounter for therapeutic drug level monitoring; Z79.01 - shelter (current) use of anticoagulants (4) Chest pain: Status: Acute Code(s): R07.9 - Chest pain, unspecified (5) NSTEMI (non-ST elevated myocardial infarction): Status: Acute Code(s): I21.4 - Non-ST elevation (NSTEMI) myocardial infarction (6) Hypokalemia: Status: Acute Code(s): E87.6 - Hypokalemia Meds Home Medications and Allergies Home Medications Medication Instructions Recorded Confirmed Type aspirin 81 mg chewable tablet 81 mg PO DAILY 02/13/18 10/24/23 History acetaminophen 500 mg capsule 500 mg PO Q6H PRN pain or fever 01/25/23 10/24/23 History alendronate 70 mg tablet 70 mg PO WEEKLY 01/25/23 10/24/23 History metoprolol tartrate 25 mg tablet 25 mg PO BID 01/25/23 10/24/23 History multivitamin 1 tab PO DAILY Supplement 01/25/23 10/24/23 History docusate sodium 100 mg capsule 100 mg PO DAILY 07/08/23 10/24/23 History warfarin 1 mg tablet 1 mg PO DAILY 10/20/23 10/24/23 History melatonin 3 mg capsule 3 mg PO HS 10/24/23 10/24/23 History lisinopril 20 mg tablet 40 mg (2 x 20 mg) PO DAILY 30 days 10/25/23 Rx #60 tabs potassium chloride 20 mEq 20 meq PO BID 5 days #10 tabs 10/25/23 Rx tablet,extended release(part/cryst) (Klor-Con M) New Prescriptions to Start Prescriptions: lisinopril Anderson Bridges potassium chloride [Klor-Con M20] Anderson Bridges Allergies Allergy/AdvReac Type Severity Reaction Status Date / Time No Known Allergies Allergy Verified 10/20/23 13:53 Discharge Plan Disposition Patient Disposition: [facility] Intermediate Care Fac Condition: Fair Discharge Order Discharge Orders: Discharge Order (Routine); Ordered 10/25/23 Ordered By: Anderson Bridges Follow up Plan Follow up with: Leo Martínez MD [Staff Physician] - Enter time for follow up Prescriptions/Medication Reconciliation: New potassium chloride [Klor-Con M20] 20 mEq Tablet,Er Particles/Crystals 20 meq PO BID 5 Days Qty: 10 0RF lisinopril 20 mg Tablet 40 mg PO DAILY 30 Days Qty: 60 0RF Continued warfarin 1 mg tablet 1 mg PO DAILY aspirin 81 mg tablet,chewable 81 mg PO DAILY docusate sodium 100 mg capsule 100 mg PO DAILY multivitamin Tablet 1 tab PO DAILY alendronate 70 mg Tablet 70 mg PO WEEKLY acetaminophen 500 mg Capsule 500 mg PO Q6H PRN (Reason: pain or fever) metoprolol tartrate 25 mg Tablet 25 mg PO BID melatonin 3 mg capsule 3 mg PO HS Discontinued amiloride-hydrochlorothiazide 5-50 mg tablet 1 tab PO DAILY Rx Instructions: 5/50MG amoxicillin 500 mg tablet 500 mg PO BID Rx Instructions: LAST DOSE 10/30/23 Problem Reconciliation Problems Reviewed?: Yes Patient Discharge Instructions ACTIVITY: Continue current activity DIET: continue same diet Patient Instructions: DI for Atrial Fibrillation, DI for Hypokalemia Providers Primary Care Provider: Provider,Referral Admit Provider: Og Landon Attending Provider: Vanessa Garcia
[2023-10-25] MEDS: METOPROLOL TARTRATE 25MG TABLET 12.5 MG PO (08:56)
[2023-10-25] MEDS: POTASSIUM CHLORIDE 20MEQ TAB 40 MEQ PO (08:56)
[2023-10-25 09:00] LABS: INR 3.52 (0.9-1.1)
[2023-10-25] MEDS: LISINOPRIL 20MG TABLET 40 MG PO (09:00)
--- NOTE | 2023-10-25 10:19 | PC.NURSE ---
pt is alert and oriented. appropriate. spoke with her regarding her hypokalemia. She states she has struggled with her potassium all of her life. She states she is feeling much better this morning. visitor @ bedside
[2023-10-25 11:24] VITALS: BP 149/71; PULSE 68; RESP 17; TEMP 36.8; O2SAT 95
--- NOTE | 2023-10-25 13:06 | PC.NURSE ---
report called to [facility] Brigida.
== END 2023-10-25 13:07 | DRG 281 ==
LOC: ER 04:22 → 2ND 04:38
PROVIDERS: Emergency Medicine; Internal Medicine Adolescent Medicine; Nurse Practitioner Family; Admitting Provider Internal Medicine; Emergency Provider Internal Medicine; Visit Provider Internal Medicine
DX: I48.0 Paroxysmal atrial fibrillation (principal); E87.1 Hypo-osmolality and hyponatremia; I21.4 Non-ST elevation (NSTEMI) myocardial infarction; E87.6 Hypokalemia; E83.42 Hypomagnesemia; R79.1 Abnormal coagulation profile; I25.10 Atherosclerotic heart disease of native coronary artery without angina pectoris; I10 Essential (primary) hypertension; E78.5 Hyperlipidemia, unspecified; D63.8 Anemia in other chronic diseases classified elsewhere; M19.90 Unspecified osteoarthritis, unspecified site; Z87.891 Personal history of nicotine dependence
CPT/HCPCS: 36415; 71045; 80048; 80053; 83735; 83880; 84436; 84443; 84484; 85025; 85378; 85610; 85730; 93005; 93306; 99291; J1610; J2405; J3475

== ENCOUNTER 2023-11-28 19:28 | Emergency (ER) | payer MEDICARE, OTHER, MEDICAID, SELFPAY ==
[2023-11-28] VITALS (10 sets, daily range): BP systolic 169–194; BP diastolic 83–106; PULSE 71–79; RESP 16–20; TEMP 36.8; O2SAT 94–99; BMI 20.5
--- NOTE | 2023-11-28 20:07 | ED_ITS ---
<Statement entered by Tigre Rivero MD - 11/28/23 21:20> I was consulted by the CECIL, and we discussed the complexity of the problems being addressed. I approved the treatment and management plan for this patient's care in the emergency department, thus performing a substantive portion of the medical decision making. Tigre Rivero MD Discharge Plan Disposition Patient Disposition: Xfer SNF Condition: Good Prescriptions Prescriptions: No Action warfarin 1 mg tablet 1 mg PO DAILY loperamide [Imodium A-D] 2 mg capsule 2 mg PO Q6H PRN furosemide [Lasix] 20 mg tablet 20 mg PO DAILY valsartan 160 mg tablet 160 mg PO DAILY Qty: 30 3RF docusate sodium 100 mg capsule 100 mg PO DAILY multivitamin Tablet 1 tab PO DAILY alendronate 70 mg Tablet 70 mg PO WEEKLY acetaminophen 500 mg Capsule 500 mg PO Q6H PRN (Reason: pain or fever) metoprolol tartrate 25 mg Tablet 25 mg PO BID melatonin 3 mg capsule 3 mg PO HS Referrals Follow up/Referrals: Zheng Ferguson MD [Primary Care Provider] - See instructions Activity Restrictions/Add. Instructions Additional Instructions/Restrictions: Patient may benefit from a speech evaluation at some point in the future however for now follow-up with your PCP as needed for any worsening signs or symptoms. Clinical Impressions Clinical Impression: Aspiration into airway Qualifiers: Encounter type: initial encounter Qualified Code(s): T17.908A - Unspecified foreign body in respiratory tract, part unspecified causing other injury, initial encounter Discharge ED Provider: Tigre Rivero General Adult HPI General Chief complaint: Recheck/Abnormal Lab/Rx Stated complaint: choked at dinner time Time Seen by Provider: 11/28/23 19:30 Mode of Arrival: EMS Source of Information: Patient Limitations: Physical Limitations Description of Symptoms (Recalled from ER Triage Doc. by RN): Pt. presented to the ED with EMS after having a choking episode at dinner. Pt. from [facility]. Pt. states that she is fine now. History of Present Illness HPI narrative: Patient presented from detention for evaluation of a choking episode. Patient states that she was eating tater tots and took a drink of lemonade and aspirated a little bit of the water began choking. Patient did not have prolonged episode and reports that she recovered without assistance. Staff stated that she needed to come to the hospital for evaluation so EMS was called and brought her here. Event occurred approximately 5 PM. Patient does not have swallowing difficulty that is known. Patient currently denies any difficulty breathing chest pain shortness of breath fever chills hemoptysis hematochezia melena nausea vomiting diarrhea. Related Data Home Medications Medication Instructions Recorded Confirmed acetaminophen 500 mg capsule 500 mg PO Q6H PRN pain or fever 01/25/23 11/22/23 alendronate 70 mg tablet 70 mg PO WEEKLY 01/25/23 11/22/23 metoprolol tartrate 25 mg tablet 25 mg PO BID 01/25/23 11/22/23 multivitamin 1 tab PO DAILY Supplement 01/25/23 11/22/23 docusate sodium 100 mg capsule 100 mg PO DAILY 07/08/23 11/22/23 warfarin 1 mg tablet 1 mg PO DAILY 10/20/23 11/22/23 melatonin 3 mg capsule 3 mg PO HS 10/24/23 11/22/23 furosemide 20 mg tablet (Lasix) 20 mg PO DAILY 11/10/23 11/22/23 loperamide 2 mg capsule (Imodium 2 mg PO Q6H PRN 11/10/23 11/22/23 A-D) Previous Rx's Medication Instructions Recorded valsartan 160 mg tablet 160 mg PO DAILY #30 tabs 11/10/23 Allergies Allergy/AdvReac Type Severity Reaction Status Date / Time lisinopril AdvReac Mild cough Uncoded 11/22/23 15:04 [facility] Disclaimer: The information contained in this section may have been updated after the patient was seen, as this information can be updated by other users. Medical History Closed right hip fracture Closed fracture of proximal end of right humerus Closed right hip fracture Humeral surgical neck fracture Hip fracture Pelvic fracture Fracture of sacrum with delayed healing Closed fracture of symphysis pubis Ribs, multiple fractures Otitis externa of left ear Hearing loss History of COVID-19 Anxiety Hypertension History of heart attack Edema Pancreatitis Skin cancer History of cataract CAD (coronary artery disease) Allergies Hypertension Hyponatremia History of fall Atrial fibrillation Cholecystectomy planned Osteoarthritis Hypertension History of heart attack Surgical History H/O hemorrhoidectomy History of cataract surgery H/O wrist surgery H/O shoulder surgery haylee History of hip replacement haylee History of shoulder surgery History of right hip replacement Family History Sister Colon cancer Brother Prostate cancer Other Family history of hypertension Heart disease Hypertension Leukemia Skin cancer Social History Smoking Status: Never smoker alcohol intake: never substance use type: denies use current occupational status: unemployed and retired Travel in the last 8 weeks: None household members: none housing: house current occupational exposures/hazards: No caffeine: No ROS Obtained: Yes Systems reviewed as appropriate & no additional complaints except as documented Physical Exam General General appearance: alert and in no apparent distress ENT ENT exam: Present normal exam and normal oropharynx Neck Neck exam: Present normal inspection, full ROM and trachea midline; Absent tenderness Chest Chest inspection: Present normal inspection and symmetric chest wall rise; Absent tenderness Respiratory Respiratory exam: Present normal lung sounds bilaterally; Absent respiratory distress, wheezes, stridor or accessory muscle use Cardiovascular Cardiovascular exam: Present regular rate and normal rhythm Abdominal Exam Abdominal exam: Present soft and normal bowel sounds; Absent tenderness Neurological Exam Neurological exam: Present alert, oriented X3 and CN II-XII intact Psychiatric Psychiatric exam: Present normal affect and normal mood Skin Skin exam: Present warm, dry and normal color Medical Decision Making Medical Records Medical records reviewed: Yes I reviewed the patient's medical records. Jose Inquiry Pt receiving controlled substance: No Vital Signs: 11/28/23 19:28 11/28/23 20:00 Temperature 98.3 F Temperature Source Oral Pulse Rate 73 Pulse Rate [Right Radial] 76 Respiratory Rate 20 20 Blood Pressure 173/83 H Blood Pressure [Right Arm] 193/106 H Blood Pressure Mean [Right Arm] 135 02 Sat by Pulse Oximetry 98 97 Oxygen Delivery Method Room Air Room Air Lab Data Lab results reviewed: Yes I reviewed the patient's lab results. Medical Decision Narrative: In summary patient is a in summary patient is a 8-year-old female who presents to the emergency department for evaluation of aspiration. Patient is hemodynamically stable upon arrival, febrile. Physical exam is unremarkable including normal breath sounds no stridor no difficulty in phonation speech or swallowing.. Differential diagnosis includes upper airway aspiration versus lower airway aspiration. Initial workup was considered including chest x-ray however patient currently has no bolus sensation and has no difficulty breathing or swallowing her secretions and is not drooling. Therefore further workup was deferred. Patient was however given a p.o. challenge which she passed.. Given this patient is appropriate for discharge back to the group home facility with recommendations for possible speech evaluation if aspiration events continue. Critical Care Critical Care Time Critical Care Time: No
--- NOTE | 2023-11-28 21:34 | PC.NURSE ---
Family left to go home, pt placed on purewick for incontinence, additional blankets provided, call light within reach
--- NOTE | 2023-11-28 22:26 | PC.NURSE ---
Spoke with Jocelyn at [facility], updated on pt d/c and status back to their facility
--- NOTE | 2023-11-28 23:58 | PC.NURSE ---
Pt resting at this time
[2023-11-29] VITALS (13 sets, daily range): BP systolic 144–181; BP diastolic 60–87; PULSE 71–77; RESP 15–20; TEMP 36.8; O2SAT 64–98
--- NOTE | 2023-11-29 00:36 | PC.NURSE ---
Pt. sleeping, awaiting tranfer back to [facility].
--- NOTE | 2023-11-29 01:42 | PC.NURSE ---
UOP 600ml from canister emptied, pt provided more warm blankets, no other needs at this time
== END 2023-11-29 03:42 ==
PROVIDERS: Emergency Provider Emergency Medicine; PCP Family Medicine
DX: T17.908A Unspecified foreign body in respiratory tract, part unspecified causing other injury, initial encounter (principal); W44.F3XA Food entering into or through a natural orifice, initial encounter
CPT/HCPCS: 99282